=== PATIENT | male | born 1955 | race Caucasian/White ===

== ENCOUNTER → 2017-09-27 11:11 | Outpatient (CLI) | payer MEDICARE, MEDICAID, SELFPAY ==
[2017-09-27 12:39] LABS: Troponin I < 0.02 ng/ml (0.00-0.06)
== END ==
PROVIDERS: PCP Nurse Practitioner; Visit Provider Nurse Practitioner
DX: I73.9 Peripheral vascular disease, unspecified (principal); I10 Essential (primary) hypertension; M79.602 Pain in left arm
CPT/HCPCS: 36415; 84484

== ENCOUNTER → 2017-09-28 15:04 | Outpatient (CLI) | payer MEDICARE, MEDICAID, SELFPAY ==
--- NOTE | 2017-09-28 15:08 | NVE_ITS ---
Venous Exam Indications: 729.5 Pain in limb. IMPRESSIONS No evidence of deep or superficial vein thrombosis involving the veins of the left upper extremity Left upper extremity venous duplex. Doppler flow study including spectral analysis, color and guzman scale imaging. Location: Vascular laboratory. Patient status: Outpatient. CRITICAL FINDINGS - Reported to: Rosa Maria - Read back and verified. - 09/28/17 - 1530 - None Tables: Venous flow and imaging: + + + Location Flow properties + + + Left internal jugular Normal phasicity; spontaneous; compressible + + + Left subclavian Normal phasicity; spontaneous; normal augmentation; compressible + + + Left axillary Normal phasicity; spontaneous; normal augmentation; compressible + + + Left brachial Normal phasicity; spontaneous; normal augmentation; compressible + + + Left cephalic Normal phasicity; spontaneous; normal augmentation; compressible + + + Left basilic Normal phasicity; spontaneous ; normal augmentation; compressible + + + Left radial Compressible + + + Left ulnar Compressible + + + Right subclavian Normal phasicity; spontaneous; normal augmentation; compressible + + + (Report amended ) Electronically signed by: Mauricio Sellers [id number]
== END ==
PROVIDERS: PCP Nurse Practitioner; Visit Provider Nurse Practitioner
DX: M79.602 Pain in left arm (principal)
CPT/HCPCS: 93971

== ENCOUNTER → 2017-10-10 10:34 | Outpatient (CLI) | payer MEDICARE, MEDICAID, SELFPAY ==
--- NOTE | 2017-10-10 10:38 | NM_ITS ---
NM mike perf SPECT rest str CLINICAL INDICATION: Chest pain, shortness of breath, fatigue, hypertension, hypercholesterolemia, tobacco use, positive family history ITS.REASON: ABNORMAL EKG ORDERING PHYSICIAN: Mary Khan PATIENT AGE: 62 years COMPARISON: None DOSE: 10.92 mCi technetium Myoview intravenously at rest followed by 32.1 mCi technetium Myoview following the intravenous ministration of 0.4 mg of Lexiscan. Resting blood pressure is 121/63. Stress blood pressure 107/61. FINDINGS: Ejection fraction is calculated to be 44% which is low. A fixed defect is present in the mid aspect of the lateral extending to the base of the heart. This persists on both the stress and delayed images. There is slight decrease activity within the inferior wall which becomes normal on the delayed images and could be due to some mild ischemic change.. IMPRESSION: 1. Low ejection fraction of 44%. 2. Fixed defect in the lateral wall consistent with an area of infarction. 3. Suspect mild ischemic change in the inferior wall
--- NOTE | 2017-10-10 12:07 | HMH.ITSHM ---
gabapentin atorvastatin clopidogrel benazepril metoprolol cycloberzapr, asp
== END ==
PROVIDERS: Family Provider Family Medicine; PCP Nurse Practitioner; Visit Provider Nurse Practitioner
DX: R94.31 Abnormal electrocardiogram [ECG] [EKG] (principal)
CPT/HCPCS: 78452; 93017; A9502; J2785

== ENCOUNTER 2017-10-24 07:34 | Day surgery (SDC) | payer MEDICARE, MEDICAID, SELFPAY ==
[2017-10-24] VITALS (15 sets, daily range): BP systolic 112–150; BP diastolic 58–77; PULSE 59–69; RESP 16–18; TEMP 36.6; O2SAT 91–97; BMI 26.2
--- NOTE | 2017-10-24 | IR_ITS ---
CARDIAC CATHETERIZATION DATE OF CATHETERIZATION:10/24/2017 9:51 AM PROCEDURES: 1. Left heart catheterization 2. Left ventriculogram 3. Selective coronary angiogram 4. Drug-eluting stent deployment to the ostial proximal LAD 5. Drug eluding stent deployment to the proximal dominant circumflex artery INDICATION FOR TEST: 1. Coronary artery disease 2. High risk abnormal Myoview 3. Angina pectoris class III and IV Informed consent was obtained prior to the procedure. COMPLICATIONS: None ESTIMATED BLOOD LOSS: Less than 10 ml. TECHNIQUE: One percent lidocaine used to anesthetize the right anterior aspect of the wrist. The right radial artery was accessed via the Seldinger technique. A 6 [place] sheath was placed in the right radial artery. 2.5 mg of verapamil, 800 mcg of nitroglycerin and 5000 U Heparin were given through the arterial sheath. The trap catheter was also used to perform left heart catheterization left ventriculogram and selective coronary angiogram. At the end of the diagnostic procedure an additional 2000 units of heparin was administered intravenously. The ACT was out of range. Patient had artery taken Plavix prior to the procedure. A JL 3 guide catheter was used intubate the LAD and a choice PT extra-support wire was placed distally. A 2.5 x 12 mm resolute Phil stent was deployed at 22 kareem for 30 seconds reducing the stenosis to less than 10%. DEANA-3 flow was present before and after the procedure. The same guide catheter was placed into the ostium of the circumflex artery and the wire was placed distally. A 2.5 x 30 millimeter resolute Phil stent was deployed at 22 kareem reducing the severe stenosis to 0%. DEANA-3 flow was present before and after the procedure. Excellent angiographic results were obtained. At the end of the procedure the sheath was removed good hemostasis was achieved using TR banding patient was transferred to the postop holding area in stable condition ANGIOGRAPHIC RESULTS: 1. The left anterior descending artery originates from the left coronary cusp with its own ostium. Ostially there is an 80% focal stenosis with additional 40% stenoses after the first septal electrical appliance repairer and an additional 50-60% relatively focal stenosis after a large first diagonal artery. Remaining LAD has 30 and 40% stenoses. The first diagonal artery has proximal and mid vessel 40 and 50% stenoses 2. The circumflex artery originates from the left coronary cusp with its own ostium and is a dominant vessel. Proximally there is a 50% stenosis followed by an additional calcified 70-80% stenosis distal to the first obtuse marginal artery.. Distal to the second obtuse marginal artery a focal 80% stenosis is present proximal to the terminal obtuse marginal artery. The first obtuse marginal artery has an ostial 80-90% stenosis and is less than 2 mm in diameter while the second obtuse marginal artery has an ostial proximal 50-60% stenosis and is 2.25 mm in diameter. The terminal obtuse marginal artery is 1.5 mm in diameter and has a proximal 80-90% stenosis 3. The right coronary artery is nondominant yet still a moderate sized vessel and has proximal 40-50% long 60% stenosis and then a focal calcified complex 90% stenosis immediately adjacent to an RV marginal branch. Distal to the RV marginal R additional 50 and 60% stenoses. The terminal distal portion gives rise to appears to be a posterior descending artery which has very proximal 60 and 70% stenoses with mid vessel 50% stenosis 4. The GALAN ventriculogram reveals normal 65% 5. The left ventricular end-diastolic pressure 10 mmHg IMPRESSION: 1. Coronary artery disease as described above 2. Successful stenting of the ostial proximal LAD severe disease reduced to 0% with 1 drug-eluting stent 3. Successful joaquin
[2017-10-24 08:19] LABS: Basophils # 0.1 K/mm3 (0-0.2); Basophils % 0.7 % (0.1-2.0); Eosinophils # 0.2 K/mm3 (0.0-0.4); Eosinophils % 2.6 % (0.1-12.0); Hematocrit 45.5 % (42.0-52.0); Hemoglobin 14.7 g/dL (14.1-18.0); Mean Corpuscular HGB Conc 32.2 g/dL (31.8-35.4); Mean Corpuscular Hemoglobin 30.2 pg (27.0-31.2); Mean Corpuscular Volume 93.7 fl (80-94); Mean Platelet Volume 8.4 fl (7.4-10.4); Monocytes # 0.6 K/mm3 (0.1-1.0); Monocytes % 8.1 % (1.7-9.3); Neutrophils # 4.2 K/mm3 (1.8-7.8); Neutrophils % 59.6 % (37.0-80.0); Platelet Count 270 K/mm3 (142-424); Red Blood Count 4.86 M/mm3 (4.60-6.20); Red Cell Distribution Width 13.9 % (11.5-17.5)
[2017-10-24 08:21] LABS: Anion Gap 10.8 mEq/L (5-15); Blood Urea Nitrogen 11 mg/dL (7-18); Carbon Dioxide 27 mmol/L (21.0-32.0); Chloride 102 mmol/L (98-107); Creatinine Clearance Estimated 64 mL/min (0-300); Creatinine,Serum 0.86 mg/dL (0.70-1.30); Estimated Glomerular Filt Rate 90 ml/min (>60); GFR (African American) 109 ML/MIN (>60); Glucose 103 mg/dL (74-106); Potassium 3.8 mmoL/L (3.5-5.1); Sodium 136 mmol/L (136-145)
[2017-10-24 13:51] LABS: CATHL Activated Clotting Time > 400 SEC (74-125)
== END 2017-10-24 14:24 | disposition home or self-care (01) ==
PROVIDERS: Family Provider Family Medicine; PCP Nurse Practitioner; Visit Provider Internal Medicine
DX: I25.118 Atherosclerotic heart disease of native coronary artery with other forms of angina pectoris (principal); I25.83 Coronary atherosclerosis due to lipid rich plaque; I25.82 Chronic total occlusion of coronary artery; I10 Essential (primary) hypertension; R94.39 Abnormal result of other cardiovascular function study; R94.31 Abnormal electrocardiogram [ECG] [EKG]; R06.02 Shortness of breath; Z72.0 Tobacco use; Z95.5 Presence of coronary angioplasty implant and graft; Z95.820 Peripheral vascular angioplasty status with implants and grafts
CPT/HCPCS: 80048; 85025; 85347; 92928; 93458; 99152; 99153; C1725; C1769; C1876; C9600; J1644; Q9967

== ENCOUNTER 2017-11-06 08:47 | Outpatient (RCR) | payer MEDICARE, MEDICAID, SELFPAY | END 2018-02-04 14:56 | disposition home or self-care (01) | LOC: PT 08:47 | PROVIDERS: Family Provider Family Medicine; PCP Nurse Practitioner; Visit Provider Internal Medicine | DX: Z95.5 Presence of coronary angioplasty implant and graft (principal) | CPT/HCPCS: 93798 ==

== ENCOUNTER → 2017-11-09 09:27 | Outpatient (CLI) | payer MEDICARE, MEDICAID, SELFPAY ==
[2017-11-09 10:38] VITALS: PULSE 60; PULSE 61
== END ==
PROVIDERS: Family Provider Family Medicine; PCP Nurse Practitioner; Visit Provider Internal Medicine
DX: I20.9 Angina pectoris, unspecified (principal); R94.39 Abnormal result of other cardiovascular function study; R94.31 Abnormal electrocardiogram [ECG] [EKG]; R06.02 Shortness of breath; R20.0 Anesthesia of skin; I73.9 Peripheral vascular disease, unspecified; Z72.0 Tobacco use
CPT/HCPCS: 94060; 94640; 94727; 94729

== ENCOUNTER 2017-11-11 20:39 | Observation (INO) | payer MEDICARE, MEDICAID, SELFPAY ==
[2017-11-11] VITALS (7 sets, daily range): BP systolic 134–149; BP diastolic 63–75; PULSE 60–81; RESP 18–20; TEMP 36.4–37.1; O2SAT 95–99; BMI 26.2; BMI 23.7
--- NOTE | 2017-11-11 20:58 | XR_ITS ---
XR chest portable HISTORY: ITS.REASON: shortness of air ORDERING PHYSICIAN: Inder Mendez MD PATIENT AGE: 62 years COMPARISON: None available FINDINGS: There is mild cardiomegaly without failure. No lobar consolidation or collapse is evident. A calcified granuloma is present in the left upper lobe. There is a nodular opacity left perihilar region at 8 mm nonspecific. Decreased density is noted in the right lower lobe and could be related to some air trapping/emphysematous change. IMPRESSION: 1. Cardiomegaly without failure. 2. Indeterminate 8 mm left perihilar nodule. Consider long-term follow-up to confirm stability 3. Lucency in the right lung base which could be related to air trapping or focal emphysematous change
[2017-11-11 21:08] LABS: Basophils # 0.1 K/mm3 (0-0.2); Basophils % 0.8 % (0.1-2.0); Eosinophils # 0.2 K/mm3 (0.0-0.4); Eosinophils % 2.5 % (0.1-12.0); Hematocrit 47.6 % (42.0-52.0); Hemoglobin 15.1 g/dL (14.1-18.0); Lymphocytes # 3.4 K/mm3 (0.7-4.5); Lymphocytes % 40.7 K/mm3 (10-50); Mean Corpuscular HGB Conc 31.7 g/dL (31.8-35.4); Mean Corpuscular Volume 94.6 fl (80-94); Mean Platelet Volume 8.7 fl (7.4-10.4); Monocytes # 0.6 K/mm3 (0.1-1.0); Monocytes % 7.7 % (1.7-9.3); Neutrophils % 48.3 % (37.0-80.0); Platelet Count 202 K/mm3 (142-424); Red Blood Count 5.03 M/mm3 (4.60-6.20); Red Cell Distribution Width 14.1 % (11.5-17.5); White Blood Count 8.3 K/mm3 (4.8-10.8)
[2017-11-11 21:32] LABS: Alanine Aminotransferase 28 U/L (12-78); Albumin Level 3.5 gm/dL (3.4-5.0); Albumin/Globulin Ratio 0.8 (1.1-1.8); Alkaline Phosphatase 91 U/L (46-116); Anion Gap 11.7 mEq/L (5-15); Aspartate Amino Transferase 21 U/L (15-37); Bilirubin,Total 0.3 mg/dL (0.2-1.0); Blood Urea Nitrogen 18 mg/dL (7-18); CKMB Relative Index 1.1 U/L (0-4.0); Calcium 8.8 mg/dL (8.5-10.1); Carbon Dioxide 27 mmol/L (21.0-32.0); Chloride 102 mmol/L (98-107); Creatine Kinase 66 U/L (39-308); Creatine Kinase MB 0.7 ng/ml (0.0-3.6); Creatinine Clearance Estimated 35 mL/min (0-300); Creatinine,Serum 1.81 mg/dL (0.70-1.30); Estimated Glomerular Filt Rate 38 ml/min (>60); GFR (African American) 46 ML/MIN (>60); Globulin 4.5 gm/dl (1.3-3.2); Glucose 101 mg/dL (74-106); Potassium 3.7 mmoL/L (3.5-5.1); Sodium 137 mmol/L (136-145); Troponin I < 0.02 ng/ml (0.00-0.06)
--- NOTE | 2017-11-11 22:05 | HMH.EDCP ---
ED Disposition Clinical Impression: Renal insufficiency, S/P BKA (below knee amputation) bilateral Chest pain Qualifiers: Chest pain type: unspecified Qualified Code(s): R07.9 - Chest pain, unspecified Disposition: Admitted as Observation Condition on Discharge: Good Referrals: Mary Khan APRN [Primary Care Provider] - - Critical Care Critical Care Time: No Attestation: On 11/11/17, the high probability of a clinically significant, sudden or life threatening deterioration of the following system(s) required my full and direct attention, intervention and personal management. The time I documented below is in addition to time spent performing reported procedures but includes the following listed in this critical care notation. Medical Decision Making - Medical Records Medical records reviewed: Yes: I reviewed the patient's medical records. - Nelson Inquiry Pt receiving controlled substance: No Vital Signs: 11/11/17 20:40 11/11/17 21:22 11/11/17 22:11 Temperature 97.6 F 98.7 F 98.1 F Temperature Source Oral Oral Oral Pulse Rate 80 Pulse Rate [Right Radial] 61 81 Respiratory Rate 18 20 18 Blood Pressure 134/70 Blood Pressure [Right Arm] 149/69 148/72 Blood Pressure Mean [Right Arm] 95 97 Blood Pressure Source [Right Arm] Automatic Cuff Automatic Cuff Blood Pressure Position Sitting Blood Pressure Position [Right Arm] Sitting Sitting 02 Sat by Pulse Oximetry 97 97 Oxygen Delivery Method Room Air Room Air Room Air - Lab Data Lab results reviewed: Yes: I reviewed the patient's lab results. Lab Results 11/11/17 20:45: WBC 8.3, RBC 5.03, Hgb 15.1, Hct 47.6, MCV 94.6 H, MCH 30.0, MCHC 31.7 L, RDW 14.1, Plt Count 202, MPV 8.7, Neut % (Auto) 48.3, Lymph % (Auto) 40.7, [place] % (Auto) 7.7, Eos % (Auto) 2.5, Baso % (Auto) 0.8, Neut # (Auto) 4.0, Lymph # (Auto) 3.4, [place] # (Auto) 0.6, Eos # (Auto) 0.2, Baso # (Auto) 0.1 11/11/17 20:45: Sodium 137, Potassium 3.7, Chloride 102, Carbon Dioxide 27, Anion Gap 11.7, BUN 18, Creatinine 1.81 H, Estimated Creat Clear 35, Estimated GFR 38 L, Est GFR ( Amer) 46 L, Glucose 101, Calcium 8.8, Total Bilirubin 0.3, AST 21, ALT 28, Alkaline Phosphatase 91, Total Creatine Kinase 66, CK-MB (CK-2) 0.7, CK-MB (CK-2) Rel Index 1.1, Troponin I < 0.02, Total Protein 8.0, Albumin 3.5, Globulin 4.5 H, Albumin/Globulin Ratio 0.8 L Result diagrams: 11/11/17 20:45 11/11/17 20:45 Orders (Tests/Meds): ORDERS Category Date Time Status XR chest portable Stat Exams 11/11/17 20:58 Taken ECG Request by /Robbie Stat Y 11/11/17 20:58 Ordered - Radiology Data #1 Image(s): Chest Image Reviewed: Yes I reviewed the patient's radiology image Preliminary Findings: Normal/NAD - ECG Data Tracing #1 Normal Sinus Rhythm: Yes Ischemic changes: non-specific ST-T wave changes, t wave inversions - Physician Consults Physician Consulted: neris Reason -: Admission Chest Pain HPI - General Chief Complaint: Chest Pain Stated Complaint: chest pain Time Seen by Provider: 11/11/17 22:05 Mode of Arrival: Wheelchair Source of Information: Patient, Spouse, Medical Record Limitations: No Limitations Description of Symptoms (Recalled from ER Triage Doc. by RN): Pt. reports difficulty breathing, chest pain, tingling in the left side of his neck and down his arm that started several hours ago. Pt reports Dr. Darnell placed stents on October 24 2017 - History of Present Illness HPI narrative: pt with known cad with 2 episodes today of diaphoresis - pt with no def chest pain but some lt upper ext pain - no sob - he has been compliant with meds MD complaint: chest pain indicative of cardiac Onset (ago): hour(s) Duration: now resolved Activity at onset: during rest Pain location: other Severity: similar to previous episodes Quality: similar to prior [place] Pain radiation: LUE Relieving factors: nothing Associated symptoms: diaphoresis Risk Factors for CAD: Family
--- NOTE | 2017-11-11 22:10 | ED_ITS ---
ED Disposition Clinical Impression: Renal insufficiency, S/P BKA (below knee amputation) bilateral Chest pain Qualifiers: Chest pain type: unspecified Qualified Code(s): R07.9 - Chest pain, unspecified Disposition: Admitted as Observation Condition on Discharge: Good Referrals: Mary Khan APRN [Primary Care Provider] - - Critical Care Critical Care Time: No Attestation: On 11/11/17, the high probability of a clinically significant, sudden or life threatening deterioration of the following system(s) required my full and direct attention, intervention and personal management. The time I documented below is in addition to time spent performing reported procedures but includes the following listed in this critical care notation. Medical Decision Making - Medical Records Medical records reviewed: Yes: I reviewed the patient's medical records. - Nelson Inquiry Pt receiving controlled substance: No Vital Signs: 11/11/17 20:40 11/11/17 21:22 11/11/17 22:11 Temperature 97.6 F 98.7 F 98.1 F Temperature Source Oral Oral Oral Pulse Rate 80 Pulse Rate [Right Radial] 61 81 Respiratory Rate 18 20 18 Blood Pressure 134/70 Blood Pressure [Right Arm] 149/69 148/72 Blood Pressure Mean [Right Arm] 95 97 Blood Pressure Source [Right Arm] Automatic Cuff Automatic Cuff Blood Pressure Position Sitting Blood Pressure Position [Right Arm] Sitting Sitting 02 Sat by Pulse Oximetry 97 97 Oxygen Delivery Method Room Air Room Air Room Air - Lab Data Lab results reviewed: Yes: I reviewed the patient's lab results. Lab Results 11/11/17 20:45: WBC 8.3, RBC 5.03, Hgb 15.1, Hct 47.6, MCV 94.6 H, MCH 30.0, MCHC 31.7 L, RDW 14.1, Plt Count 202, MPV 8.7, Neut % (Auto) 48.3, Lymph % (Auto ) 40.7, [place] % (Auto) 7.7, Eos % (Auto) 2.5, Baso % (Auto) 0.8, Neut # (Auto) 4.0, Lymph # (Auto) 3.4, [place] # (Auto) 0.6, Eos # (Auto) 0.2, Baso # (Auto) 0.1 11/11/17 20:45: Sodium 137, Potassium 3.7, Chloride 102, Carbon Dioxide 27, Anion Gap 11.7, BUN 18, Creatinine 1.81 H, Estimated Creat Clear 35, Estimated GFR 38 L, Est GFR ( Amer) 46 L, Glucose 101, Calcium 8.8, Total Bilirubin 0.3, AST 21, ALT 28, Alkaline Phosphatase 91, Total Creatine Kinase 66 , CK-MB (CK-2) 0.7, CK-MB (CK-2) Rel Index 1.1, Troponin I < 0.02, Total Protein 8.0, Albumin 3.5, Globulin 4.5 H, Albumin/Globulin Ratio 0.8 L Result diagrams: 11/11/17 20:45 11/11/17 20:45 Orders (Tests/Meds): ORDERS Category Date Time Status XR chest portable Stat Exams 11/11/17 20:58 Taken ECG Request by /Robbie Stat Y 11/11/17 20:58 Ordered - Radiology Data #1 Image(s): Chest Image Reviewed: Yes I reviewed the patient's radiology image Preliminary Findings: Normal/NAD - ECG Data Tracing #1 Normal Sinus Rhythm: Yes Ischemic changes: non-specific ST-T wave changes, t wave inversions - Physician Consults Physician Consulted: neris Reason -: Admission Chest Pain HPI - General Chief Complaint: Chest Pain Stated Complaint: chest pain Time Seen by Provider: 11/11/17 22:05 Mode of Arrival: Wheelchair Source of Information: Patient, Spouse, Medical Record Limitations: No Limitations Description of Symptoms (Recalled from ER Triage Doc. by RN): Pt. reports difficulty breathing, chest pain, tingling in the left side of his neck and down his arm that started several hours ago. Pt repo
--- NOTE | 2017-11-11 22:10 | PC.NURSE ---
dr hess speaking with dr cordon
--- NOTE | 2017-11-11 22:24 | PC.NURSE ---
Called report to [facility]
--- NOTE | 2017-11-11 23:19 | PC.NURSE ---
HEIGHT WAS STATED WITH PROSTHETIC LEGS ON
[2017-11-12] VITALS: PULSE 80
[2017-11-12 03:55] VITALS: BP 98/49; PULSE 79; RESP 16; TEMP 36.5; O2SAT 95
--- NOTE | 2017-11-12 04:20 | PC.NURSE ---
NO ACUTE CHANGES NOTED. PT HAS RESTED WELL THIS SHIFT. HAS NOT C/O ANY ADDITIONAL PAIN OR SOA. PT REMAINS ON RA. VSS. PT IS NPO AT THIS TIME FOR VIGNESH CONSULT. NO CONCERNS AT THIS TIME. WILL CONTINUE TO MONITOR.
[2017-11-12 06:00] VITALS: PULSE 70
[2017-11-12 06:36] LABS: Basophils # 0.1 K/mm3 (0-0.2); Basophils % 0.9 % (0.1-2.0); Eosinophils # 0.3 K/mm3 (0.0-0.4); Eosinophils % 3.8 % (0.1-12.0); Hematocrit 42.6 % (42.0-52.0); Hemoglobin 14.1 g/dL (14.1-18.0); Lymphocytes # 2.1 K/mm3 (0.7-4.5); Lymphocytes % 31.6 K/mm3 (10-50); Mean Corpuscular HGB Conc 33.2 g/dL (31.8-35.4); Mean Corpuscular Hemoglobin 30.2 pg (27.0-31.2); Mean Corpuscular Volume 91.2 fl (80-94); Mean Platelet Volume 8.8 fl (7.4-10.4); Monocytes # 0.5 K/mm3 (0.1-1.0); Monocytes % 7.3 % (1.7-9.3); Neutrophils # 3.8 K/mm3 (1.8-7.8); Neutrophils % 56.4 % (37.0-80.0); Platelet Count 179 K/mm3 (142-424); Red Blood Count 4.67 M/mm3 (4.60-6.20); Red Cell Distribution Width 13.3 % (11.5-17.5); White Blood Count 6.7 K/mm3 (4.8-10.8)
[2017-11-12 06:50] LABS: Anion Gap 10.9 mEq/L (5-15); Blood Urea Nitrogen 16 mg/dL (7-18); Carbon Dioxide 25 mmol/L (21.0-32.0); Chloride 107 mmol/L (98-107); Creatinine Clearance Estimated 58 mL/min (0-300); Creatinine,Serum 0.95 mg/dL (0.70-1.30); Estimated Glomerular Filt Rate 80 ml/min (>60); GFR (African American) 97 ML/MIN (>60); Glucose 102 mg/dL (74-106); Potassium 3.9 mmoL/L (3.5-5.1); Sodium 139 mmol/L (136-145); Troponin I < 0.02 ng/ml (0.00-0.06)
--- NOTE | 2017-11-12 07:06 | HMH.HP ---
*Admission Date: 11/11/17 *Chief complaint: Diaphoresis and left arm pain *History of present illness: 62-year-old male with known coronary artery disease status post cardiac catheterization [address] Darnell with subsequent stenting ?2 presented to the emergency department with diaphoresis and left arm pain which was reminiscent of prior episodes that led to diagnosis of coronary artery disease. Patient came to the emergency department with the story and decision was made to admit him for rule out of myocardial infarction with serial EKG and enzymes. Of note the patient never said to me that he was having chest pain or chest pressure. Patient has ruled out and is awaiting cardiology consultation this morning [facility] History Medical History: Reports:: Coronary Artery Disease, Cerebrovascular Accident, Hypertension, Peripheral Artery Disease Denies:: Cancer, Diabetes Mellitus Type 1, Diabetes Mellitus Type 2, Internal Pacemaker, MRSA, Seizures Other Surgeries: Yes: Cardiac Catheterization, Coronary Stent. No: Pacemaker Amputation: Yes (R AKA, L BKA) Fractures: No - *Social History Smoking Status: Former smoker Tobacco Type: cigarettes Smoking End Date: 2017 Alcohol Intake: never Occupational Status: employed Housing: house Household Members: spouse - Psychiatric History Expresses thoughts of harming self/others: None Suicide Plan Description: No Plan *Family Hx:: No significant family history Review of Systems - Review of Systems Review of systems:: pertinent systems reviewed and negative unless documented below - Constitutional Denies body ache(s), Denies chills, Denies daytime sleepiness, Denies headache(s) - *Cardiovascular Reports excessive sweating, Reports radiating jaw, neck or arm pain, Denies chest pain, Denies chest pain at rest - *Neurologic Denies seizure-like activity Meds Home Medications Medication Instructions Recorded Confirmed Type aspirin 81 mg tablet,delayed 81 mg PO DAILY tab 10/22/17 11/11/17 History release atorvastatin 40 mg tablet 40 mg PO DAILY tab 10/22/17 11/11/17 History benazepril 20 mg tablet 20 mg PO DAILY tab 10/22/17 11/11/17 History clopidogrel 75 mg tablet 75 mg PO DAILY tab 10/22/17 11/11/17 History gabapentin 400 mg capsule 400 mg PO TID 10/22/17 11/11/17 History metoprolol tartrate 25 mg tablet 12.5 mg PO BID tab 10/23/17 11/11/17 History Allergies Allergy/AdvReac Type Severity Reaction Status Date / Time sulfamethoxazole Allergy Intermediate Verified 11/11/17 20:51 [From Bactrim] trimethoprim [From Bactrim] Allergy Intermediate Verified 11/11/17 20:51 zolpidem [From Ambien] Allergy Unknown PT STATES Verified 11/11/17 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 Exam Vital signs and Labs for Last 24 Hours: Temp Pulse Resp BP Pulse Ox 97.7 F 70 16 98/49 95 11/12/17 03:55 11/12/17 06:00 11/12/17 03:55 11/12/17 03:55 11/12/17 03:55 Laboratory Results - last 24 hr 11/12/17 06:20: WBC 6.7, RBC 4.67, Hgb 14.1, Hct 42.6, MCV 91.2, MCH 30.2, MCHC 33.2, RDW 13.3, Plt Count 179, MPV 8.8, Neut % (Auto) 56.4, Lymph % (Auto) 31.6, [place] % (Auto) 7.3, Eos % (Auto) 3.8, Baso % (Auto) 0.9, Neut # (Auto) 3.8, Lymph # (Auto) 2.1, [place] # (Auto) 0.5, Eos # (Auto) 0.3, Baso # (Auto) 0.1 11/12/17 06:20: Sodium 139, Potassium 3.9, Chloride 107, Carbon Dioxide 25, Anion Gap 10.9, BUN 16, Creatinine 0.95 D, Estimated Creat Clear 58, Estimated GFR 80, Est GFR ( Amer) 97 D, Glucose 102, Troponin I < 0.02 I & O for Last 24 hours: Intake & Output 11/09/17 11/10/17 11/11/17 11/12/17 11:59 11:59 11:59 11:59 Intake Total 730 / 730 Output Total 725 / 725 Balance Weight 117 lb 5 oz Narrative: Patient is awake and alert sitting up in bed. He will be in any distress. HEENT head is normocephalic atraumatic head with reactive pupils and a moist oropharynx. Neck is without carotid bruits. Lungs are clear to
--- NOTE | 2017-11-12 07:09 | P.HP_ITS ---
*Admission Date: 11/11/17 *Chief complaint: Diaphoresis and left arm pain *History of present illness: 62-year-old male with known coronary artery disease status post cardiac catheterization [address] Darnell with subsequent stenting ?2 presented to the emergency department with diaphoresis and left arm pain which was reminiscent of prior episodes that led to diagnosis of coronary artery disease. Patient came to the emergency department with the story and decision was made to admit him for rule out of myocardial infarction with serial EKG and enzymes. Of note the patient never said to me that he was having chest pain or chest pressure. Patient has ruled out and is awaiting cardiology consultation this morning [facility] History Medical History: Reports:: Coronary Artery Disease, Cerebrovascular Accident, Hypertension, Peripheral Artery Disease Denies:: Cancer, Diabetes Mellitus Type 1, Diabetes Mellitus Type 2, Internal Pacemaker, MRSA, Seizures Other Surgeries: Yes: Cardiac Catheterization, Coronary Stent. No: Pacemaker Amputation: Yes (R AKA, L BKA) Fractures: No - *Social History Smoking Status: Former smoker Tobacco Type: cigarettes Smoking End Date: 2017 Alcohol Intake: never Occupational Status: employed Housing: house Household Members: spouse - Psychiatric History Expresses thoughts of harming self/others: None Suicide Plan Description: No Plan *Family Hx:: No significant family history Review of Systems - Review of Systems Review of systems:: pertinent systems reviewed and negative unless documented below - Constitutional Denies body ache(s), Denies chills, Denies daytime sleepiness, Denies headache(s ) - *Cardiovascular Reports excessive sweating, Reports radiating jaw, neck or arm pain, Denies chest pain, Denies chest pain at rest - *Neurologic Denies seizure-like activity Meds Home Medications Medication Instructions Recorded Confirmed Type aspirin 81 mg tablet,delayed 81 mg PO DAILY tab 10/22/17 11/11/17 History release atorvastatin 40 mg tablet 40 mg PO DAILY tab 10/22/17 11/11/17 History benazepril 20 mg tablet 20 mg PO DAILY tab 10/22/17 11/11/17 History clopidogrel 75 mg tablet 75 mg PO DAILY tab 10/22/17 11/11/17 History gabapentin 400 mg capsule 400 mg PO TID 10/22/17 11/11/17 History metoprolol tartrate 25 mg tablet 12.5 mg PO BID tab 10/23/17 11/11/17 History Allergies Allergy/AdvReac Type Severity Reaction Status Date / Time sulfamethoxazole Allergy Intermediate Verified 11/11/17 20:51 [From Bactrim] trimethoprim [From Bactrim] Allergy Intermediate Verified 11/11/17 20:51 zolpidem [From Ambien] Allergy Unknown PT STATES Verified 11/11/17 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 Vital signs and Labs for Last 24 Hours: Temp Pulse Resp BP Pulse Ox 97.7 F 70 16 98/49 95 11/12/17 03:55 11/12/17 06:00 11/12/17 03:55 11/12/17 03:55 11/12/17 03:55 Laboratory Results - last 24 hr 11/12/17 06:20: WBC 6.7, RBC 4.67, Hgb 14.1, Hct 42.6, MCV 91.2, MCH 30.2, MCHC 33.2, RDW 13.3, Plt Count 179, MPV 8.8, Neut % (Auto) 56.4, Lymph % (Auto) 31.6 , [place] % (Auto) 7.3, Eos % (Auto) 3.8, Baso % (Auto) 0.9, Neut # (Auto) 3.8, Lymph # (Auto) 2.1, [place] # (Auto) 0.5, Eos # (Auto) 0.3, Baso # (Auto) 0.1 11/12/17 06:20: Sodium 139, Potassium 3.9, Chloride 107, Carbon Dioxide 25, Anion Gap 10.9, BUN 16, Creatinine 0.95 D, Estimated C
--- NOTE | 2017-11-12 07:15 | HMH.DCSUM ---
General - General Admission date: 11/11/17 Discharge date: 11/12/17 HPI HPI: 62-year-old male with known coronary artery disease status post cardiac catheterization [address] Darnell with subsequent stenting ?2 presented to the emergency department with diaphoresis and left arm pain which was reminiscent of prior episodes that led to diagnosis of coronary artery disease. Patient came to the emergency department with the story and decision was made to admit him for rule out of myocardial infarction with serial EKG and enzymes. Of note the patient never said to me that he was having chest pain or chest pressure. Patient has ruled out and is awaiting cardiology consultation this morning Hospital Course Hospital Course: Cardial infarction with serial EKG and enzymes. Cardiology was consulted after patient ruled out and decision was made to proceed with medical management of patient's coronary artery disease due to the risk of obstructing the RV marginal with stenting of the right coronary artery. This was explained to the patient. Amlodipine will be added to his regimen patient will follow-up in cardiology clinic. Objective Vital signs: Temp Pulse Resp BP Pulse Ox 97.7 F 70 16 98/49 95 11/12/17 03:55 11/12/17 06:00 11/12/17 03:55 11/12/17 03:55 11/12/17 03:55 Results Labs on day of discharge: Labs from last 24 hours 11/12/17 11/12/17 06:20 06:20 WBC 6.7 RBC 4.67 Hgb 14.1 Hct 42.6 MCV 91.2 MCH 30.2 MCHC 33.2 RDW 13.3 Plt Count 179 MPV 8.8 Neut % (Auto) 56.4 Lymph % (Auto) 31.6 [place] % (Auto) 7.3 Eos % (Auto) 3.8 Baso % (Auto) 0.9 Neut # (Auto) 3.8 Lymph # (Auto) 2.1 [place] # (Auto) 0.5 Eos # (Auto) 0.3 Baso # (Auto) 0.1 Sodium 139 Potassium 3.9 Chloride 107 Carbon Dioxide 25 Anion Gap 10.9 BUN 16 Creatinine 0.95 D Estimated Creat Clear 58 Estimated GFR 80 Est GFR ( Amer) 97 D Glucose 102 Troponin I < 0.02 DS: Diagnosis - Discharge Diagnosis (1) CAD (coronary artery disease) Status: Chronic (2) Left arm pain Status: Acute Discharge Plan - Patient Discharge Instructions DIET: continue same diet - Follow up Plan Follow up with: Roberto Darnell MD [Staff Physician] - 1 week Inder Mendez MD [Family Provider] - 2 weeks Disposition: Home, Self-Nursing Home Medications: Home Medications Medication Instructions Recorded Confirmed Type aspirin 81 mg tablet,delayed 81 mg PO DAILY tab 10/22/17 11/11/17 History release atorvastatin 40 mg tablet 40 mg PO DAILY tab 10/22/17 11/11/17 History benazepril 20 mg tablet 20 mg PO DAILY tab 10/22/17 11/11/17 History clopidogrel 75 mg tablet 75 mg PO DAILY tab 10/22/17 11/11/17 History gabapentin 400 mg capsule 400 mg PO TID 10/22/17 11/11/17 History metoprolol tartrate 25 mg tablet 12.5 mg PO BID tab 10/23/17 11/11/17 History Prescriptions/Medication Reconciliation: New Amlodipine Besylate [Norvasc 5mg tablet] 5 mg PO DAILY #30 tab Continue aspirin 81 mg tablet,delayed release 81 mg PO DAILY tab benazepril 20 mg tablet 20 mg PO DAILY tab clopidogrel 75 mg tablet 75 mg PO DAILY tab gabapentin 400 mg capsule 400 mg PO TID atorvastatin 40 mg tablet 40 mg PO DAILY tab metoprolol tartrate 25 mg tablet 12.5 mg PO BID tab
[2017-11-12 07:25] VITALS: BP 132/61; PULSE 77; RESP 20; TEMP 37.1; O2SAT 94
--- NOTE | 2017-11-12 07:29 | HMH.PHAVTE ---
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 Height: 1.5 m Weight: 53.212 kg Patient Problems: Current Active Problems Chest pain (Acute) Renal insufficiency (Acute) S/P BKA (below knee amputation) bilateral (Chronic) - VTE Risk Labs: VTE Related Lab Results Hgb 14.1 g/dL (14.1-18.0) 11/12/17 06:20 Hct 42.6 % (42.0-52.0) 11/12/17 06:20 Plt Count 179 K/mm3 (142-424) 11/12/17 06:20 BUN 16 mg/dL (7-18) 11/12/17 06:20 Creatinine 0.95 mg/dL (0.70-1.30) D 11/12/17 06:20 Estimated Creat Clear 58 mL/min (0-300) 11/12/17 06:20 Was VTE Risk Assessment Performed: Yes VTE Score: 5 VTE Risk Level: Low Risk - Prophylaxis VTE Prophylaxis Ordered?: Yes Types of VTE Prophylaxis: TEDS Knee High Location of Applied Device: Bilateral Lower Extremeties - VTE Diagnosis Confirmed Treatment or plan recommended: Continue Current Treatment
--- NOTE | 2017-11-12 07:33 | PC.NURSE ---
REPORT HAND OFF TO Preston TOVAR
--- NOTE | 2017-11-12 07:39 | HMH.CNCARD ---
History of Present Illness Consult date: 11/12/17 Requesting physician: Inder Mendez Consult reason: chest pain Chief complaint: Left arm pain, sweating Additional Medical History:: 1. CAD A. Abnormal lexiscan myoview, EF 44% with lateral and inferior ischemia. B. Cardiac cath, 10/24/2017, 3 vessel disease with SUSANNE to LAD and Cx. Medical therapy for RCA due to location of stenosis to RV marginal. Normal LVEF and LVEDP. On DAPT. 2. Tobacco use, continued until stenting 10/24/2017 3. HTN 4. HLD, on statin. 5. JEFFRY, likely stable. 6. PAD A. bilateral BKA History of present illness: 62-year-old white male with known coronary artery disease with recent drug-eluting stent placement to both LAD and circumflex arteries with recommendation for medical therapy of the right coronary artery due to stenosis proximity to large RV marginal branch. Patient was sitting at home yesterday when he developed left arm discomfort in association with diaphoresis which was concerning to him and prompted transportation to the emergency department. Due to recent cardiac history patient was admitted for observation. Troponins returned normal overnight. EKG is sinus without acute ST segment changes. Cardiology consulted for evaluation recommendations. [facility] History Medical History: Reports:: Coronary Artery Disease, Cerebrovascular Accident, Hypertension, Peripheral Artery Disease Denies:: Cancer, Diabetes Mellitus Type 1, Diabetes Mellitus Type 2, Internal Pacemaker, MRSA, Seizures Other Surgeries: Yes: Cardiac Catheterization, Coronary Stent. No: Pacemaker Amputation: Yes (R AKA, L BKA) Fractures: No - *Social History Smoking Status: Former smoker Tobacco Type: cigarettes Smoking End Date: 2017 Alcohol Intake: never Occupational Status: employed Housing: house Household Members: spouse - Psychiatric History Expresses thoughts of harming self/others: None Suicide Plan Description: No Plan *Family Hx:: No significant family history Meds Home Medications Medication Instructions Recorded Confirmed Type aspirin 81 mg tablet,delayed 81 mg PO DAILY tab 10/22/17 11/11/17 History release atorvastatin 40 mg tablet 40 mg PO DAILY tab 10/22/17 11/11/17 History benazepril 20 mg tablet 20 mg PO DAILY tab 10/22/17 11/11/17 History clopidogrel 75 mg tablet 75 mg PO DAILY tab 10/22/17 11/11/17 History gabapentin 400 mg capsule 400 mg PO TID 10/22/17 11/11/17 History metoprolol tartrate 25 mg tablet 12.5 mg PO BID tab 10/23/17 11/11/17 History Allergies Allergy/AdvReac Type Severity Reaction Status Date / Time sulfamethoxazole Allergy Intermediate Verified 11/11/17 20:51 [From Bactrim] trimethoprim [From Bactrim] Allergy Intermediate Verified 11/11/17 20:51 zolpidem [From Ambien] Allergy Unknown PT STATES Verified 11/11/17 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 - *Neurologic Denies headache(s), Denies seizure-like activity Exam Vital signs and Labs for Last 24 Hours: Temp Pulse Resp BP Pulse Ox 98.7 F 77 20 132/61 94 L 11/12/17 07:25 11/12/17 07:25 11/12/17 07:25 11/12/17 07:25 11/12/17 07:25 Laboratory Results - last 24 hr 11/12/17 06:20: WBC 6.7, RBC 4.67, Hgb 14.1, Hct 42.6, MCV 91.2, MCH 30.2, MCHC 33.2, RDW 13.3, Plt Count 179, MPV 8.8, Neut % (Auto) 56.4, Lymph % (Auto) 31.6, [place] % (Auto) 7.3, Eos % (Auto) 3.8, Baso % (Auto) 0.9, Neut # (Auto) 3.8, Lymph # (Auto) 2.1, [place] # (Auto) 0.5, Eos # (Auto) 0.3, Baso # (Auto) 0.1 11/12/17 06:20: Sodium 139, Potassium 3.9, Chloride 107, Carbon Dioxide 25, Anion Gap 10.9, BUN 16, Creatinine 0.95 D, Estimated Creat Clear 58, Estimated GFR 80, Est GFR ( Amer) 97 D, Glucose
--- NOTE | 2017-11-12 07:43 | P.CONS_ITS ---
History of Present Illness Consult date: 11/12/17 Requesting physician: Inder Mendez Consult reason: chest pain Chief complaint: Left arm pain, sweating Additional Medical History:: 1. CAD A. Abnormal lexiscan myoview, EF 44% with lateral and inferior ischemia. B. Cardiac cath, 10/24/2017, 3 vessel disease with SUSANNE to LAD and Cx. Medical therapy for RCA due to location of stenosis to RV marginal. Normal LVEF and LVEDP. On DAPT. 2. Tobacco use, continued until stenting 10/24/2017 3. HTN 4. HLD, on statin. 5. JEFFRY, likely stable. 6. PAD A. bilateral BKA History of present illness: 62-year-old white male with known coronary artery disease with recent drug- eluting stent placement to both LAD and circumflex arteries with recommendation for medical therapy of the right coronary artery due to stenosis proximity to large RV marginal branch. Patient was sitting at home yesterday when he developed left arm discomfort in association with diaphoresis which was concerning to him and prompted transportation to the emergency department. Due to recent cardiac history patient was admitted for observation. Troponins returned normal overnight. EKG is sinus without acute ST segment changes. Cardiology consulted for evaluation recommendations. [facility] History Medical History: Reports:: Coronary Artery Disease, Cerebrovascular Accident, Hypertension, Peripheral Artery Disease Denies:: Cancer, Diabetes Mellitus Type 1, Diabetes Mellitus Type 2, Internal Pacemaker, MRSA, Seizures Other Surgeries: Yes: Cardiac Catheterization, Coronary Stent. No: Pacemaker Amputation: Yes (R AKA, L BKA) Fractures: No - *Social History Smoking Status: Former smoker Tobacco Type: cigarettes Smoking End Date: 2017 Alcohol Intake: never Occupational Status: employed Housing: house Household Members: spouse - Psychiatric History Expresses thoughts of harming self/others: None Suicide Plan Description: No Plan *Family Hx:: No significant family history Meds Home Medications Medication Instructions Recorded Confirmed Type aspirin 81 mg tablet,delayed 81 mg PO DAILY tab 10/22/17 11/11/17 History release atorvastatin 40 mg tablet 40 mg PO DAILY tab 10/22/17 11/11/17 History benazepril 20 mg tablet 20 mg PO DAILY tab 10/22/17 11/11/17 History clopidogrel 75 mg tablet 75 mg PO DAILY tab 10/22/17 11/11/17 History gabapentin 400 mg capsule 400 mg PO TID 10/22/17 11/11/17 History metoprolol tartrate 25 mg tablet 12.5 mg PO BID tab 10/23/17 11/11/17 History Allergies Allergy/AdvReac Type Severity Reaction Status Date / Time sulfamethoxazole Allergy Intermediate Verified 11/11/17 20:51 [From Bactrim] trimethoprim [From Bactrim] Allergy Intermediate Verified 11/11/17 20:51 zolpidem [From Ambien] Allergy Unknown PT STATES Verified 11/11/17 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 - *Neurologic Denies headache(s), Denies seizure-like activity Exam Vital signs and Labs for Last 24 Hours: Temp Pulse Resp BP Pulse Ox 98.7 F 77 20 132/61 94 L 11/12/17 07:25 11/12/17 07:25 11/12/17 07:25 03
[2017-11-12 08:00] VITALS: PULSE 80
== END 2017-11-12 08:30 | disposition home or self-care (01) ==
LOC: ER 21:26 → 2ND 22:22
PROVIDERS: Admitting Provider Emergency Medicine; Emergency Provider Emergency Medicine; Family Provider Family Medicine; PCP Nurse Practitioner; Visit Provider Family Medicine
DX: R07.9 Chest pain, unspecified (principal); M79.602 Pain in left arm; I10 Essential (primary) hypertension; Z72.0 Tobacco use; Z89.512 Acquired absence of left leg below knee; Z89.511 Acquired absence of right leg below knee; R06.09 Other forms of dyspnea; Z95.5 Presence of coronary angioplasty implant and graft; I25.10 Atherosclerotic heart disease of native coronary artery without angina pectoris
CPT/HCPCS: 36415; 71045; 80048; 80053; 82550; 82553; 84484; 85025; 93005; 99284; G0378

== ENCOUNTER → 2018-02-08 07:41 | Outpatient (CLI) | payer MEDICARE, MEDICAID, SELFPAY ==
--- NOTE | 2018-02-08 07:44 | CI_ITS ---
Cerebrovascular Exam Indications: TIA 434.91. Follow-up carotid 433.10. IMPRESSIONS 1. The bilateral vertebral arteries are patent with normal antegrade flow. 2. Study suggests 50-69% stenosis involving the right internal carotid artery. 3. Study suggests 70-99% stenosis involving the left internal carotid artery. 4. Study suggests >60% stenosis involving the right external carotid artery and the left external carotid artery. Carotid duplex study. Complete study and Doppler flow study including spectral analysis, color and guzman scale imaging. Height: Height: 149.9cm. Height: 59in. Weight: Weight: 59kg. Weight: 129.7lb. Body mass index: BMI: 26.3kg/m^2. Body surface area: BSA: 1.58m^2. Location: Vascular laboratory. Patient status: Outpatient. Tables: Arterial flow: + +--------+--------+ Location V sys V ed + +--------+--------+ Right CCA - proximal 94.3cm/s 27cm/s + +--------+--------+ Right CCA - distal 112cm/s 35.2cm/s + +--------+--------+ Right ECA 160cm/s -------- + +--------+--------+ Right ICA - proximal 106cm/s 18.2cm/s + +--------+--------+ Right ICA - mid 71cm/s 22.6cm/s + +--------+--------+ Right ICA - distal 92.4cm/s 30.8cm/s + +--------+--------+ Left CCA - proximal 80.5cm/s 19.3cm/s + +--------+--------+ Left CCA - distal 62.9cm/s 24.8cm/s + +--------+--------+ Left ECA 189cm/s -------- + +--------+--------+ Left ICA - proximal 197cm/s 62cm/s + +--------+--------+ Left ICA - mid 117cm/s 34.9cm/s + +--------+--------+ Left ICA - distal 127cm/s 37.5cm/s + +--------+--------+ Left vertebral 77.5cm/s -------- + +--------+--------+ Velocity ratios: + + + + + + Right, V sys Right, V ed Left, V sys Left, V ed + + + + + + Max ICA/dist CCA 0.95 0.88 3.13 2.5 + + + + + + (Report amended ) Electronically signed by: Lucas Do [id number]
--- NOTE | 2018-02-08 07:44 | CA_ITS ---
PROCEDURE: 2-D M-mode and color Doppler study INDICATIONS FOR THE TEST: Chest pain+ COPD Heart Murmur Tobacco Smoking Palpitations Fatigue Syncope Edema Hypertension+Diabetes Mellitus Rheumatic Fever SOB+FRITZ+Obesity Hyperlipidemia+ Family History HD Additional History PAD, BILATERAL LEG AMPUTATION, CAD, STENTS PATIENT INFORMATION HEIGHT: 59 WEIGHT:130 GENDER: Male B/P:118/55 2-D/M-MODE INTERPRETATION: 2-D MEASUREMENTS OBSERVED VALUES IN CMS Right Ventricular Dimension (RVDd) 2.3 Interventricular Septum (Thickness)(IVsd) 1.6 Left Ventricular Internal Dimensions(LVIDd) 3.5 Left Ventricular Posterior Wall (Thickness)(LVPWd) 1.1 Aortic Root 3.2 Aortic Cusp Separation 2.0 Left Atrial Dimensions (LAD) 3.9 2D 1. Left atrium is mildly enlarged, left ventricle is normal size, mild concentric left ventricular hypertrophy, visually estimated ejection fraction 50% with inferobasal wall hypokinesis. 2. The right atrium and right ventricle are normal size and contractility. 3. The aortic valve is thickened and calcified, leaflet continue to display mobility. 4. The mitral valve has mitral annular calcification. 5. The tricuspid valve leaflets are minimally thickened. 6. The pulmonic valve is poorly visualized. 7. No significant pericardial effusion noted. DOPPLER INTERROGATION: Doppler interrogation of the aortic, mitral and tricuspid valvular presence of mild mitral and tricuspid regurgitation. Tricuspid regurgitant jet velocity is insufficient for calculation of the right ventricular systolic pressure, grade 1 diastolic dysfunction seen with tissue Doppler evidence of raised left atrial pressure. CONCLUSION: 1. Mildly enlarged left atrium, normal left ventricular size, mild concentric left ventricular hypertrophy, visually estimated ejection fraction 50% with segmental wall motion abnormality described above, grade 1 diastolic dysfunction seen with tissue Doppler evidence of raised left atrial pressure. 2. Mild mitral and tricuspid regurgitation 3. No significant pericardial effusion noted.
== END ==
PROVIDERS: Family Provider Family Medicine; PCP Nurse Practitioner; Visit Provider Internal Medicine
DX: R07.9 Chest pain, unspecified (principal); I25.10 Atherosclerotic heart disease of native coronary artery without angina pectoris; R06.00 Dyspnea, unspecified; R42 Dizziness and giddiness
CPT/HCPCS: 93306; 93880

== ENCOUNTER 2018-02-25 06:53 | Day surgery (SDC) | payer MEDICARE, MEDICAID, SELFPAY ==
[2018-02-25] VITALS (7 sets, daily range): BP systolic 90–104; BP diastolic 40–59; PULSE 63–75; RESP 16–20; TEMP 36.6; O2SAT 92–95; BMI 26.2
--- NOTE | 2018-02-25 | IR_ITS ---
CARDIAC CATHETERIZATION DATE OF CATHETERIZATION:02/25/18 Informed consent was obtained prior to the procedure. COMPLICATIONS: none ESTIMATED BLOOD LOSS: Less than 10 ml. TECHNIQUE: One percent lidocaine was used to anesthetize the right groin. The right femoral artery was unable to be accessed via the Seldinger technique. Procedure was then cancelled. The patient was transferred to the postop holding area in stable condition. IMPRESSION: 1. Right femoral artery was not able to be accessed via seldinger technique and procedure was cancelled. PLAN: 1. Follow up in office in 1 week. 2. Continue home medications 3. Tobacco Cessation
[2018-02-25 07:57] LABS: Basophils % 0.5 % (0.1-2.0); Eosinophils # 0.1 K/mm3 (0.0-0.4); Eosinophils % 0.7 % (0.1-12.0); Hematocrit 43.2 % (42.0-52.0); Hemoglobin 13.4 g/dL (14.1-18.0); Lymphocytes % 24.2 K/mm3 (10-50); Mean Corpuscular HGB Conc 31.1 g/dL (31.8-35.4); Mean Corpuscular Hemoglobin 28.1 pg (27.0-31.2); Mean Corpuscular Volume 90.4 fl (80-94); Mean Platelet Volume 8.8 fl (7.4-10.4); Monocytes # 0.7 K/mm3 (0.1-1.0); Monocytes % 8.9 % (1.7-9.3); Neutrophils # 5.4 K/mm3 (1.8-7.8); Neutrophils % 65.7 % (37.0-80.0); Platelet Count 246 K/mm3 (142-424); Red Blood Count 4.78 M/mm3 (4.60-6.20); White Blood Count 8.2 K/mm3 (4.8-10.8)
[2018-02-25 08:05] LABS: Anion Gap 12.9 mEq/L (5-15); Blood Urea Nitrogen 10 mg/dL (7-18); Calcium 8.7 mg/dL (8.5-10.1); Carbon Dioxide 24 mmol/L (21.0-32.0); Chloride 103 mmol/L (98-107); Creatinine Clearance Estimated 64 mL/min (0-300); Creatinine,Serum 0.77 mg/dL (0.70-1.30); Estimated Glomerular Filt Rate 102 ml/min (>60); GFR (African American) 124 ML/MIN (>60); Glucose 104 mg/dL (74-106); Potassium 3.9 mmoL/L (3.5-5.1); Sodium 136 mmol/L (136-145)
== END 2018-02-25 12:53 | disposition home or self-care (01) ==
LOC: CATHLAB 06:55
PROVIDERS: Family Provider Family Medicine; PCP Family Medicine; Visit Provider Internal Medicine
DX: I25.10 Atherosclerotic heart disease of native coronary artery without angina pectoris (principal); I65.23 Occlusion and stenosis of bilateral carotid arteries; Z79.899 Other long term (current) drug therapy; Z88.8 Allergy status to other drugs, medicaments and biological substances; Z89.511 Acquired absence of right leg below knee; Z89.512 Acquired absence of left leg below knee; R94.31 Abnormal electrocardiogram [ECG] [EKG]; Z87.891 Personal history of nicotine dependence; I25.84 Coronary atherosclerosis due to calcified coronary lesion
CPT/HCPCS: 80048; 85025; 93458; J1644

== ENCOUNTER → 2018-03-04 11:36 | Outpatient (CLI) | payer MEDICARE, MEDICAID, SELFPAY ==
[2018-03-04 12:24] LABS: Blood Urea Nitrogen 13 mg/dL (7-18); Creatinine,Serum 0.69 mg/dL (0.70-1.30); Estimated Glomerular Filt Rate 116 ml/min (>60); GFR (African American) 141 ML/MIN (>60)
--- NOTE | 2018-03-04 12:29 | CT_ITS ---
CT angio neck INDICATION: ITS.REASON: carotid artery disease ORDERING PHYSICIAN: Roberto Darnell MD PATIENT AGE: 62 years COMPARISON: August 24, 2016 CTA neck. December 2014CTA nec TECHNIQUE: Thin section helical CT acquisition following Bolus administration of 100 cc Isovue-370 followed x 40 mL normal saline.. 3-D volume rendering CTA processing as well as thin section analysis and review and sagittal and coronal MIPp images submitted to PACS. Staff apparently no longer performs vessel isolation nor detailed analysis of carotid stenosis.. All CT scans at the facility use one or more dose reduction, viz: automated exposure control; ma/kV adjustment per patient size (including targeted exams where dose is matched to indication; i.e. head); or iterative reconstruction technique. FINDINGS: Today's study is compared to the previous CTA neck from August 24, 2016 & RIGHT CAROTID SYSTEM: Right common carotid widely patent. Minimal calcified plaque at its origin reveals a minimal lung 10% stenosis. Not significant. Minimal calcified plaque anterior aspect distally. Right Carotid bifurcation: Prominent calcified plaque. This is best compared on the thin section axial images. We see the dense calcified plaque plaque flanking the carotid bifurcation and proximal internal carotid artery. Although the lumen does laterally narrowed to less than 2 mm it remains up to 7.5 mm AP where it enters the right ICAq Slight progressive stenosis estimated 70% % cross section stenosis. At the bifurcation and most important specifically at the origin right ICA . Distal to this point the mildly tortuous carotid is seen supplying the point [place] and carotid siphon. Minimal plaque at the carotid siphon. LEFT CAROTID SYSTEM Left common carotid artery with minimal plaque at its origin measures less than 10% stenosis. Left carotid bifurcation with dense calcified plaque again at the bifurcation and extending to the origin of left ICA. Calcification seen medially as well as laterally narrowing the lumen but it continues to measure at least 3.5 mm transverse. X 6.5 mm AP. Estimated 50 percent stenosis similar to previous studyP Left Vertebral Artery.: Occluded as seen previously . Right Vertebral Artery.: Moderately pronounced stenosis estimated 60-70% diameter stenosis at origin right vertebral artery noted but was actually better seen on the December 2014 study and appears fairly stable.. The left vertebral artery maintained with some scattered moderate calcified plaque at mid vertebral foramen which yield approximately 20% stenosis. The left vertebral been continues to the head supplying the modest caliber basilar artery. And appears to be a patent left posterior communicating artery which extends to supply the left posterior cerebral artery. The [place] with normal branching of the internal carotid arteries. Patent A1 segment bilaterally and MCA bilaterally. Minimal calcified plaque at carotid siphons bilaterally. At cervical spondylosis with. Multilevel degenerative disc changes again noted. Similar to previous exams. At the low-density 10 mm mm nodule at the left base of tongue is again noted and has not changed significantly. Actually measures fatty density on today's study and could be a fatty nodule along the anterior of the vallecula at base of tongue. Appears to be a benign feature & Unchanged since 2015 2 cm node left paratracheal region towards AP window on noted on the final images. This is been seen before but slightly more apparent. Patient may benefit from a CT chest or low-dose screening CT chest follow-up IMPRESSION 1. Dense calcified plaque at carotid bifurcations bilaterally. 2. Right carotid bifurcation with estimated 60% - up to 70
== END ==
PROVIDERS: Family Provider Family Medicine; PCP Family Medicine; Visit Provider Internal Medicine
DX: I65.23 Occlusion and stenosis of bilateral carotid arteries (principal)
CPT/HCPCS: 36415; 70498; 82565; 84520; Q9967

== ENCOUNTER 2018-08-27 11:00 | Outpatient (RCR) | payer MEDICARE, MEDICAID, SELFPAY ==
--- NOTE | 2018-06-21 14:09 | HMH.PTOPEV ---
PT Outpatient Evaluation Rehab PT Outpatient Evaluation Start: 06/21/18 13:45 Freq: Status: Active Protocol: Document 06/21/18 13:45 LENBALTAZAR (Rec: 06/21/18 14:08 FERNANDEZ [id number]) Electronically Signed By Juan Antonio Amador, PT 06/21/18 13:45 Outpatient Therapy Subjective History Subjective History Patient is a 63 year old male presenting to outpatient PT with reports of difficulty walking and bilateral stump pain L>R with ambulation. Patient is a bilateral above- the-knee amputee. He reports that his condition started because of blood clots in his legs that caused sores that got infected. He was initially a bilateral BKA starting in 2008. His most recent ampuation revision was performed in 2017. He most recently was fitted with new sockets for [id number] prosthetics. He returns for adjustment of sockets 07/01/18 . He was previously being seen in cardiac rehab as a result of CA. He reports that he is independent with transfers, ambulates with walker at home and performs HEP from home health PT. Chief Complaint Pain Stiff Gives out/Unstable Symptom Type Ache Symptoms Relieved By Rest/Positioning Symptoms Aggravated By Standing Bending/Stooping Physical Activity Walking Prior Functional Limitations Reaching Lifting Housework Driving Standing Squatting Recreation Activity Walking Stairs Balance Bending/Stooping Current Functional Limitations Reaching Lifting Housework Driving
--- NOTE | 2018-08-01 11:24 | HMH.RHREAS ---
Rehab Reassessment Rehab OP Re-assessment Start: 08/01/18 11:15 Freq: Status: Active Protocol: Document 08/01/18 11:15 FERNANDEZ (Rec: 08/01/18 11:24 FERNANDEZ [id number]) Electronically Signed By Juan Antonio Amador, PT 08/01/18 11:15 Rehab Re-assessment Subjective Subjective Pt reports 30% improvement since start of care. Objective Objective Notes Pt able to ambulate 150 ft without rest Pt able to stand 5' before requiring rest MMT: bilateral gross hip 4-/5 AROM hip ext to neutral Pain: 9/10 at worst over past week Tinnetti: 18 Assessment Progress Assessment Progressing as Expected Assessment Notes Pt has been seen for 8 treatment visits to date. He is demonstrating improved activity tolerance but persistent functional limitations with all standing/ ambulatory activity. Pt reports compliance with HEP. Patient goals met STG's 1 and 4 Goals Not Met STG 2 and 3, LTG's Revised Goals NA Plan Plan Continue with POC Frequency of Therapy 2x/week Duration of therapy 4 weeks Time and Billing Re-Eval Time 15 Re-Eval Billing Units 1 PHYSICIAN CERTIFICATION: I certify the specified therapy services for Nicho Crews are required, authorized, and reviewed every 30 days.
== END 2018-08-27 11:05 | disposition home or self-care (01) ==
LOC: PT 11:00
PROVIDERS: Visit Provider Nurse Practitioner
DX: Z89.611 Acquired absence of right leg above knee (principal); Z89.612 Acquired absence of left leg above knee; R26.2 Difficulty in walking, not elsewhere classified
CPT/HCPCS: 97110; 97112; 97116; 97140; 97163; 97164

== ENCOUNTER → 2018-10-18 14:12 | Outpatient (CLI) | payer MEDICARE, MEDICAID, SELFPAY ==
--- NOTE | 2018-10-18 14:15 | MR_ITS ---
MR head/brain wo con HISTORY: Right-sided headache with blurred vision ITS.REASON: NEW PERSISTENT DAILY HEADACHE ORDERING PHYSICIAN: Veda Sullivan PATIENT AGE: 63 years Comparison: 05/01/2012 TECHNIQUE: Standard multiplanar multiecho sequences are performed without contrast. FINDINGS: No midline shift, mass effect, intracranial hemorrhage, or hydrocephalus is evident. There are encephalomalacia changes of the right parietal lobe. There is diffuse generalized atrophy with periventricular ischemic gliotic change. The atrophy does appear slightly greater in the right parietal area compared to the left parietal area. There are mild encephalomalacic changes of the right frontal parietal junction. There is no evidence of acute infarction. The cerebellopontine angles, cerebellum, and brainstem are unremarkable. The pituitary, optic chiasm, and cranial cervical junction is unremarkable. There is reversal of upper cervical lordosis with degenerative disc disease and canal stenosis at C3-C4 and C4-C5. This is only imaged in the sagittal plane and is on the edge of the imaging field. There is some contour deformity/compression of the cord at C3-C4 and C4-C5. MRI the cervical spine may be of further value. There are bilateral mastoid effusions with opacification of both mastoid sinuses. IMPRESSION: 1. Generalized atrophy with chronic ischemic gliotic changes with areas of encephalomalacia in the right frontoparietal region and right posterior parietal region. No acute intracranial findings are evident. 2. Degenerative disc disease with canal stenosis and mild compression/flattening of the cord at C3-C4 and C4-C5. MRI of the cervical spine may be of further value. 3. Bilateral mastoid sinus disease
== END ==
PROVIDERS: PCP Family Medicine; Visit Provider Nurse Practitioner Family
DX: G44.52 New daily persistent headache (NDPH) (principal)
CPT/HCPCS: 70551

== ENCOUNTER → 2018-10-31 14:51 | Outpatient (CLI) | payer MEDICARE, MEDICAID, SELFPAY ==
--- NOTE | 2018-10-31 14:55 | MR_ITS ---
MR cervical spine wo con, MR 3-d myelogram/MRCP HISTORY: Headache X2WKS. ITS.REASON: CERVICAL STENOSIS ORDERING PHYSICIAN: Mary Khan PATIENT AGE: 63 years Comparison: None TECHNIQUE: Standard multiplanar multiecho sequences are performed without contrast. 3-D MIP and myelographic images are also rendered and reviewed FINDINGS: The craniocervical junction has an unremarkable appearance. There is straightening of the cervical lordosis with multilevel canal stenosis as described below. C2-C3: Mild degenerative disc disease. C3-C4: Degenerative disc disease with broad-based central and left paracentral and foraminal disc osteophyte complex with resultant canal stenosis of 7 mm causing mild impingement upon and flattening of the anterior left aspect of the cervical cord with moderate left lateral recess and foraminal narrowing. There is mild right lateral recess narrowing as well. C4-C5: Degenerative disc disease with bulging disc and uncovertebral disc osteophyte complexes. There is canal stenosis of 8 mm with moderate bilateral lateral recess and foraminal narrowing secondary to the uncovertebral hypertrophy/disc osteophyte complexes. There is mild flattening of the cord anteriorly at this level slightly greater toward the left. C5-C6: Degenerative disc disease with bulging disc with canal stenosis of 9 mm. No significant cord flattening. Bilateral lateral recess and mild bilateral foraminal narrowing is present slightly greater on the left. C6-C7: Degenerative disc disease with bulging disc. There is a small left paracentral and foraminal disc protrusion. There is borderline narrowing of the canal at 10 mm with moderate left-sided foraminal narrowing. C7-T1: Unremarkable. No extruded herniated disc are evident IMPRESSION: 1. Multilevel cervical spondylosis as described above with straightening of the cervical lordosis and multilevel degenerative disc disease with canal stenosis. No extruded herniated disc. 2. C3-C4: Degenerative disc disease with broad-based central and left paracentral and foraminal disc osteophyte complex with resultant canal stenosis of 7 mm causing mild impingement upon and flattening of the anterior left aspect of the cervical cord with moderate left lateral recess and foraminal narrowing. There is mild right lateral recess narrowing as well. 3. C4-C5: Degenerative disc disease with bulging disc and uncovertebral disc osteophyte complexes. There is canal stenosis of 8 mm with moderate bilateral lateral recess and foraminal narrowing secondary to the uncovertebral hypertrophy/disc osteophyte complexes. There is mild flattening of the cord anteriorly at this level slightly greater toward the left. 4. C5-C6: Degenerative disc disease with bulging disc with canal stenosis of 9 mm. No significant cord flattening. Bilateral lateral recess and mild bilateral foraminal narrowing is present slightly greater on the left. 5. C6-C7: Degenerative disc disease with bulging disc. There is a small left paracentral and foraminal disc protrusion. There is borderline narrowing of the canal at 10 mm with moderate left-sided foraminal narrowing.
== END ==
PROVIDERS: PCP Nurse Practitioner; Visit Provider Nurse Practitioner
DX: M48.02 Spinal stenosis, cervical region (principal); M50.30 Other cervical disc degeneration, unspecified cervical region; G95.20 Unspecified cord compression
CPT/HCPCS: 72141; 76376

== ENCOUNTER 2018-11-26 09:00 | Outpatient (RCR) | payer MEDICARE, MEDICAID, SELFPAY ==
--- NOTE | 2018-11-12 14:08 | HMH.PTOPEV ---
PT Outpatient Evaluation Rehab PT Outpatient Evaluation Start: 11/12/18 13:21 Freq: Status: Active Protocol: Document 11/12/18 13:48 SORINKIT (Rec: 11/12/18 14:08 BLAKE [id number]) Electronically Signed By Kalpesh Figueroa, PT 11/12/18 13:48 Outpatient Therapy Subjective History Subjective History This is the initial Physical Therapy evaluation for Nicho Crews. Pt is a 63 y/o male referred toPT for c/o R side neck and JERRY pain. Pt reports JERRY's began ~ 2 years ago. Pt reports multiple TIA's in last 10 years and IN last year. Pt reprots MRI of head and neck showing spinal stenosis and spondylosis Chief Complaint Pain Stiff Symptom Type Ache Throb Sharp Dull Stabbing Symptoms Relieved By OTC Meds Prior Functional Limitations None Current Functional Limitations Lifting Housework Sleeping Recreation Activity Symptom Description Intermittent Level of pain today (0-10) 0 Pain scale - at its best (0-10) 0 Pain scale - at its worst (0-10) 4 Cervical Eval Palpation Cervical Muscles R Cervical Paraspinal L Cervical Paraspinal R Suboccipital L Suboccipital Cervical/Thoracic Palpation Findings Muscle Guarding Posture Head/C-Spine Posture Sitting Position C-Spine Flattened Passive Joint Mobility Cervical PIVM Dec: R C2/3 L C2/3 R C3/4 L C3/4 R C4/5 L C4/5 R C5/6 L C5/6 R C6/7 L C6/7 R C7/T1 L C7/T1 AROM Cervical Spine Extension Active Range of 35 Motion (degrees) Cervical Spine Flexion Active Range of 60 Motion (degrees) Cervical Spine Right Lateral Flexion 30 Active Range of Motion (degrees) Cervical Spine Left Lateral Flexion 30 Active Range of Motion (degrees) MMT Bilateral
== END 2018-11-26 09:05 | disposition home or self-care (01) ==
LOC: PT 09:00
PROVIDERS: Visit Provider Nurse Practitioner
DX: M54.2 Cervicalgia (principal); G45.9 Transient cerebral ischemic attack, unspecified; G44.52 New daily persistent headache (NDPH)
CPT/HCPCS: 97010; 97110; 97163

== ENCOUNTER 2019-01-07 11:00 | Outpatient (RCR) | payer MEDICARE, MEDICAID, SELFPAY ==
--- NOTE | 2018-12-03 14:30 | HMH.PTOPEV ---
PT Outpatient Evaluation Rehab PT Outpatient Evaluation Start: 12/03/18 14:17 Freq: Status: Active Protocol: Document 12/03/18 14:17 RIGOBERTO (Rec: 12/03/18 14:29 RIGOBERTO [id number]) Electronically Signed By Romel Winter, PT 12/03/18 14:17 Outpatient Therapy Subjective History Subjective History Pt reports B AKA stump pain (L >R) d/t decreased frequency of prosthesis wear. Pt reports I just quit using them ( prostheses) because it was winter, and I just don't go out when the weather is bad'. Pt reports during skilled P.T. ~4 months ago, 'I was up to walking 175'. Pt also reports poor flexibility in B hips, and next follow-up w/ [facility] in December. PMH: B AKA 2008 *pt did not bring prostheses this visit Chief Complaint Pain Stiff Weakness Symptom Type Ache Sharp Dull Symptoms Relieved By Nothing Symptoms Aggravated By Standing Walking Prior Functional Limitations Standing Walking Current Functional Limitations Standing Walking Symptom Description Constant but Variable Level of pain today (0-10) 5 Pain scale - at its best (0-10) 4 Pain scale - at its worst (0-10) 10 Hip/Knee Eval Assistive Device Assistive Devices Wheelchair Palpation Tenderness bilateral Knee Palpation Overall Comment 2-3/4 distal stump Hip Palpation Findings Tenderness MMT Hip Flexion Strength Grade 4 Good Hip Abduction Strength Grade 4 Good Hip Adduction Strength Grade 4 Good Hip Extension Strength Grade 4 Good ROM Hip Flexion w/Knee Flexed Active Range 0-90 of Motion (degrees) Hip Abduction Active Range of Motion ( 0-45 degrees) Hip Extension Active Range of Motion ( +10 degrees) Hip Extension Passive Range of Motion ( +5 degrees) Outpatient Therapy Assessment Impairments Problems/Impairmments Palpation Tenderness Impaired Range of Motion Impaired Strength Impaired Gait Pattern
== END 2019-01-07 11:05 | disposition home or self-care (01) ==
LOC: PT 11:00
PROVIDERS: Visit Provider Nurse Practitioner
DX: R26.2 Difficulty in walking, not elsewhere classified (principal)
CPT/HCPCS: 97110; 97112; 97116; 97163

== ENCOUNTER → 2019-03-11 09:00 | Outpatient (CLI) | payer MEDICARE, MEDICAID, SELFPAY ==
--- NOTE | 2019-03-11 09:03 | CI_ITS ---
Cerebrovascular Exam Indications: Follow-up carotid 433.10. IMPRESSIONS 1. 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 No change from the study of 08-Feb-2018. 2. Study suggests 50-69% stenosis involving the right internal carotid artery and the left internal carotid artery. No change from the study of 11-Mar-2019. 3. Study suggests >60% stenosis involving the right external carotid artery and the left external carotid artery. Carotid duplex study. Complete study and Doppler flow study including spectral analysis, color and guzman scale imaging. Height: Height: 175.3cm. Height: 69in. Weight: Weight: 59kg. Weight: 129.7lb. Body mass index: BMI: 19.2kg/m^2. Body surface area: BSA: 1.69m^2. Location: Vascular laboratory. Patient status: Outpatient. Tables: Arterial flow: + +--------+--------+ Location V sys V ed + +--------+--------+ Right CCA - proximal 49.8cm/s 12.7cm/s + +--------+--------+ Right CCA - distal 58.5cm/s 15.3cm/s + +--------+--------+ Right ECA 174cm/s -------- + +--------+--------+ Right ICA - proximal 161cm/s 49.8cm/s + +--------+--------+ Right ICA - mid 70cm/s 32.5cm/s + +--------+--------+ Right ICA - distal 68.4cm/s 23.7cm/s + +--------+--------+ Left CCA - proximal 81.7cm/s 19.6cm/s + +--------+--------+ Left CCA - distal 90.8cm/s 23cm/s + +--------+--------+ Left ECA 209cm/s -------- + +--------+--------+ Left ICA - proximal 131cm/s 31.4cm/s + +--------+--------+ Left ICA - mid 117cm/s 50.3cm/s + +--------+--------+ Left ICA - distal 66.8cm/s 22.8cm/s + +--------+--------+ Left vertebral 69.8cm/s -------- + +--------+--------+ Velocity ratios: + + + + + + Right, V sys Right, V ed Left, V sys Left, V ed + + + + + + Max ICA/dist CCA 2.75 3.25 1.44 2.19 + + + + + + (Report amended ) Electronically signed by: Lucas Do [id number]
== END ==
PROVIDERS: PCP Family Medicine; Visit Provider Internal Medicine
DX: I65.23 Occlusion and stenosis of bilateral carotid arteries (principal)
CPT/HCPCS: 93880

== ENCOUNTER → 2019-04-29 15:15 | Outpatient (CLI) | payer MEDICARE, MEDICAID, SELFPAY ==
--- NOTE | 2019-04-29 15:17 | CT_ITS ---
PROCEDURE: CT LUNG SCREENING CLINICAL INDICATION: CURRENT TOBACOO USE Greater than 30 pack-year smoking history asymptomatic for lung cancer COMPARISON: No exams were available for comparison TECHNIQUE: The exam was performed on a GE Light Speed [address] scanner using 2.90 mGy CTDI. A low dose helical CT CHEST was performed on a multi-detector scanner. All CT scans at the facility use one or more dose reduction, viz: automated exposure control, ma/kV adjustment per patient size (including targeted exams where dose is matched to indication, i.e. head), or iterative reconstruction technique. The LDCT was performed in a facility that meets the criteria for the screening program. Data regarding this exam was submitted to ACR which is an approved registry. The order for this exam indicates that it came as a result of a lung cancer screening counseling shard decision-making visit that included all the elements required of such a visit including smoking cessation. The radiologist interpreting this exam meets the CMS criteria for the LDCT lung cancer screening program. The exam is reported using the Lung-RADS classification scale and reported to the ACR registry. NOTE: This study was performed for the specific purposes of lung cancer screening and is not an alternative to diagnostic chest CT. RADIATION DOSE: CTDI vol(CT dose Index-volume) = 2.90mG DLP (Dose Length Product) = 98.47 mGcm FINDINGS: COPD, centrilobular emphysema. Calcified granuloma left upper lobe. Coronary artery calcification. No suspicious pulmonary nodules. Increased interstitial markings are present in the lung bases. Nonspecific sub cm isodense to the left hepatic lobe anteriorly. Mild wedging is present involving the L1 vertebral body which may be old OTHER FINDINGS: No other pertinent findings evident. IMPRESSION: Lung rads category 2 benign Recommend 12 month LDCT follow-up Other findings include COPD, centrilobular emphysema, and severe coronary artery calcifications consistent with coronary artery disease Dictated by: Mauricio Sellers MD 05/04/2019 07:52 Electronically signed by Mauricio Sellers MD in [place] 05/04/2019 07:52
== END ==
PROVIDERS: PCP Family Medicine; Visit Provider Family Medicine
DX: Z12.2 Encounter for screening for malignant neoplasm of respiratory organs (principal); Z87.891 Personal history of nicotine dependence

== ENCOUNTER → 2020-03-02 14:29 | Outpatient (CLI) | payer MEDICARE, MEDICAID, SELFPAY ==
[2020-03-02 15:40] LABS: Alanine Aminotransferase 12 U/L (12-78); Alkaline Phosphatase 85 U/L (38-126); Aspartate Amino Transferase 21 U/L (17-59); Bilirubin,Direct 0.2 mg/dl (0.0-0.4); Bilirubin,Indirect 0.2 mg/dL (0.0-0.9); Bilirubin,Total 0.4 mg/dl (0.2-1.3); Bilirubin,Unconjugated 0.3 mg/dL (0.0-1.1)
[2020-03-02 15:41] LABS: Albumin Level 3.7 g/dl (3.5-5.0); Chol/HDL Ratio 3.6 (1-3.5); Cholesterol 135 mg/dl (140-200); HDL Cholesterol 37 mg/dl (40-60); Total Protein,Serum 7.3 g/dl (6.3-8.2); Triglycerides 74 mg/dl (30-150); VLDL Cholesterol 15 mg/dL (0-40)
[2020-03-02 15:52] LABS: Direct LDL Cholesterol 85.72 mg/dL (100-129)
== END ==
PROVIDERS: Visit Provider Urology
DX: E78.5 Hyperlipidemia, unspecified (principal); I10 Essential (primary) hypertension; I25.10 Atherosclerotic heart disease of native coronary artery without angina pectoris; I65.29 Occlusion and stenosis of unspecified carotid artery; I73.9 Peripheral vascular disease, unspecified; R94.31 Abnormal electrocardiogram [ECG] [EKG]; Z89.511 Acquired absence of right leg below knee; Z89.512 Acquired absence of left leg below knee
CPT/HCPCS: 36415; 80061; 80076

== ENCOUNTER → 2020-03-18 08:42 | Outpatient (CLI) | payer MEDICARE, SELFPAY ==
--- NOTE | 2020-03-18 08:44 | CA_ITS ---
APPROVED REPORT EXAM: Comprehensive 2D, Doppler, and color-flow Echocardiogram Loss Prevention Leader: Helen Davey RT(R) Ht: 4 ft 11 in Wt: 115lbs BSA: 1.46 BP: 136/73 mmHg Indications: ex smoker, HTN, FRITZ, hyperlipidemia, AFIB, BKA bilateral, JEFFRY, abn EKG M-Mode Dimensions RVDd 1.78 cm (0.9-2.6) LVDd 4.73 cm (3.5-5.7) LVDs 3.89 cm (3.5-5.7) IVSd 1.06 cm (0.6-1.1) PWd 1.17 cm (0.6-1.1) EF (Teich) 37.00% FS 17.80% EDV (Teich) 103.90 mL ESV (Teich) 65.50 mL LV Diastology E/A Ratio 0.86 Mitral Valve MV A Velocity 120.00 (40-130 cm/s) Left Ventricle Left atrium is mildly enlarged, left ventricle is normal size, mild concentric left ventricular hypertrophy, visually estimated ejection fraction 50%, there is moderate inferior basal wall hypokinesis. Diastolic parameters are inconclusive. Right Ventricle Right atrium and right ventricular normal size and contractility. Aortic Valve Aortic valve is minimally thickened and fibrosed, there is no aortic stenosis or aortic insufficiency. Mitral Valve Mitral valve leaflets are minimally thickened, there is no mitral stenosis, there is no mitral regurgitation. Tricuspid Valve Tricuspid valve is grossly normal, there is mild tricuspid regurgitation, tricuspid regurgitation jet velocity is inadequate for calculation of the right ventricular systolic pressure. Pulmonic Valve Pulmonic valve is poorly visualized. Great Vessels Aortic root is normal size. Pericardium No significant pericardial effusion noted. Conclusion 1. Mildly enlarged left atrium, normal left ventricular size, mild concentric left ventricular hypertrophy, visually estimated ejection fraction 50% with segmental wall motion abnormality described above, diastolic parameters are inconclusive. 2. Mild mitral and tricuspid regurgitation. 3. No significant pericardial effusion noted. Electronically signed by : Wes Kapadia, 03/18/2020 15:47:12
--- NOTE | 2020-03-18 08:44 | CA_ITS ---
APPROVED REPORT Funeral Limousine Driver: JOHN Laterality: Bilateral Study Quality: Good Indications: tammy Doppler Spectral Velocity Analysis dICA (R) 72.20/22.50 cm/s dICA (L) 74.50/22.70 cm/s Juanis (R) 68.10/27.50 cm/s Juanis (L) 146.80/36.70 cm/s pICA (R) 106.00/19.20 cm/s pICA (L) 85.40/24.10 cm/s dCCA (R) 96.70/24.80 cm/s dCCA (L) 90.50/22.50 cm/s pCCA (R) 140.10/30.30 cm/s pCCA (L) 85.80/18.30 cm/s ICA/CCA 1.10 Vert (L) 87.90/20.60 cm/s ICA/CCA 1.60 Findings Duplex evaluation demonstrates stenosis of the right proximal internal carotid artery in the range of 20-49% Duplex evaluation demonstrates stenosis of the left proximal internal carotid artery in the range of 50-69%(upper end of scale) with PSV =140 cm/sec, EDV <100 cm/sec, and IC/CC Ratio <4.0. with PSV =140 cm/sec, EDV <100 cm/sec, and IC/CC Ratio <4.0. Right vertebral occlusion as on prior exam of 03/11/19. Conclusion Duplex evaluation demonstrates stenosis of the right proximal internal carotid artery in the range of 20-49% Duplex evaluation demonstrates stenosis of the left proximal internal carotid artery in the range of 50-69%(upper end of scale) with PSV =140 cm/sec, EDV <100 cm/sec, and IC/CC Ratio <4.0. with PSV =140 cm/sec, EDV <100 cm/sec, and IC/CC Ratio <4.0. Right vertebral occlusion as on prior exam of 03/11/19. Electronically signed by : Mauricio Sellers MD 03/24/2020 15:44:15
== END ==
LOC: RT 08:44
PROVIDERS: PCP Family Medicine; Visit Provider Urology
DX: E78.5 Hyperlipidemia, unspecified (principal); I10 Essential (primary) hypertension; I25.10 Atherosclerotic heart disease of native coronary artery without angina pectoris; I73.9 Peripheral vascular disease, unspecified; R94.31 Abnormal electrocardiogram [ECG] [EKG]; Z89.511 Acquired absence of right leg below knee; Z89.512 Acquired absence of left leg below knee; I65.23 Occlusion and stenosis of bilateral carotid arteries
CPT/HCPCS: 93306; 93880

== ENCOUNTER → 2020-07-26 11:41 | Outpatient (CLI) | payer MEDICARE, MEDICAID, SELFPAY ==
--- NOTE | 2020-07-26 11:48 | XR_ITS ---
PROCEDURE: XR CHEST PORTABLE CLINICAL HISTORY: COVID OUTPATIENT Cough COMPARISON: CR [id number] XR chest portable from 11/11/[address] LUNG SCREENING from 04/29/2019 FINDINGS: There is mild cardiomegaly without failure. Scarring is present in the left apex. COPD changes. There is mild prominence of the interstitium which may be related to COPD and smoking related lung disease. No definite lobar consolidation or collapse. There does appear to be trace bilateral effusions. Minimal atelectatic changes or fibrosis noted in the left lower lobe. IMPRESSION: Cardiomegaly with chronic changes with trace bilateral effusions. No pneumonia identified Dictated by: Mauricio Sellers MD 07/26/2020 12:20 Mauricio Sellers MD in [place] 07/26/2020 12:20
[2020-07-27 12:58] LABS: Covid-19 Nasal PCR Sendout Lex Not Detected
== END ==
PROVIDERS: PCP Family Medicine; Visit Provider Nurse Practitioner
DX: Z03.818 Encounter for observation for suspected exposure to other biological agents ruled out (principal)
CPT/HCPCS: 71045; U0004

== ENCOUNTER → 2020-09-29 08:40 | Outpatient (CLI) | payer MEDICARE, MEDICAID, SELFPAY ==
--- NOTE | 2020-09-29 08:44 | CA_ITS ---
APPROVED REPORT Webmethods Architect: Dannielle Armstrong RVT Laterality: Bilateral Study Quality: Good Indications: bilateral carotid artery stenosis Risk Factors Hypertension: Smoking Doppler Spectral Velocity Analysis ECA (R) 71.10/11.10 cm/s ECA (L) 355.00/59.90 cm/s dICA (R) 67.70/24.00 cm/s dICA (L) 97.30/30.80 cm/s Juanis (R) 67.70/24.00 cm/s Juanis (L) 153.10/30.80 cm/s pICA (R) 57.40/14.60 cm/s pICA (L) 157.60/157.60 cm/s dCCA (R) 41.70/12.80 cm/s pCCA (L) 89.30/21.20 cm/s pCCA (R) 67.40/10.70 cm/s Vert (L) 48.70/16.70 cm/s ICA/CCA 1.62 ICA/CCA 1.77 Findings Study suggests 20-49% stenosis of the right internal cartoid artery. Shadowing plaque seen in the proximal IVAN. Study suggests 50-69% stenosis of the left internal cartoid artery. Antegrade flow seen in the left vertebral artery. No color flow or doppler obained in the right vertebral artery,probable occulsion. Conclusion Study suggests 20-49% stenosis of the right internal cartoid artery. Shadowing plaque seen in the proximal IVAN. Study suggests 50-69% stenosis of the left internal cartoid artery. Antegrade flow seen in the left vertebral artery. No color flow or doppler obained in the right vertebral artery,probable occulsion. Electronically signed by : Mauricio Sellers MD 09/29/2020 14:46:37
== END ==
PROVIDERS: PCP Family Medicine; Visit Provider Urology
DX: I65.23 Occlusion and stenosis of bilateral carotid arteries (principal)
CPT/HCPCS: 93880

== ENCOUNTER → 2020-11-25 10:14 | Outpatient (CLI) | payer MEDICARE, MEDICAID, SELFPAY ==
--- NOTE | 2020-11-25 10:18 | US_ITS ---
APPROVED REPORT Laterality: Bilateral Mail Handler Assistant: Dannielle Armstrong RVT Indications Current Smoker CAD Symptoms Claudication : Risk Factors PAD Hypertension: Hyperlipidemia TIA/CVA History Cardiac Disease Smoking: CAD Pressures Brachial 125.0mmHg Radial 149.0mmHg Ulnar 76.0mmHg Left Brachial 123.0mmHg Radial 154.0mmHg Ulnar 158.0mmHg Pressures/Indices Right Left INDEX INDEX 125.0mmHg Brachial 123.0mmHg Findings RT WBI:1.19 LT WBI:1.26 RT FBI:0.88 LT FBI:1.03 NORMAL PULSES BILATERL NORMAL WAVEFORMS BILATERAL Conclusion RT WBI:1.19 LT WBI:1.26 RT FBI:0.88 LT FBI:1.03 NORMAL PULSES BILATERL NORMAL WAVEFORMS BILATERAL Electronically signed by : Mauricio Sellers MD 11/25/2020 15:00:25
== END ==
PROVIDERS: PCP Family Medicine; Visit Provider Nurse Practitioner Family
DX: I73.9 Peripheral vascular disease, unspecified (principal)
CPT/HCPCS: 93923

== ENCOUNTER → 2021-01-25 12:52 | Outpatient (CLI) | payer MEDICARE, MEDICAID, SELFPAY ==
--- NOTE | 2021-01-25 12:52 | CT_ITS ---
PROCEDURE: CT ANGIO NECK CLINICAL HISTORY: Visual disturbance, TIA COMPARISON: CT CT ANGIO NECK from 01/25/[address] ANGIO HEAD from 01/25/2021 TECHNIQUE: 100 mL Isovue 370 Axial images obtained with sagittal and coronal reformats. All CT scans at the facility use one or more dose reduction, viz: automated exposure control, ma/kV adjustment per patient size (including targeted exams where dose is matched to indication, i.e. head), or iterative reconstruction technique. FINDINGS: Exam was repeated on 01/26/2021 due to lack of adequate arterial contrast on the previous exam. CTA neck: Calcific plaque is present within the aortic arch and proximal aspect of the great vessels with no significant stenosis. There is fibrocalcific plaque involving the mid aspect of the right common carotid artery with approximately 30 percent smooth segment stenosis. In the mid aspect of the right common carotid there is eccentric calcific plaque with less than 25 percent stenosis. In the right carotid bulb and proximal ICA there is dense calcific plaque resulting in approximately 60 percent stenosis of the proximal ICA. There is occlusion of the proximal aspect of the external carotid artery on the right with reconstitution just distal to the area of occlusion. The upper cervical portion of the right ICA has an unremarkable appearance. Mild atheromatous changes are present in the left common carotid artery with no significant stenosis. There is dense calcific plaque at the left bulb and proximal ICA with approximate 50 percent stenosis in the proximal ICA at the carotid bulb. Just cephalad to this region there is an additional area of stenosis of approximately 30 percent. There is high-grade stenosis of the proximal left external carotid artery. There is occlusion of the right vertebral artery proximally with calcific plaque present at the expected origin of the right vertebral. Scattered atheromatous changes involve the left vertebral with less than 50 percent stenosis at the C4 and C5 level. There is patchy density in the right apex posteriorly and may be due to small area of infiltrate or postinflammatory scarring. Scattered small nodes are present in the mediastinum. Mixed soft tissue density left parapharyngeal region which may be due to nondistention. IMPRESSION: Diffuse atherosclerotic changes with multiple areas of stenoses including 60 percent in the right carotid bulb/proximal ICA, 50 percent proximal left ICA, 30 percent proximal to mid left ICA with occlusion of the right external carotid artery and severe stenosis of the proximal aspect of the left external carotid. 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 Dictated by: Mauricio Sellers MD 01/27/2021 13:47 Mauricio Sellers MD in [place] 01/27/2021 13:47
--- NOTE | 2021-01-25 13:18 | CT_ITS ---
PROCEDURE INFORMATION: Exam: CT Angiography Head With Contrast, Arteriography Exam date and time: 01/25/2021 1:18 PM Age: 65 years old Clinical indication: Other: HX TIA; Seeing stars in eyes x 1 month TECHNIQUE: Imaging protocol: Computed tomography angiography of the head with contrast. Exam focused on the arteries. 3D rendering (Not supervised by radiologist): MIP and/or 3D reconstructed images were created by the technologist. Radiation optimization: All CT scans at this facility use at least one of these dose optimization techniques: automated exposure control; mA and/or kV adjustment per patient size (includes targeted exams where dose is matched to clinical indication); or iterative reconstruction. Contrast material: ISO 370; Contrast volume: 100 ml; Contrast route: INTRAVENOUS (IV); COMPARISON: BRAIN WO MR head/brain wo con 10/18/2018 2:49:05 PM FINDINGS: ANTERIOR CIRCULATION: Right internal carotid artery: Mural calcification of the cavernous portion. The artery is narrowed by 70-80%. Otherwise, unremarkable. Right middle cerebral artery: Unremarkable. No occlusion or significant stenosis. No aneurysm. Right anterior cerebral artery: Unremarkable. No occlusion or significant stenosis. No aneurysm. Left internal carotid artery: Mural calcification of the cavernous portion. The artery is narrowed by 70-80%. Otherwise, unremarkable. Left middle cerebral artery: Unremarkable. No occlusion or significant stenosis. No aneurysm. Left anterior cerebral artery: Unremarkable. No occlusion or significant stenosis. No aneurysm. POSTERIOR CIRCULATION: Right vertebral artery: Unremarkable. No occlusion or significant stenosis. No aneurysm. Left vertebral artery: Unremarkable. No occlusion or significant stenosis. No aneurysm. Basilar artery: Unremarkable. No occlusion or significant stenosis. No aneurysm. Right posterior cerebral artery: Unremarkable. No occlusion or significant stenosis. No aneurysm. Left posterior cerebral artery: Unremarkable. No occlusion or significant stenosis. No aneurysm. Brain: Again noted is encephalomalacia in the high right parietal lobe. Generalized cerebral atrophy. Chronic microvascular ischemia. No acute intracranial changes. Cerebral ventricles: Mild prominent secondary to volume loss. No acute changes. Bones/joints: Unremarkable. No acute fracture. Soft tissues: Unremarkable. IMPRESSION: 1. Mural calcification of the cavernous portions of both internal carotid arteries as described. 2. Otherwise, unremarkable intracranial vasculature.
--- NOTE | 2021-01-25 13:26 | CT_ITS ---
PROCEDURE: CT HEAD/BRAIN WO CON CLINICAL INDICATION: TIA Visual disturbance COMPARISON: MR BRAINWO MR head/brain wo con from 10/18/2018 TECHNIQUE: Axial images obtained. All CT scans at the facility use one or more dose reduction, viz: automated exposure control, ma/kV adjustment per patient size (including targeted exams where dose is matched to indication, i.e. head), or iterative reconstruction technique. FINDINGS: No midline shift, mass effect, intracranial hemorrhage, hydrocephalus, or extra-axial fluid collection is evident. Encephalomalacia changes are present in the right parietal lobe. There is generalized atrophy with hypoattenuation of the periventricular white matter consistent with microangiopathic changes.. The calvarium has an unremarkable appearance. Minimal amount fluid noted in the right mastoid sinus. No sinus air-fluid level. IMPRESSION: There is generalized atrophy with hypoattenuation of the periventricular white matter consistent with microangiopathic changes.. Encephalomalacia change right parietal lobe. No acute intracranial findings Dictated by: Mauricio Sellers MD 01/25/2021 15:17 Mauricio Sellers MD in [place] 01/25/2021 15:17
[2021-01-25 13:37] LABS: Chloride 105 mmol/L (98-107); Sodium 133 mmol/L (136-145)
[2021-01-25 13:39] LABS: Alanine Aminotransferase 16 U/L (12-78); Aspartate Amino Transferase 26 U/L (17-59); Blood Urea Nitrogen 11 mg/dl (9-20); Estimated Glomerular Filt Rate 113 ml/min (>60); GFR (African American) 137 ML/MIN (>60)
[2021-01-25 13:40] LABS: Albumin Level 4.1 g/dl (3.5-5.0); Albumin/Globulin Ratio 1.1 (1.1-1.8); Alkaline Phosphatase 78 U/L (38-126); Bilirubin,Total 0.6 mg/dl (0.2-1.3); Calcium 8.9 mg/dl (8.4-10.2); Carbon Dioxide 21 mmol/L (22.0-30.0); Globulin 3.8 g/dL (1.3-3.2); Glucose 100 mg/dl (74-100); Total Protein,Serum 7.9 g/dl (6.3-8.2)
== END ==
PROVIDERS: PCP Family Medicine; Visit Provider Specialist
DX: H53.411 Scotoma involving central area, right eye (principal); I10 Essential (primary) hypertension; I25.10 Atherosclerotic heart disease of native coronary artery without angina pectoris; I48.0 Paroxysmal atrial fibrillation; I65.01 Occlusion and stenosis of right vertebral artery; I65.23 Occlusion and stenosis of bilateral carotid arteries; N28.9 Disorder of kidney and ureter, unspecified; Z89.511 Acquired absence of right leg below knee; Z89.512 Acquired absence of left leg below knee
CPT/HCPCS: 36415; 70450; 70496; 70498; 80053; Q9967

== ENCOUNTER → 2021-01-26 15:45 | Outpatient (CLI) | payer MEDICARE, MEDICAID, SELFPAY ==
--- NOTE | 2021-01-26 15:49 | CT_ITS ---
PROCEDURE: CT ANGIO NECK CLINICAL HISTORY: Visual disturbance, TIA COMPARISON: CT CT ANGIO NECK from 01/25/[address] ANGIO HEAD from 01/25/2021 TECHNIQUE: 100 mL Isovue 370 Axial images obtained with sagittal and coronal reformats. All CT scans at the facility use one or more dose reduction, viz: automated exposure control, ma/kV adjustment per patient size (including targeted exams where dose is matched to indication, i.e. head), or iterative reconstruction technique. FINDINGS: Exam was repeated on 01/26/2021 due to lack of adequate arterial contrast on the previous exam. CTA neck: Calcific plaque is present within the aortic arch and proximal aspect of the great vessels with no significant stenosis. There is fibrocalcific plaque involving the mid aspect of the right common carotid artery with approximately 30 percent smooth segment stenosis. In the mid aspect of the right common carotid there is eccentric calcific plaque with less than 25 percent stenosis. In the right carotid bulb and proximal ICA there is dense calcific plaque resulting in approximately 60 percent stenosis of the proximal ICA. There is occlusion of the proximal aspect of the external carotid artery on the right with reconstitution just distal to the area of occlusion. The upper cervical portion of the right ICA has an unremarkable appearance. Mild atheromatous changes are present in the left common carotid artery with no significant stenosis. There is dense calcific plaque at the left bulb and proximal ICA with approximate 50 percent stenosis in the proximal ICA at the carotid bulb. Just cephalad to this region there is an additional area of stenosis of approximately 30 percent. There is high-grade stenosis of the proximal left external carotid artery. There is occlusion of the right vertebral artery proximally with calcific plaque present at the expected origin of the right vertebral. Scattered atheromatous changes involve the left vertebral with less than 50 percent stenosis at the C4 and C5 level. There is patchy density in the right apex posteriorly and may be due to small area of infiltrate or postinflammatory scarring. Scattered small nodes are present in the mediastinum. Mixed soft tissue density left parapharyngeal region which may be due to nondistention. IMPRESSION: Diffuse atherosclerotic changes with multiple areas of stenoses including 60 percent in the right carotid bulb/proximal ICA, 50 percent proximal left ICA, 30 percent proximal to mid left ICA with occlusion of the right external carotid artery and severe stenosis of the proximal aspect of the left external carotid. 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 Dictated by: Mauricio Sellers MD 01/27/2021 10:07 Mauricio Sellers MD in [facility] 01/27/2021 10:07
== END ==
PROVIDERS: PCP Family Medicine; Visit Provider Specialist
DX: G45.9 Transient cerebral ischemic attack, unspecified (principal)

== ENCOUNTER 2021-06-12 12:17 | Emergency (ER) | payer MEDICARE, MEDICAID, SELFPAY ==
[2021-06-12 12:19] VITALS: BP 143/72; PULSE 78; RESP 18; TEMP 36.7; O2SAT 99; BMI 64.5
--- NOTE | 2021-06-12 12:43 | CT_ITS ---
PROCEDURE INFORMATION: Exam: CT Head Without Contrast Exam date and time: 06/12/2021 12:43 PM Age: 65 years old Clinical indication: Injury or trauma; Fall; Blunt trauma (contusions or hematomas); Consciousness not specified; Injury date: 06/11/21; Patient HX: Previous stroke //patient is a double leg amputation-- fell out of his wheelchair has spine pain; Additional info: Fell out of w/c TECHNIQUE: Imaging protocol: Computed tomography of the head without contrast. 3D rendering (Not supervised by radiologist): MIP and/or 3D reconstructed images were created by the technologist. Radiation optimization: All CT scans at this facility use at least one of these dose optimization techniques: automated exposure control; mA and/or kV adjustment per patient size (includes targeted exams where dose is matched to clinical indication); or iterative reconstruction. COMPARISON: CT HEAD/BRAIN WO CON 01/25/2021 1:51 PM FINDINGS: Brain: Prominent sulci. Patchy hypodensity of the cerebral white matter which are nonspecific but likely secondary to microangiopathic changes. Right frontal and parietal encephalomalacia. Cerebral ventricles: The ventricles are prominent secondary to diffuse volume loss/atrophy. Paranasal sinuses: Visualized sinuses are unremarkable. No fluid levels. Mastoid air cells: Visualized mastoid air cells are well aerated. Bones/joints: Unremarkable. No acute fracture. Soft tissues: Unremarkable. IMPRESSION: Chronic age related changes and remote right frontal and parietal encephalomalacia but no evidence of acute intracranial pathology.
--- NOTE | 2021-06-12 13:32 | PC.NURSE ---
GONE TO CT
--- NOTE | 2021-06-12 13:35 | CT_ITS ---
PROCEDURE INFORMATION: Exam: CT Cervical Spine Without Contrast Exam date and time: 06/12/2021 1:35 PM Age: 65 years old Clinical indication: Injury or trauma; Fall; Blunt trauma; Injury date: 06/11/21; Injury details: Patient is a double leg amputation-- fell out of his wheelchair has spine pain TECHNIQUE: Imaging protocol: Computed tomography images of the cervical spine without contrast. Radiation optimization: All CT scans at this facility use at least one of these dose optimization techniques: automated exposure control; mA and/or kV adjustment per patient size (includes targeted exams where dose is matched to clinical indication); or iterative reconstruction. COMPARISON: [facility] MR cervical spine wo con 10/31/2018 3:53 PM FINDINGS: Bones/joints: Mild dextroconvex scoliosis. Slight degenerative retrolisthesis of C4 on C5. No acute fracture seen. Disc height loss and spondylosis with uncovertebral arthropathy from C3-C4 through C6-C7. No severe central spinal canal stenosis. Multilevel neural foraminal stenoses due to uncovertebral and facet arthropathy. Discs/Spinal canal/Neural foramina: See Bones/joints finding. Vasculature: Moderate calcified atherosclerosis at the carotid bifurcations. Soft tissues: Unremarkable. IMPRESSION: No cervical spine fracture seen.
--- NOTE | 2021-06-12 13:36 | CT_ITS ---
PROCEDURE INFORMATION: Exam: CT Thoracic Spine Without Contrast Exam date and time: 06/12/2021 1:36 PM Age: 65 years old Clinical indication: Injury or trauma; Fall; Blunt trauma (contusions or hematomas); Injury date: 06/11/21; Injury details: Patient is a double leg amputation-- fell out of his wheelchair has spine pain TECHNIQUE: Imaging protocol: Computed tomography images of the thoracic spine without contrast. Radiation optimization: All CT scans at this facility use at least one of these dose optimization techniques: automated exposure control; mA and/or kV adjustment per patient size (includes targeted exams where dose is matched to clinical indication); or iterative reconstruction. COMPARISON: CT CERVICAL SPINE WO CON 06/12/2021 1:[address] LUNG SCREENING 04/29/2019 3:24:37 PM FINDINGS: Vertebrae: Mild cervicothoracic levoconvex scoliosis. No acute fracture seen. Mild, chronic T12 superior endplate compression fracture is again demonstrated. Thoracic degenerative disc disease is gkrw-ur-ffwtekhg T7-8, T8-9 and T10-11, mild elsewhere. No severe central spinal canal stenoses identified. Discs/Spinal canal/Neural foramina: See Vertebrae finding. Soft tissues: Unremarkable. Vasculature: The aorta demonstrates atherosclerosis. Lymph nodes: There are calcified left perihilar lymph nodes. Lungs: A calcified granuloma in the visualized left upper lobe. Heart: There are coronary artery calcifications. IMPRESSION: No acute thoracic spine fracture seen.
--- NOTE | 2021-06-12 13:36 | CT_ITS ---
PROCEDURE INFORMATION: Exam: CT Lumbar Spine Without Contrast Exam date and time: 06/12/2021 1:36 PM Age: 65 years old Clinical indication: Injury or trauma; Fall; Blunt trauma (contusions or hematomas); Injury date: 06/11/21; Injury details: Patient is a double leg amputation-- fell out of his wheelchair has spine pain TECHNIQUE: Imaging protocol: Computed tomography images of the lumbar spine without contrast. Radiation optimization: All CT scans at this facility use at least one of these dose optimization techniques: automated exposure control; mA and/or kV adjustment per patient size (includes targeted exams where dose is matched to clinical indication); or iterative reconstruction. 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 There are 4 lumbar type vertebral bodies. Anatomic alignment. No acute fracture seen. No significant disc height loss. No high-grade stenoses. Stomach and bowel: There is colonic diverticulosis. Vasculature: The aorta demonstrates atherosclerosis. Soft tissues: Unremarkable. IMPRESSION: No lumbar spine fracture seen.
--- NOTE | 2021-06-12 15:49 | HMH.EDFALL ---
ED Disposition Clinical Impression: Back pain Qualifiers: Back pain location: thoracic back pain Chronicity: acute Back pain laterality: midline Qualified Code(s): M54.6 - Pain in thoracic spine Disposition: Home, Self-Care Condition on Discharge: Good Additional Instructions: You were evaluated in the emergency department today after a fall from her wheelchair with back pain, and there is no need for further emergent evaluation at this time. Pain is likely due to contusion or muscle spasm and strain. Use ibuprofen and acetaminophen as needed for pain control, and follow-up with your primary care physician in the next 3 to 5 days for monitoring of any persistent symptoms and coordination of ongoing care needs. Return to the emergency department without hesitation with any new or worsening symptoms. Referrals: Inder Mendez MD [Primary Care Provider] - - Critical Care Critical Care Time: No Attestation: On 06/12/21, the high probability of a clinically significant, sudden or life threatening deterioration of the following system(s) required my full and direct attention, intervention and personal management. The time I documented below is in addition to time spent performing reported procedures but includes the following listed in this critical care notation. Medical Decision Making - Nelson Inquiry Pt receiving controlled substance: No Vital Signs: 06/12/21 12:19 Temperature 98.1 F Temperature Source Oral Pulse Rate [Right Radial] 78 Respiratory Rate 18 Blood Pressure [Right Arm] 143/72 H Blood Pressure Mean [Right Arm] 95 Blood Pressure Source [Right Arm] Automatic Cuff Blood Pressure Position [Right Arm] Sitting 02 Sat by Pulse Oximetry 99 Oxygen Delivery Method Room Air Medical Decision Narrative: In summary, the patient is a 65-year-old male presenting for evaluation of acute traumatic back pain after ground-level mechanical fall. He is in no acute distress, afebrile and hemodynamically stable, nontoxic in appearance. Physical exam demonstrates comfortable appearing male with chronic bilateral above-knee amputations, normal cardiopulmonary exam, soft nontender abdomen, normal neurologic exam, mild thoracic midline tenderness to palpation without deformity or overlying skin changes, remainder physical exam within normal limits. Differential diagnosis includes was not limited to ligamentous or soft tissue injury, contusion, fracture. Will obtain CT scans without IV contrast of the head, spine, administer ibuprofen, acetaminophen and reassess clinically. Reassessment: Patient continues to be in no acute distress and hemodynamically stable. He reports mild improvement in pain since arrival and received medications. CT scans not demonstrate any acute abnormalities. Will discharge home with return precautions, recommendation for pain control using ibuprofen and acetaminophen, and recommendation for PCP follow-up in the next 2 to 3 days for monitoring of any persistent symptoms and coordination of ongoing care needs. Patient communicated their understanding of the discharge plan, all his questions were answered, discomfortable with the disposition. Fall HPI - General Chief Complaint: Fall Stated Complaint: AO 06/11 fall from wheelchair, back pain Time Seen by Provider: 06/12/21 14:20 Mode of Arrival: Wheelchair Limitations: Physical Limitations Description of Symptoms (Recalled from ER Triage Doc. by RN): To ED per pvt vehicle c/o lower back pain. Pt is a bilateral AKA and states that he fell out of his electric w/c yesterday. Pt states that he hit his head as well, but denies head or neck pain and also denies any LOC. - History of Present Illness HPI Narrative: Patient is a 65-year-old male with a past medical history hypertension, bilateral lower extremity above-knee amputations who presents for evaluation after ground-level mechanical fall approximately 1 hour prior to arrival. He states that he was adju
[2021-06-12 17:00] VITALS: BP 144/72; PULSE 91; RESP 20; TEMP 36.9; O2SAT 97
== END 2021-06-12 16:00 | disposition home or self-care (01) ==
PROVIDERS: Emergency Provider Student in an Organized Health Care Education/Training Program; PCP Family Medicine
DX: M54.6 Pain in thoracic spine (principal); W01.0XXA Fall on same level from slipping, tripping and stumbling without subsequent striking against object, initial encounter; I25.10 Atherosclerotic heart disease of native coronary artery without angina pectoris; E11.9 Type 2 diabetes mellitus without complications; E78.5 Hyperlipidemia, unspecified; I10 Essential (primary) hypertension; I25.2 Old myocardial infarction; F17.210 Nicotine dependence, cigarettes, uncomplicated
CPT/HCPCS: 70450; 72125; 72128; 72131; 99282

== ENCOUNTER → 2021-09-15 11:22 | Outpatient (CLI) | payer MEDICARE, MEDICAID, SELFPAY ==
--- NOTE | 2021-09-15 | CA_ITS ---
APPROVED REPORT Exam: Pharmacologic Technologist: Tami Le, Ht: 4 ft 10 in Wt: 112 lbs BSA: 1.42 m2 HR: 59 bpm BP: 140/68 mmHg Rhythm: NSR, old inferior lateral MT Indications: CAD, CVA, PVD Medical History Medical History: HTN, Hyperlipidemia Medications: Amlodipine,,,,, Lisinopril,,,,, Metoprolol,,,,, Gabapentin,,,,, Atorvastatin,,,,, Benazepril,,,,, Plavix,,,,, ElIQUIS,,,,, Cardiac Risk Factors: HTN, Hyperlipidemia Stress Test Details Test: LEXISCAN HR Resting HR: 61 bpm Max Heart Rate (APMHR): 154.639767 bpm Max HR Achieved: 91 bpm Target HR (85% APMHR): 130.345243 bpm % of APMHR: 59.09 Recovery HR: 87 bpm BP Resting BP: 140/68 mmHg Max BP: 152/74 mmHg Recovery BP: 152.0/74.0 mmHg ECG Clinical Exercise duration: 04:01 min Highest Stage Achieved: Exercise capacity: 1.0 METs Stress ECG Conclusion During lexiscan pt experinced mild SOA, no CP. No arrhythmias noted. No significant changes noted. Unremarkable lexiscan stress. Myoview images reported separately. Test Summary REST . . . . . . . Sitting REST 03:25 . . 61 . 140/ 68 . . Stage 1 01:00 . . 72 . . . . Stage 2 01:00 . . 89 . 136/ 71 . . Stage 3 01:00 . . 87 . 139/ 68 . . Stage 4 01:00 . . 84 . 146/ 74 . . Stage 4 01:01 . . 84 . 146/ 74 . Stop exercise at 04:01 RECOVERY 01:00 . . 85 . . . . RECOVERY 02:00 . . 82 . 152/ 74 . . RECOVERY 03:00 . . 86 . 152/ 74 . . RECOVERY 03:25 . . 80 . 138/ 76 . . Electronically signed by : Wes Kapadia MD 09/16/2021 09:05:08
--- NOTE | 2021-09-15 11:23 | NM_ITS ---
APPROVED REPORT Exam: Nuclear Stress Test Indication: abn ekc..cad Patient Location: Outpatient Stress Tech: Tami HERNANDEZ Tech:Yen Knight NEEL RT(R)(N) Ht: 2 ft 12 in Wt: 112 lbs HR: 59 bpm BP: 140/68 mmHg BSA: 1.01 m2 BMI: 60.7 History: abn ekc..cad Procedure: Patient received a 0.4 mg of intravenous Lexiscan, resting heart rate 59 bpm, resting blood pressure 140/68 mmHg, with Lexiscan maximum heart rate achived was 86 bpm which is 85 % of the maximum predicted heart rate and blood pressure was 146/74 mmHg. With Lexiscan, patient denied any complaint of chest pain. pt unable to lay on his belly Electrocardiogram Resting electrocardiogram showed sinus rhythm, with Lexiscan there is less than 1.[address] segment depression noted from the baseline EKG. The EKG portion of the Lexiscan is nondiagnostic. Cardiac Stress and Resting SPECT Images: Cardiac Stress and Resting SPECT images were obtained using technetium 99m Myoview 32.9 mCi stress and 10.01 mCi at rest. Gated SPECT for analysis of segmental wall motion and calculation of the ejection fraction also done. Cardiac stress and rest SPECT dementia a very large area of fixed defect involving the inferior, inferolateral and lateral wall consistent with area of myocardial scarring with minimal beronica-infarct ischemia, computer derived ejection fraction is 36% with marked inferior inferolateral and lateral wall hypokinesis. Right ventricle is mildly enlarged with normal contractility. Conclusion: 1. The EKG portion of the Lexiscan is nondiagnostic. 2. Scintigraphic evidence of extensive myocardial scarring involving the inferior, inferolateral and lateral wall with minimal beronica-infarct ischemia, computer derived ejection fraction 36% with multiple segmental wall motion abnormalities described above, right ventricle is mildly enlarged with normal contractility. 3. Abnormal Lexiscan Myoview study. Electronically signed by : Wes Kapadia MD 09/16/2021 09:10:41
--- NOTE | 2021-09-15 12:57 | CA_ITS ---
APPROVED REPORT EXAM: Comprehensive 2D, Doppler, and color-flow Echocardiogram Cigar Packing Examiner: RASHAD Cuadra, RVS Ht: 4 ft 11 in Wt: 115lbs BSA: 1.46 BP: 125/44 mmHg Indications: CAD, AFIB, Abn EKG, Hx-CVA-Left arm paralysis, Double amputee-wheelchair bound, smoker Echo Enhancing Agent Comments: Patient scanned upright in wheelchair per patient wishes. 2D Dimensions IVSd 0.96 cm M: 0.6-1.2 LVEF (Visual) 42.40 % PWd 0.82 cm M: 0.6 - 1.2 LA Volume 45.00 mL LVDd 4.44 cm M: 4.2 - 5.9 LA Volume Index 30.82 mL/m2 (M/F) 16-34 LVDs 3.52 cm M: 2.5 - 4.0 Left Atrium 3.52 cm M: 3.0 - 4.0 LVOT 1.80 cm (M/F) 1.5-2.5 M-Mode Dimensions RVDd 2.38 cm (0.9-2.6) LA Diam 3.32 cm (1.9-4.0) LVDd 6.17 cm (3.5-5.7) Ao Diam 3.16 cm (2.0-3.7) LVDs 4.51 cm (3.5-5.7) IVSd 0.94 cm (0.6-1.1) PWd 0.81 cm (0.6-1.1) EF (Teich) 27.30% EPSs 0.87 cm FS 12.80% EDV (Teich) 127.80 mL TAPSE 1.83 (<1.7) ESV (Teich) 92.90 mL LV Diastology E Decel Time 140.00 (160-240 msec) E/A Ratio 0.47 MED E' 3.80 (< 7 cm/sec) MED A' 8.20 cm/s E'/MED E' Ratio 12.95 (>14) LAT E' 4.90 (<10 cm/sec) LAT A' 10.60 cm/s E/LAT E' Ratio 10.04 (>14) Aortic Valve LVOT Max 65.00 (70-110 cm/s) LVOT VTI 14.23 cm AoV Peak Wilmar. 103.00 (50-130 cm/s) AO Peak GR. 4.30 mmHg AO Mean GR. 2.20 (<5 mmHg) AO VTI 23.77 (18-25 cm) PRO (VTI) 1.52 (2.5-4.5 cm2) Mitral Valve MV A Velocity 104.00 (40-130 cm/s) E/A Ratio 0.47 MV Decel. Time 140.00 (160-240 ms) MV Mean Gr. 2.10 (<2mmHg) Pulmonary Valve PV Peak Velocity 75.00 (50-150 cm/s) NM End VMAX 113.00 cm/s Tricuspid Valve TR P. Velocity 186.00 cm/s RAP Estimate 10.00 mmHg RVSP 23.90 mmHg Left Ventricle Left atrium is mildly enlarged, left ventricle is mildly dilated, reduced left ventricular systolic function, visually estimated ejection fraction 35%, there is marked hypokinesis involving the inferior, inferolateral and posterolateral wall. Grade 1 diastolic dysfunction seen without tissue Doppler evidence of raise left atrial pressure. Right Ventricle Right atrium and right ventricle mildly enlarged with normal contractility. Aortic Valve Aortic valve is minimally thickened and fibrosed, there is no aortic stenosis or aortic insufficiency. Mitral Valve Mitral valve grossly normal, there is mild mitral regurgitation. Tricuspid Valve Tricuspid valve grossly normal, there is trace tricuspid regurgitation, tricuspid regurgitation jet velocity is inadequate for calculation of the right ventricular systolic pressure. Pulmonic Valve Pulmonic valve is poorly visualized. Great Vessels Aortic root is normal size. Inferior vena cava is poorly visualized. Pericardium No significant pericardial effusion noted. Conclusion 1. Biatrial enlargement, normal left ventricular size, mild concentric left ventricular hypertrophy, visually estimated ejection fraction 35% with multiple segmental wall motion abnormality described above, grade 1 diastolic dysfunction seen without tissue Doppler evidence of raise left atrial pressure. 2. Mildly enlarged right ventricle with normal contractility. 3. Mild mitral and tricuspid regurgitation. 4. No significant pericardial effusion noted. 5. Inferior vena cava is poorly visualized. Electronically signed by : Wes Kapadia MD 09/16/2021 13:01:20
== END ==
PROVIDERS: PCP Family Medicine; Visit Provider Nurse Practitioner Family
DX: I25.10 Atherosclerotic heart disease of native coronary artery without angina pectoris (principal); R07.9 Chest pain, unspecified; R94.31 Abnormal electrocardiogram [ECG] [EKG]
CPT/HCPCS: 78452; 93017; 93306; A9502; J2785

== ENCOUNTER → 2021-10-01 10:01 | Outpatient (CLI) | payer MEDICARE, MEDICAID, SELFPAY | PROVIDERS: PCP Family Medicine; Visit Provider Internal Medicine | DX: Z01.812 Encounter for preprocedural laboratory examination (principal); Z11.52 Encounter for screening for COVID-19; R94.39 Abnormal result of other cardiovascular function study | CPT/HCPCS: 36415; 80048; 85025; C9803; U0003; U0005 ==

== ENCOUNTER 2021-10-03 08:46 | Day surgery (SDC) | payer MEDICARE, MEDICAID, SELFPAY ==
[2021-10-03] VITALS (11 sets, daily range): BP systolic 131–163; BP diastolic 67–81; PULSE 60–88; RESP 18–20; O2SAT 94–96; BMI 22.8
--- NOTE | 2021-10-03 | IR_ITS ---
APPROVED REPORT Patient Location: Outpatient [facility] Teacher: NEEL Bauer RT (R) PROCEDURES Selective coronary angiogram INDICATION Systolic congestive heart failure, Known coronary artery disease, Typical angina pectoris, High risk abnormal stress test Informed consent was obtained prior to the procedure. COMPLICATIONS None Estimated Blood Loss: Less than 10 mls TECHNIQUE One percent lidocaine used to anesthetize the left anterior aspect of the wrist. The left radial artery was accessed via the Seldinger technique. A 6 Pashto sheath was placed in the left radial artery. 2.5 mg of verapamil, 800 mcg of nitroglycerin, 1mg Lidocaine and 5000 U Heparin were given through the arterial sheath. The Poppa and JL 3 catheter were also used to perform selective coronary angiogram. At the end of the procedure therapeutic heparin was administered giving a therapeutic ACT and a Choice PT extra-support wire was placed distally in the circumflex artery. A 3 mm x 18 mm Xience stent was deployed at 24 kareem reducing the stenosis to 0%. DEANA-3 flow was present before and after the procedure. A 2.5 x 12 mm Xience stent was then placed in the circumflex artery with plans to stent the distal segment. After further angiographic evaluation it was decided this area would not be stented therefore the apparatus was removed the sheath was removed and hemostasis was achieved using TR banding patient was transferred to the postop putting a stable addition ANGIOGRAPHIC RESULTS The left anterior descending artery Has a separate ostium in the left coronary cusp and has stents in the ostial proximal segment which are widely patent with minimal in-stent restenosis. The mid LAD then has 40% narrowing which is smooth followed by additional 30 to 40% a distal 30% stenosis medium sized diagonal artery has proximal 30% stenosis The circumflex artery Is dominant and has its separate ostia which originates in the left coronary cusp. The ostia has an 80% stenosis followed by a stent which has 30% in-stent restenosis. Distal to the second obtuse marginal artery and before the third obtuse marginal artery is a focal 70 to 80% stenosis. This area is 2 mm in diameter and feeds to obtuse marginal arteries both 1 mm in diameter The right coronary artery Ostially occluded with the distal segment filling via [id number] collaterals The GALAN ventriculogram reveals Not performed The left ventricular end-diastolic pressure Not measured IMPRESSION Coronary disease as described above Successful stent to the ostial dominant circumflex artery severe disease reduced to 0% with 1 drug-eluting stent PLAN 1. Dual antiplatelet therapy 2. Risk factor modification 3. Avoidance of tobacco products 4. LDL less than 55 5. Cardiac rehabilitation 6. Medical management for the remaining coronary artery disease Electronically signed by : Roberto Darnell MD 10/03/2021 13:13:49
[2021-10-03 13:21] LABS: CATHL Activated Clotting Time > 400 SEC (74-125)
--- NOTE | 2021-10-03 15:33 | HMH.PHACLD ---
Nicho Salinasdanni Crews has received discharge medication counseling on the following medications: PATIENT IS CURRENTLY TAKING BENAZEPRIL 20 MG DAILY, LISINOPRIL 2.5 MG DAILY, ATORVASTATIN 40 MG HS, METOPROLOL TARTRATE 12.5 MG DAILY AND CLOPIDOGREL 75 MG DAILY. MD STARTING ASPIRIN 81 MG DAILY. CALLED MD OFFICE. STOPPING LISINOPRIL 2.5 MG DAILY AT THIS TIME.
== END 2021-10-03 16:05 | disposition home or self-care (01) ==
LOC: CATHLAB 08:49
PROVIDERS: PCP Family Medicine; Visit Provider Internal Medicine
DX: R94.39 Abnormal result of other cardiovascular function study (principal); I25.118 Atherosclerotic heart disease of native coronary artery with other forms of angina pectoris; I50.22 Chronic systolic (congestive) heart failure; T82.855A Stenosis of coronary artery stent, initial encounter; Z79.01 Long term (current) use of anticoagulants; I11.0 Hypertensive heart disease with heart failure; I65.23 Occlusion and stenosis of bilateral carotid arteries; I48.0 Paroxysmal atrial fibrillation; I25.5 Ischemic cardiomyopathy; Z79.899 Other long term (current) drug therapy; Y83.1 Surgical operation with implant of artificial internal device as the cause of abnormal reaction of the patient, or of later complication, without mention of misadventure at the time of the procedure
CPT/HCPCS: 85347; 93454; 99152; 99153; C1725; C1769; C1875; C1876; J1644; Q9967

== ENCOUNTER 2022-05-14 10:25 | Inpatient (IN) | payer MEDICARE, MEDICAID, SELFPAY ==
[2022-05-14] VITALS (18 sets, daily range): BP systolic 81–116; BP diastolic 43–67; PULSE 71–109; RESP 16–22; TEMP 36.8–36.9; O2SAT 87–98; BMI 36.0; BMI 20.2
--- NOTE | 2022-05-14 10:36 | CT_ITS ---
PROCEDURE INFORMATION: Exam: CT Head Without Contrast Exam date and time: 05/14/2022 10:50 AM Age: 66 years old Clinical indication: Injury or trauma; Fall; Blunt trauma (contusions or hematomas); Consciousness not specified; Injury date: 05/12/22 TECHNIQUE: Imaging protocol: Computed tomography of the head without contrast. Radiation optimization: All CT scans at this facility use at least one of these dose optimization techniques: automated exposure control; mA and/or kV adjustment per patient size (includes targeted exams where dose is matched to clinical indication); or iterative reconstruction. COMPARISON: CT HEAD/BRAIN WO CON 06/12/2021 1:28 PM FINDINGS: Brain: Prominent sulci. Patchy hypodensity of the cerebral white matter which are nonspecific but likely secondary to microangiopathic changes. Multifocal remote ischemic change in the right MCA distribution. Cerebral ventricles: The ventricles are prominent secondary to diffuse volume loss/atrophy. Paranasal sinuses: Visualized sinuses are unremarkable. No fluid levels. Mastoid air cells: Visualized mastoid air cells are well aerated. Bones/joints: Unremarkable. No acute fracture. Soft tissues: Left frontal tissue swelling. IMPRESSION: Left frontal tissue swelling and age related and remote right MCA skin henri changes but no evidence of acute intracranial pathology.
--- NOTE | 2022-05-14 10:37 | CT_ITS ---
PROCEDURE INFORMATION: Exam: CT Lumbar Spine Without Contrast Exam date and time: 05/14/2022 10:52 AM Age: 66 years old Clinical indication: Injury or trauma; Fall TECHNIQUE: Imaging protocol: Computed tomography of the lumbar spine without contrast. Radiation optimization: All CT scans at this facility use at least one of these dose optimization techniques: automated exposure control; mA and/or kV adjustment per patient size (includes targeted exams where dose is matched to clinical indication); or iterative reconstruction. COMPARISON: CT LUMBAR SPINE WO CON 06/12/2021 1:42 PM FINDINGS: Bones/joints: Stable mild compression deformity of L1. Interval appearance of mild compression deformity of L2 which is age indeterminate, possibly acute. Vasculature: Arterial calcifications are present. Soft tissues: Unremarkable. IMPRESSION: Stable mild compression deformity of L1. Interval appearance of mild compression deformity of L2 which is age indeterminate, possibly acute.
--- NOTE | 2022-05-14 10:37 | XR_ITS ---
PROCEDURE INFORMATION: Exam: XR Pelvis Exam date and time: 05/14/2022 11:13 AM Age: 66 years old Clinical indication: Injury or trauma; Fall; Blunt trauma (contusions or hematomas); Bilateral; Pelvic region; Additional info: Fall-- patient has bilateral leg amputations TECHNIQUE: Imaging protocol: Radiologic exam of the pelvis. Views: 1 or 2 view. COMPARISON: CR COCCYX2 COCCYX 2 VIEW 01/23/2017 11:16 AM FINDINGS: Tubes, catheters and devices: Surgical clips overlying the right hip. Bones/joints: Unremarkable. No acute fracture. Soft tissues: Unremarkable. Vasculature: Stent in the region of the right iliac vessels. IMPRESSION: No definite evidence of acute trauma involving the pelvis.
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
--- NOTE | 2022-05-14 10:45 | PC.NURSE ---
pt to rad
--- NOTE | 2022-05-14 11:07 | PC.NURSE ---
Pt back from RAD
[2022-05-14 11:27] LABS: Chloride 105 mmol/L (98-107); Sodium 136 mmol/L (136-145)
[2022-05-14 11:31] LABS: Blood Urea Nitrogen 16 mg/dl (9-20); Calcium 8.4 mg/dl (8.4-10.2); Carbon Dioxide 21 mmol/L (22.0-30.0); Creatinine Clearance Estimated 55 mL/min (50-200); Estimated Glomerular Filt Rate 113 ml/min (>60); GFR (African American) 137 ML/MIN (>60); Glucose 109 mg/dl (74-100)
[2022-05-14 11:35] LABS: Basophils # 0.1 K/mm3 (0-0.2); Basophils % 0.6 % (0.1-2.0); Eosinophils # 0.3 K/mm3 (0.0-0.4); Hematocrit 34.3 % (42.0-52.0); Hemoglobin 11.4 g/dL (14.1-18.0); Lymphocytes % 19.5 % (10-50); Mean Corpuscular HGB Conc 33.1 g/dL (31.8-35.4); Mean Corpuscular Hemoglobin 30.4 pg (27.0-31.2); Mean Corpuscular Volume 91.8 fl (80-94); Mean Platelet Volume 8.8 fl (7.4-10.4); Monocytes # 0.8 K/mm3 (0.1-1.0); Monocytes % 7.9 % (1.7-9.3); Neutrophils # 7.2 K/mm3 (1.8-7.8); Platelet Count 267 K/mm3 (142-424); Red Blood Count 3.74 M/mm3 (4.60-6.20); Red Cell Distribution Width 15.1 % (11.5-17.5); White Blood Count 10.4 K/mm3 (4.8-10.8)
[2022-05-14 11:39] LABS: Anion Gap 15.6 mEq/L (5-15); Potassium 5.6 mmoL/L (3.5-5.1)
--- NOTE | 2022-05-14 12:21 | PC.NURSE ---
pt's family updated on plan of care
--- NOTE | 2022-05-14 13:55 | PC.NURSE ---
pt repositioned in the bed and head of bed raised
--- NOTE | 2022-05-14 14:00 | PC.NURSE ---
lungs with diminished chloé.
--- NOTE | 2022-05-14 14:01 | XR_ITS ---
PROCEDURE INFORMATION: Exam: XR Chest Exam date and time: 05/14/2022 2:14 PM Age: 66 years old Clinical indication: Shortness of breath; Additional info: SOB TECHNIQUE: Imaging protocol: Radiologic exam of the chest. Views: 1 view. COMPARISON: CR XR CHEST PORTABLE 07/26/2020 12:10 PM FINDINGS: Lungs: Bilateral hyperinflation is present. Interstitial prominence is noted bilaterally. Atelectasis and/or early infiltrative changes noted within the left lung base. Pleural spaces: Unremarkable. No pleural effusion. No pneumothorax. Heart/Mediastinum: Heart demonstrates mild diffuse enlargement. Bones/joints: Unremarkable. IMPRESSION: 1. Mild cardiomegaly. 2. Bilateral hyperinflation is present. 3. Interstitial prominence is noted bilaterally. 4. Atelectasis and/or early infiltrative changes noted within the left lung base.
--- NOTE | 2022-05-14 14:07 | PC.NURSE ---
o2 turned off o2 sats of 86% ra. pt placed back on o2 at 4L
[2022-05-14 14:32] LABS: VBG Base Excess -6.6 mmol/L (-2.4-2.3); VBG HCO3 19.9 mmol/L (23-30); VBG Oxygen Saturation 54.5 % (50-70); VBG PCO2 41.9 mmol/L (35-51); VBG PH 7.29 mmol/L (7.31-7.41); VBG PO2 34.4 mmol/L (28-40); VBG Total CO2 21.2 mmol/L (23-27)
--- NOTE | 2022-05-14 15:01 | ECG_ITS ---
APPROVED REPORT Exam: Resting ECG HR:83 bpm ECG Measurements Heart Rate 83 AXES DE 134 P 47 QRSd 84 QRS 24 QT 416 T 140 QTc 455 Conclusion SINUS RHYTHM ABNORMAL ECG UNCONFIRMED REPORT Electronically signed by : Inder Figueroa MD 05/18/2022 16:03:20
[2022-05-14 15:18] LABS: NT Pro Brain Natriuretic Pep. 589 pg/mL (0-125)
[2022-05-14 15:25] LABS: Troponin I 0.01 ng/ml (0.00-0.034)
--- NOTE | 2022-05-14 15:25 | PC.NURSE ---
Lab at bedside
--- NOTE | 2022-05-14 15:56 | PC.NURSE ---
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
--- NOTE | 2022-05-14 17:06 | PC.NURSE ---
Assisted with pt scooting up in stretcher
--- NOTE | 2022-05-14 17:51 | PC.NURSE ---
Called report to Tiffanie Pradhan RN
[2022-05-14 17:58] LABS: Coronavirus 19, PCR Not Detected (NotDetected); Influenza A, PCR Not Detected (NotDetected); Influenza B, PCR Not Detected (NotDetected)
--- NOTE | 2022-05-14 18:56 | PC.NURSE ---
PT arrived to the floor at this time
[2022-05-15] VITALS (10 sets, daily range): BP systolic 93–126; BP diastolic 53–74; PULSE 90–112; RESP 16–26; TEMP 36.6–37.1; O2SAT 83–98
--- NOTE | 2022-05-15 04:01 | PC.NURSE ---
TECH CAME IN TO PTS ROOM TO OBTAIN VS. O2 SAT FOUND TO BE 83%. TURNED PTS NC O2 TO 4.5L WITH NOT MUCH CHANGE. RT WILL PAGED AND CAME TO ROOM. PT PLACED ON VENTI MASK 35%. O2 SAT CURRENTLY 84%
--- NOTE | 2022-05-15 04:11 | PC.NURSE ---
PT 02 SAT 82%. INCREASED VENTI MASK TO 40%. RT AT BEDSIDE.
--- NOTE | 2022-05-15 04:19 | PC.NURSE ---
PT CONFUSED THIS AM UNABLE TO TELL ME WHERE HE IS OR WHAT YEAR IT IS. O2 SAT NOW 86% ON VENTI 40%
[2022-05-15 04:26] LABS: ABG Base Excess -5.6 mmol/L (-2.4-2.3); ABG HCO3 19.1 mmhg (22.0-26.0); ABG Oxygen Saturation 87 % (90-100); ABG PH 7.41 mmol/L (7.35-7.45); ABG PO2 55.6 mmhg (80-100)
[2022-05-15 04:27] LABS: Allen's Test Y; Oxygen 40 VM %; Source Right Radial
--- NOTE | 2022-05-15 04:29 | PC.NURSE ---
PT O2 SAT CURRENTLY 87%. LUNG SOUNDS DIMINISHED. DOES NOT APPEAR TO BE IN DISTRESS. IS NOW A&OX4. RT AT BEDSIDE. VENTI TURNED TO 50%.
--- NOTE | 2022-05-15 04:37 | PC.NURSE ---
SPOKE WITH DR DUPONT AT THIS TIME. ORDERS RECEIVED FOR DUONEB NOW, AND IF O2 SAT DOES NOT INCREASE TO PLACE ON NON REBREATHER
--- NOTE | 2022-05-15 04:59 | PC.NURSE ---
O2 SATS NOT IMPROVING PLACED ON NRB BY RT
--- NOTE | 2022-05-15 05:02 | PC.NURSE ---
PT O2 SATS 96% AT THIS TIME. SPOKE WITH DR DUPONT. ORDERS RECEIVED TO LEAVE ON NRB FOR NOW. IF O2 SAT DECREASES TO <90% ON NRB TO CALL NENA ROBLES. IF IN ONE HOUR O2 SATS IN 90'SON NRB, PLACE BACK ON 50% VENTI.
--- NOTE | 2022-05-15 06:04 | PC.NURSE ---
PT O2 SATS 96% ON NRB. PLACED BACK ON VENTI MASK 50%. O2 SAT CURRENTLY 90%.
--- NOTE | 2022-05-15 07:10 | PC.NURSE ---
PT PLACED ON 6L NC BY RT SO HE CAN EAT BREAKFAST.
--- NOTE | 2022-05-15 07:15 | EXP.PHA.VTE ---
[facility] Pharmacy VTE Monitoring Patient Demographics Admission date: 05/14/22 Report Date: 05/15/22 Time: 07:15 Patient Allergies sulfamethoxazole [From Bactrim] Allergy (Intermediate, Verified 10/03/21 09:30) trimethoprim [From Bactrim] Allergy (Intermediate, Verified 10/03/21 09:30) zolpidem [From Ambien] Allergy (Unknown, Verified 10/03/21 09:30) PT STATES 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 Height: 1.63 m Weight: 53.524 kg Current Active Problems (Updated 05/14/22 @ 20:02 by Yen Mccormack RN) Closed compression fracture of L2 vertebra (Acute) Contusion of head (Acute) Acute respiratory failure with hypoxia (Acute) Pneumonia (Acute) Acute hypotension (Acute) VTE Risk Labs: VTE Related Lab Results Hgb 11.4 g/dL (14.1-18.0) L 05/14/22 11:26 Hct 34.3 % (42.0-52.0) L 05/14/22 11:26 Plt Count 267 K/mm3 (142-424) 05/14/22 11:26 BUN 16 mg/dl (9-20) 05/14/22 11:15 Creatinine 0.70 mg/dl (0.66-1.25) 05/14/22 11:15 Estimated Creat Clear 55 mL/min (50-200) 05/14/22 11:15 Prophylaxis VTE Prophylaxis Ordered?: Yes Types of VTE Prophylaxis: Pharmacological Pharmacologic Type: Other (ELIQUIS)
--- NOTE | 2022-05-15 08:30 | CA_ITS ---
APPROVED REPORT EXAM: Comprehensive 2D, Doppler, and color-flow Echocardiogram Acting Instructor: Triny Dawn CRT Ht: 2 ft 12 in Wt: 118lbs BSA: 1.03 BP: 116/52 mmHg Indications: CAD, Hyperlipidemia, Cardiomyopathy, Hypertension/HDD, stent, bilateral ATK 2D Dimensions LVOT 1.71 cm (M/F) 1.5-2.5 LA Volume 21.60 mL LA Volume Index 21.00 mL/m2 (M/F) 16-34 M-Mode Dimensions RVDd 2.67 cm (0.9-2.6) LA Diam 3.30 cm (1.9-4.0) LVDd 4.37 cm (3.5-5.7) Ao Diam 4.20 cm (2.0-3.7) LVDs 3.43 cm (3.5-5.7) IVSd 1.58 cm (0.6-1.1) PWd 0.90 cm (0.6-1.1) EF (Teich) 43.80% FS 21.50% EDV (Teich) 86.30 mL TAPSE 2.36 (<1.7) ESV (Teich) 48.50 mL LV Diastology E Decel Time 150.00 (160-240 msec) E/A Ratio 0.44 MED E' 7.80 (< 7 cm/sec) MED A' 13.50 cm/s E'/MED E' Ratio 8.36 (>14) LAT E' 9.70 (<10 cm/sec) LAT A' 12.90 cm/s E/LAT E' Ratio 6.72 (>14) Aortic Valve AO Peak GR. 7.70 mmHg Mitral Valve MV E Max Wilmar. 65.00 (40-130 cm/s) MV A Velocity 148.00 (40-130 cm/s) E/A Ratio 0.44 MV Decel. Time 150.00 (160-240 ms) MV PHT 44.00 ms Pulmonary Valve PV Peak Velocity 125.00 (50-150 cm/s) Tricuspid Valve TR P. Velocity 256.00 cm/s RAP Estimate 10.00 mmHg RVSP 36.30 mmHg Left Ventricle Technically difficult study because of the patient factors and poor acoustic windows. Left atrium is mildly enlarged, left ventricle is normal size mild concentric left ventricular hypertrophy, estimated ejection fraction 50% with no regional wall motion abnormality in the obtained views. Grade 1 diastolic dysfunction seen without tissue Doppler evidence of raise left atrial pressure. Right Ventricle Right atrium and right ventricle are normal size and contractility. Aortic Valve Aortic valve is minimally thickened and fibrosed there is no aortic stenosis or aortic insufficiency. Mitral Valve Mitral valve has mitral calcification, leaflets are minimally thickened, there is no mitral stenosis, there is mild mitral regurgitation. Tricuspid valve grossly normal, there is mild tricuspid regurgitation, Tricuspid Valve Tricuspid regurgitation jet velocity is inadequate for calculation of the right ventricular systolic pressure. Pulmonic Valve Pulmonic valve is poorly visualized. Great Vessels Aortic root is normal size. Inferior vena cava is poorly visualized. Pericardium No significant pericardial effusion noted. There is anterior echo-free space seen. Conclusion 1. Technically difficult study because of the patient factors and poor acoustic windows. Mildly enlarged left atrium, normal left ventricular size, mild concentric left ventricular hypertrophy, estimated ejection fraction 50% with no regional wall motion abnormalities obtained views, grade 1 diastolic dysfunction seen without tissue Doppler evidence of raise left atrial pressure. 2. Mild mitral and tricuspid regurgitation. 3. No significant pericardial effusion noted. There is anterior echo-free space seen. 4. Inferior vena cava is poorly visualized. Electronically signed by : Wes Kapadia MD 05/15/2022 12:30:37
--- NOTE | 2022-05-15 08:35 | XR_ITS ---
FINAL REPORT CLINICAL HISTORY: pneumonia-f/u COMPARISON: May 14, 2022 FINDINGS: SINGLE VIEW CHEST The heart is normal in size. The mediastinum is unremarkable. The lungs are hypoinflated with no focal infiltration. There is no pleural effusion. There is no pneumothorax. IMPRESSION: No acute disease. Reviewed, Interpreted and Dictated by Olimpia Walton MD Transcribed by Xuan Ernandez Authenticated and [facility]
[2022-05-15 09:17] LABS: Microscopic, Urine URINE MICROSCOPIC (MICROSCOPIC)
[2022-05-15 09:20] LABS: Appearance,Urine CLEAR (Clear); Bilirubin,Urine Negative (Negative); Blood, Urine Negative (Negative); Color,Urine YELLOW (Yellow); Glucose,Urine (UA) Negative (Negative); Ketones,Urine Negative (Negative); Leukocyte Esterase,Urine Negative (Negative); Nitrate,Urine Negative (Negative); Protein,Urine Negative (Negative); Urobilinogen,Urine 0.2 EU/dl (0.2)
--- NOTE | 2022-05-15 09:32 | EXP.PULM.CON ---
History of Present Illness History of present illness: Mr. Crews is a 66-year-old male current smoker greater than 17-lamp-rexa smoking history no smoking around 2 packs a day when at home, close to half pack a day while at care home presented to the hospital complaining of back pain and also noted to be in respiratory distress and hypoxic while in the emergency department, initiated on treatment for COPD exacerbation and pneumonia and pulmonary was called for further management. Upon questioning patient admits chronic baseline respiratory symptoms worsens on the heart humid air, but no recent worsening symptoms before coming to the hospital. He denies any worsening cough or productive phlegm. [facility] Medical History (Updated 05/15/22 @ 16:29 by Reginald Hooks MD) Acute exacerbation of chronic obstructive pulmonary disease (COPD) Below-knee amputation of left lower extremity Below-knee amputation of right lower extremity Cardiomyopathy, ischemic Vision changes Surgical History (Updated 05/14/22 @ 20:02 by Yen Mccormack RN) History of heart artery stent Family History (Updated 05/14/22 @ 20:02 by Yen Mccormack RN) Other Myocardial infarction acute Social History Smoking Status: Current every day smoker tobacco type: cigarettes packs per day: 1 alcohol intake: never substance use type: denies use current occupational status: disabled Travel in the last 8 weeks: [place] the [place] household members: significant other housing: apartment current occupational exposures/hazards: No caffeine: Yes Review of Systems Constitutional Constitutional: Reports fatigue, Reports headache(s) and Denies weakness Eyes Eyes: Denies eye discharge, Denies dry eyes, Denies irritation and Denies itchy eyes ENT Ears, Nose, Mouth, and Throat: Reports headache(s), Denies lip swelling and Denies throat swelling *Cardiovascular Cardiovascular: Reports dyspnea and Reports dyspnea on exertion *Respiratory Respiratory: Reports chest congestion, Reports cough, Reports dyspnea, Reports dyspnea on exertion, Denies excessive phlegm production and Reports wheezing *Gastrointestinal Gastrointestinal: Denies abdominal pain, Denies belching and Denies cramping *Musculoskeletal Musculoskeletal: Reports back pain, Reports deformity and Denies numbness Comments: lower extremity amputations *Neurologic Neurologic: Reports headache(s), Denies numbness and Denies weakness Psychiatric Psychiatric: Denies homicidal ideation and Denies suicidal ideation Endocrine Endocrine: Reports fatigue and Denies heat intolerance Hematologic/Lymphatic Hematologic/Lymphatic: Denies easy bleeding and Denies lymphadenopathy Allergic/Immunologic Allergic/Immunologic: Denies itchy eyes, Denies lip swelling, Denies throat swelling and Reports wheezing Pulmonology Exam Inpatient Vital signs and Labs for Last 24 Hours: Temp Pulse Resp BP Pulse Ox FiO2 97.9 F 108 H 20 116/59 L 90 L 100 05/15/22 08:00 05/15/22 08:00 05/15/22 08:00 05/15/22 08:00 05/15/22 08:00 05/15/22 04:56 Laboratory Results - last 24 hr 05/14/22 11:15: Sodium 136, Potassium 5.6 H, Chloride 105, Carbon Dioxide 21 L, Anion Gap 15.6 H, BUN 16, Creatinine 0.70, Estimated Creat Clear 55, Estimated GFR 113, Est GFR ( Amer) 137, Glucose 109 H, Calcium 8.4 05/14/22 11:15: Troponin I 0.01, NT-Pro-B Natriuret Pep 589 H 05/14/22 11:26: WBC 10.4, RBC 3.74 L, Hgb 11.4 L, Hct 34.3 L, MCV 91.8, MCH 30.4, MCHC 33.1, RDW 15.1, Plt Count 267, MPV 8.8, Neut % (Auto) 69.0, Lymph % (Auto) 19.5, [place] % (Auto) 7.9, Eos % (Auto) 3.0, Baso % (Auto) 0.6, Neut # (Auto) 7.2, Lymph # (Auto) 2.0, [place] # (Auto) 0.8, Eos # (Auto) 0.3, Baso # (Auto) 0.1 05/14/22 14:22: VBG pH 7.29 L, VBG pCO2 41.9, VBG pO2 34.4, VBG HCO3 19.9 L, VBG Total CO2 21.2 L, VBG O2 Saturation 54.5, VBG Base Excess -6.6 L 05/14/22 15:30: Lactate 2.0 05/14/22 17:53: VIVIAN
[2022-05-15 09:43] LABS: Bacteria,Urine Trace /lpf; Hyaline Casts,Urine Occasional #/lpf (0); Sperm,Urine 2+ /lpf; Squamous Epithelial Cell,Urine Occasional #/hpf (0-5); WBC,Urine Occasional #/hpf (0-3)
--- NOTE | 2022-05-15 09:58 | EXP.CARD.CON ---
History of Present Illness History of Present Illness Consult date: 05/15/22 Requesting physician: Kemal Hwang Consult reason: hypotension Chief complaint: Back pain Additional Medical History:: 1. CAD A. Abnormal lexiscan myoview, EF 44% with lateral and inferior ischemia. B. Cardiac cath, 10/24/2017, 3 vessel disease with SUSANNE to LAD and Cx. Medical therapy for RCA due to location of stenosis to RV marginal. Normal LVEF and LVEDP. On DAPT. C. Abnormal Lexiscan Myoview, 08/2021, myocardial scarring inferiorly, inferolateral and lateral dennis with minimal beronica-infarction ischemia. EF 36%. Multiple segmental wall motion abnormalities. D. Cardiac catheterization, 10/03/2021, SUSANNE to ostial dominant circumflex. Ostial LAD stent patent with mild to moderate disease thereafter. RCA occluded ostially with [id number] collaterals. 2. Tobacco use, continued until stenting 10/24/2017 3. HTN 4. HLD, on statin. 5. JEFFRY, with visual scotomas. A. Carotid artery stenosis, IVAN 50-69%, LICA 70-99%, 02/2018 B. Carotid angiogram, 02/2018, IVAN 60-70%, LICA 50-60%, right vertebral occluded, left vertebral 60-70% at the origin. Medical management recommended C. Brain MRI, 10/20/2018, 1. Generalized atrophy with chronic ischemic gliotic changes with areas of encephalomalacia in the right frontoparietal region and right posterior parietal region. No acute intracranial findings are evident. 2. Degenerative disc disease with canal stenosis and mild compression/flattening of the cord at C3-C4 and C4-C5. MRI of the cervical spine may be of further value. 3. Bilateral mastoid sinus disease D. Carotid ultrasound, 03/08/2020 and August 2020, IVAN 20-49%, LICA 50-69% E. Referred to [facility], 01/2021, for evaluation F. Due to CVA's, referred to CT surgery for JEFFRY, 08/[address], 05/14/2022, left frontal tissue swelling. Prominent sulci. Patchy hypodensity of the cerebral white matter, nonspecific but likely secondary to microangiopathic changes. Multiple focal remote ischemic changes in the right MCA distribution. The ventricles are prominent secondary to to diffuse volume loss/atrophy. 6. PAD A. bilateral BKA 7. Paroxysmal atrial fibrillation, 03/2018, Eliquis therapy started. 8. Ischemic cardiomyopathy (new compared to 03/18/20 echo) A. Echocardiogram 09/16/2021, biatrial enlargement, normal LV size, mild concentric LVH. EF 35% with multiple segmental wall motion abnormalities (marked hypokinesis involving the inferior, inferolateral and posterior lateral wall). Grade 1 diastolic dysfunction. Mild RV enlargement with normal contractility. Mild MR and TR. No pericardial effusion. 9. Anemia, chronic Since 2018 with hemoglobin ranging from 11.5-13.5 History of present illness: Brought in by ambulance.? States that he fell out of his wheelchair on Sunday.? Landed on his back and hit his head.? Denies loss of consciousness.? Since the fall his main complaint is pain in his lower back.? Also says that he has headaches.? No vomiting.? Denies any other injuries.? No neck pain.? No upper back pain.? No abdominal pain or chest pain.? He is on Eliquis for atrial fibrillation.? He has bilateral [id number] amputations. States he has taken muscle relaxers for his pain, no pain relievers. The above per PAPITO Dinh MD. Patient confirms events as noted above. States he had a bump in the sidewalk and fell out of his wheelchair. He denies any chest pain, pressure or tightness. Cardiac cath in September of this year with subsequent stent placement. No further chest pain per patient. History of carotid or vertebral artery stenting earlier this year with no further CVAs or visual scotomas per patient. He follows up with [facility] regarding this issue Possible hypotension listed as reason for consult but patient blood pressure seems to be fairly stable over the last few months on current medication regimen of metoprolol and
--- NOTE | 2022-05-15 10:41 | MR_ITS ---
FINAL REPORT TECHNIQUE: Multiplanar MR without gadolinium enhancement CLINICAL HISTORY: QUESTION ACUTE COMPRESSION FRACTURE. FALL FINDINGS: Sagittal images show mild chronic compression fractures of L1 and L2 t. subacute mild compression fracture of L4. Alignment is normal. Mild diffuse degenerative disc disease without canal stenosis or nerve root compression. IMPRESSION: Subacute mild compression fracture of L4. Mild chronic compression fractures of L1 and L2. Reviewed, Interpreted and Dictated by Olimpia Walton MD Transcribed by Jonnathan Serrano Authenticated and [facility]
--- NOTE | 2022-05-15 11:24 | P.CONPHA_ITS ---
Pharmacy Intervention Comments: MEDICATION RECONCILIATION COMPLETED ON PATIENT USING MAR FROM [facility]. -MARILYNN TRACEY, W[place]END
--- NOTE | 2022-05-15 11:24 | HMH.PHAINT1 ---
Pharmacy Intervention Comments: MEDICATION RECONCILIATION COMPLETED ON PATIENT USING [facility] FROM [facility]. -MARIYLNN TRACEY, WARREND
--- NOTE | 2022-05-15 11:45 | PC.NURSE ---
Pt off the unit to MRI
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
--- NOTE | 2022-05-15 14:02 | PC.NURSE ---
Pt returned from MRI
[2022-05-15 15:22] LABS: Anion Gap 27.9 mEq/L (5-15); Blood Urea Nitrogen 17 mg/dl (9-20); Carbon Dioxide 17 mmol/L (22.0-30.0); Chloride 114 mmol/L (98-107); Creatinine Clearance Estimated 55 mL/min (50-200); Estimated Glomerular Filt Rate 166 ml/min (>60); GFR (African American) 201 ML/MIN (>60); Glucose 107 mg/dl (74-100)
[2022-05-15 15:30] LABS: Potassium 2.9 mmoL/L (3.5-5.1); Sodium 156 mmol/L (136-145)
--- NOTE | 2022-05-15 15:37 | PC.NURSE ---
Lab called at 1528 with critical labs of Sodium-156 and Potassium-2.9. Name and verified. Dr. Hwang notified at 1535
--- NOTE | 2022-05-15 16:26 | PC.NURSE ---
Pt has rested well this shift. Pt A&Ox4. BLT lungs diminished throughout. Bowel sounds present in all 4 quadrants. Pt is on 3L NC and has tolerated well without SOA. Pt had a BM this shift. IV patent and Infusing well. F/C placed this morning by . Pt has had good urine output. Pt denies any pain, SOA, headache, or N/V
--- NOTE | 2022-05-15 16:51 | PC.NURSE ---
Called Dr. Cummins to remind about orders for critical values. Telephone orders given to switch fluids to 1/2 NS and give x2 runs 20meq of potassiu. Orders v/r
--- NOTE | 2022-05-15 20:58 | PC.NURSE ---
Pt made aware of need of sputum specimen. Instruction given to pt and specimen cup left at pt bedside. Pt verbalizes understanding.
[2022-05-16] VITALS: BP 140/59; PULSE 100; PULSE 98; RESP 18; TEMP 37; O2SAT 92
[2022-05-16 04:00] VITALS: BP 133/71; PULSE 88; RESP 20; TEMP 36.6; O2SAT 90
--- NOTE | 2022-05-16 05:35 | PC.NURSE ---
Shift summary: Pt has slept majority of shift. Pt did c/o JERRY 1x during shift, tylenol prn administered per OCT. Pt has been repositioned for comfort. 2 BMs during this shift. Yeung in place. Bilat lower lung bases diminished. Call light within reach.
[2022-05-16 05:49] VITALS: PULSE 90
[2022-05-16 08:00] VITALS: BP 126/58; PULSE 100; RESP 16; TEMP 36.7; O2SAT 91
[2022-05-16 08:32] LABS: Chloride 103 mmol/L (98-107); Potassium 3.6 mmoL/L (3.5-5.1); Sodium 139 mmol/L (136-145)
[2022-05-16 08:35] LABS: Blood Urea Nitrogen 18 mg/dl (9-20); Creatinine Clearance Estimated 55 mL/min (50-200); Estimated Glomerular Filt Rate 135 ml/min (>60); GFR (African American) 163 ML/MIN (>60)
[2022-05-16 08:36] LABS: Anion Gap 12.6 mEq/L (5-15); Calcium 8.3 mg/dl (8.4-10.2); Carbon Dioxide 27 mmol/L (22.0-30.0); Glucose 106 mg/dl (74-100)
--- NOTE | 2022-05-16 08:42 | SW/DCPLANNER ---
Addendum entered by Maeve Amaral 05/16/22 12:33: Patient will return to [facility] today. Original Note: This patient currently resides at [facility] level of care. The plan for this patient is to return to [facility] pending labs work this AMTimur yln/ [facility] has requested a COVID swab prior to returning.
[2022-05-16 09:21] LABS: Coronavirus 19, PCR Not Detected (NotDetected); Influenza A, PCR Not Detected (NotDetected); Influenza B, PCR Not Detected (NotDetected)
--- NOTE | 2022-05-16 09:34 | EXP.PULM.PN ---
Subjective *Date: 05/16/22 *Time: 10:36 Interval history: No acute respiratory events overnight. Patient admits current improvement in his symptoms. Still complains of back pain. Pulmonology Exam Inpatient Vital signs and Labs for Last 24 Hours: Temp Pulse Resp BP Pulse Ox FiO2 98.1 F 100 H 16 126/58 L 91 L 100 05/16/22 08:00 05/16/22 08:00 05/16/22 08:00 05/16/22 08:00 05/16/22 08:00 05/15/22 04:56 Laboratory Results - last 24 hr 05/15/22 08:59: Urine RBC None, Urine WBC Occasional, Ur Squamous Epith Cells Occasional, Urine Bacteria Trace, Hyaline Casts Occasional, Urine Sperm 2+ 05/15/22 15:00: Sodium 156 H*, Potassium 2.9 L* D, Chloride 114 H, Carbon Dioxide 17 L, Anion Gap 27.9 H, BUN 17, Creatinine 0.50 L D, Estimated Creat Clear 55, Estimated GFR 166, Est GFR ( Amer) 201 D, Glucose 107 H, Calcium 6.0 L 05/15/22 15:00: Prostate Specific Ag 0.340 05/16/22 08:20: Sodium 139, Potassium 3.6 D, Chloride 103, Carbon Dioxide 27, Anion Gap 12.6, BUN 18, Creatinine 0.60 L, Estimated Creat Clear 55, Estimated GFR 135, Est GFR ( Amer) 163, Glucose 106 H, Calcium 8.3 L I & O for Labs for Last 24 Hours: Intake & Output 05/13/22 05/14/22 05/15/22 05/16/22 23:59 23:59 23:59 23:59 Intake Total 0 / 0 885 / 885 845 / 845 Output Total 3150 / 3150 1000 / 1000 Balance 0 / 0 -2265 / -2265 -155 / -155 Weight 118 lb 118 lb Constitutional: Present no acute distress and mild distress Head: Present normocephalic and atraumatic ENT: Present normal exam, normal oropharynx and mucous membranes moist Neck: Present normal inspection and full ROM Respiratory: Present able to speak in complete sentences; Absent respiratory distress, wheezes or crackles Cardiac: Present S1/S2, Tachycardia and radial pulses present GI: Present soft and distention; Absent tenderness or guarding Skin: Present intact; Absent cyanosis or jaundice Neuro: Present alert, awake and oriented x 3 Extremities: Present normal inspection; Absent clubbing or cyanosis Comment:: Lower extremity amputation Psychiatric: Present normal affect and cooperative Assessment and Plan *Assessment and plan (1) Pneumonia: Status: Acute Category: Medical Code(s): J18.9 - Pneumonia, unspecified organism (2) Acute exacerbation of chronic obstructive pulmonary disease (COPD): Status: Acute Category: Medical Code(s): J44.1 - Chronic obstructive pulmonary disease with (acute) exacerbation Plan #COPD exacerbation: #Community-acquired pneumonia: 66-year-old smoker carries a diagnosis of COPD. Not using any scheduled inhalers at baseline. Episode of hypotension and hypoxia: Improved after receiving fluid bolus and Narcan in the ED. L2 compression fracture. Chest x-ray reviewed, bilateral increased vascular congestion along with right lower lobe airspace disease/atelectasis. Echo from August EF of 35%. Patient was initiated on DuoNebs every 6hrs, methylprednisolone and ceftriaxone azithromycin. Cardiology following for awaiting repeat echocardiogram. Initial examination mild respiratory distress. Saturating 98% on 4 L nasal cannula, weaned to 2 L with saturations maintained at 90% above. Very minimal wheezing on auscultation. Interval update: Continues to remain on 2 L nasal cannula. Admits improving respiratory status. Auscultation improved. Denies any worsening productive phlegm. Complaining urinary retention awaiting MRI given his vertebral fracture. Cardiology following -received 40 IV Lasix yesterday. Plan: -COntinue Trelegy 100 inhaler -Continue DuoNebs every 6 hours on as-needed basis -Continue ceftriaxone and azithromycin, can be weaned to Augmentin to complete a total of 5-day course upon discharge -Incentive spirometer #Thank you for involving pulmonary in this patient care. We will continue to follow.
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
[2022-05-16 12:00] VITALS: BP 136/66; PULSE 86; RESP 16; TEMP 36.5; O2SAT 97
--- NOTE | 2022-05-16 14:20 | PC.NURSE ---
Dr. Hwang paged at this time regarding urine retention on patient. Patient's abdomen is distended, bladder hard to palpation. Bladder scanner measuring greater then 465ml.
--- NOTE | 2022-05-16 15:28 | PC.NURSE ---
Spoke with Dr. Hwang at this time, regarding patient status. Patient okay to discharge after mcdonald insertion.
--- NOTE | 2022-05-16 15:40 | PC.NURSE ---
Patient voices that he does not want a mcdonald inserted, patient requests warm water to drink. Will continue to monitor patient output, educated patient that a mcdonald may be necessary due to drain his bladder. Patient verbalized understanding. Pending discharge.
--- NOTE | 2022-05-16 16:10 | PC.NURSE ---
Called to give report but no answer at facility. Will call again.
--- NOTE | 2022-05-16 16:17 | PC.NURSE ---
Called [facility] but disconnected in midde of report
--- NOTE | 2022-05-16 16:27 | PC.NURSE ---
Patient was able to void adequately. Patient refuses mcdonald catheter. Patient cleaned up, linens changed, IV discontinued for transport back to [facility].
[2022-05-16 16:31] VITALS: BP 127/71; PULSE 91; RESP 20; TEMP 36.8; O2SAT 89
--- NOTE | 2022-05-16 18:14 | PC.NURSE ---
Called Dr. Caballero office twice [phone] and [phone] and left a message to radiology receptionist personnel to ask Dr. Hwang to call me back at [phone]. Dr. Hwang has not called back so I called the deputy fire marshal AND PAGED AT [phone].
--- NOTE | 2022-05-16 18:17 | PC.NURSE ---
Spoke to Dr. Hwang who stated trelegy inhaler 1 puff once a day for two weeks.
--- NOTE | 2022-05-17 14:15 | CARE MANAGER ---
[facility] They state patient is doing well and denies any questions or concerns at this time. RHIANNON Hayward
== END 2022-05-16 17:56 | disposition short-term general hospital (02) | DRG 551 ==
LOC: ER 15:58 → 2ND 17:09
PROVIDERS: Physician Assistant; Admitting Provider Internal Medicine Adolescent Medicine; Emergency Provider Emergency Medicine; PCP Emergency Medicine; Visit Provider Emergency Medicine
DX: S32.020A Wedge compression fracture of second lumbar vertebra, initial encounter for closed fracture (principal); J18.9 Pneumonia, unspecified organism; J96.01 Acute respiratory failure with hypoxia; S12.390A Other displaced fracture of fourth cervical vertebra, initial encounter for closed fracture; J44.1 Chronic obstructive pulmonary disease with (acute) exacerbation; J44.0 Chronic obstructive pulmonary disease with (acute) lower respiratory infection; R33.8 Other retention of urine; E87.5 Hyperkalemia; I25.5 Ischemic cardiomyopathy; Z89.512 Acquired absence of left leg below knee; Z89.511 Acquired absence of right leg below knee; I10 Essential (primary) hypertension; I25.118 Atherosclerotic heart disease of native coronary artery with other forms of angina pectoris; E78.5 Hyperlipidemia, unspecified; I48.0 Paroxysmal atrial fibrillation; I65.23 Occlusion and stenosis of bilateral carotid arteries; V00.811A Fall from moving wheelchair (powered), initial encounter; I65.29 Occlusion and stenosis of unspecified carotid artery; Z86.73 Personal history of transient ischemic attack (TIA), and cerebral infarction without residual deficits; Z79.01 Long term (current) use of anticoagulants; D64.89 Other specified anemias; I95.9 Hypotension, unspecified; F17.210 Nicotine dependence, cigarettes, uncomplicated; Z95.5 Presence of coronary angioplasty implant and graft; I25.119 Atherosclerotic heart disease of native coronary artery with unspecified angina pectoris; I73.9 Peripheral vascular disease, unspecified
CPT/HCPCS: 36415; 70450; 71045; 72131; 72148; 72170; 76376; 80048; 81001; 82803; 83605; 83880; 84153; 84484; 85025; 87040; 93005; 93306; 94640; 99285; C9803; J0456; J0696; J2310; J2405; U0003; U0005

== ENCOUNTER → 2022-05-29 15:12 | Outpatient (POV) | payer MEDICARE, MEDICAID, SELFPAY ==
[2022-05-29 15:32] VITALS: BP 121/72; PULSE 89; RESP 18; TEMP 36.9; O2SAT 96; BMI 23.6
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
== END ==
PROVIDERS: Visit Provider Nurse Practitioner Family
DX: S32.040A Wedge compression fracture of fourth lumbar vertebra, initial encounter for closed fracture (principal); Z72.0 Tobacco use
CPT/HCPCS: 99202; G0463

== ENCOUNTER 2022-06-23 06:56 | Day surgery (SDC) | payer MEDICARE, MEDICAID, SELFPAY ==
[2022-06-20 12:30] VITALS: BMI 61.5
[2022-06-23 07:33] VITALS: BP 145/72; PULSE 79; RESP 18; TEMP 36.7; O2SAT 96
[2022-06-23 08:05] LABS: Basophils # 0.1 K/mm3 (0-0.2); Basophils % 0.9 % (0.1-2.0); Eosinophils # 0.2 K/mm3 (0.0-0.4); Eosinophils % 3.5 % (0.1-12.0); Hematocrit 35.7 % (42.0-52.0); Hemoglobin 11.2 g/dL (14.1-18.0); Lymphocytes % 31.9 % (10-50); Mean Corpuscular HGB Conc 31.5 g/dL (31.8-35.4); Mean Corpuscular Volume 92.1 fl (80-94); Mean Platelet Volume 8.8 fl (7.4-10.4); Monocytes # 0.6 K/mm3 (0.1-1.0); Monocytes % 9.4 % (1.7-9.3); Neutrophils # 3.5 K/mm3 (1.8-7.8); Neutrophils % 54.3 % (37.0-80.0); Platelet Count 329 K/mm3 (142-424); Red Blood Count 3.87 M/mm3 (4.60-6.20); Red Cell Distribution Width 14.5 % (11.5-17.5); White Blood Count 6.4 K/mm3 (4.8-10.8)
[2022-06-23 08:10] LABS: Blood Urea Nitrogen 9 mg/dl (9-20); Calcium 9.4 mg/dl (8.4-10.2); Carbon Dioxide 28 mmol/L (22.0-30.0); Chloride 102 mmol/L (98-107); Creatinine Clearance Estimated -5 mL/min (50-200); Estimated Glomerular Filt Rate 166 ml/min (>60); GFR (African American) 201 ML/MIN (>60); Glucose 93 mg/dl (74-100); Sodium 142 mmol/L (136-145)
--- NOTE | 2022-06-23 09:11 | SUR.PREOP ---
Pt progress number given to shelter staff member with pt, verbalized understanding of system.
--- NOTE | 2022-06-23 09:35 | EXP.ANES.CKL ---
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 side Left arm pain PAF (paroxysmal atrial fibrillation) Peripheral arterial disease Peripheral vascular disease, unspecified Pneumonia Protein calorie malnutrition Transient cerebral ischemic attack, unspecified Vision changes Surgical History History of heart artery stent Family History Other Myocardial infarction acute Social History Smoking Status: Current every day smoker tobacco type: cigarettes packs per day: 1 alcohol intake: never substance use type: denies use current occupational status: disabled Travel in the last 8 weeks: None household members: significant other housing: apartment current occupational exposures/hazards: No caffeine: Yes [facility] Anesthesia Checklist Patient Identification Patient Identification: Arm Band Structural Data Admitted From: Long-term Nursing Facility Planned Operative Procedure/s: L4 Kyphoplasty Consent for Planned Operative Procedure(s) Verified: Yes Verified Documents: Surgical Consent and History and Physical NPO Status Verified Time NPO: 00:00 Additional verifications Anesthesia Reactions: No Hx Blood Transfusions: No Blood Transfusion Reaction: No Airway Assessment C-Spine Mobility Assessed: Yes TMJ Mobility Assessed: Yes Dentition: Poor Dentition Neurological Assessment Level of Consciousness: Awake and Alert Anesthesia Plan Anesthesia Risk discussed: Yes Anesthesia Plan: Verified ASA Class: IV Anesthesia Type: MAC
[2022-06-23 10:01] VITALS: BP 141/65; PULSE 99; RESP 15; TEMP 36.4; O2SAT 94
[2022-06-23 10:16] VITALS: BP 133/79; PULSE 90; RESP 16; O2SAT 94
--- NOTE | 2022-06-23 10:19 | P.OP_ITS ---
Date of procedure: 06/23/22 Pre-op Diagnosis:: L4 compression fracture Post-op Diagnosis:: Same Procedure performed:: L4 kyphoplasty Surgeon:: Fausto Renner MD WEB SITE DEVELOPER:: Marquise Aaron Anesthesia: MAC Estimated blood loss (mL): 5 Clinical Note:: This patient is a pleasant 66-year-old white male who we are seeing for low back pain. He is in a wheelchair and has bilateral AKA. He fell out of his wheelchair and sustained a subacute mild compression fracture of L4. He does h ave a history of osteoporosis. He is having increasing pain over the L4 vertebral body. We will plan on L4 kyphoplasty today to help him with his pain symptoms. Operative findings:: None Operative note:: Informed consent was obtained and risks and benefits of the procedure was explained to the patient. Patient was taken to the OR and was placed prone on the procedure table. The patient was prepped and draped in sterile fashion. I used 2 C arms for AP and lateral view of the L4 vertebral body. The skin and subcutaneous tissues were anesthetized using lidocaine. Bone access trochars were placed through the LEFT and RIGHT pedicle and advanced into the vertebral body. After accessing the vertebral body a balloon was inserted first on the LEFT side followed by the RIGHT side with approximately 3 mL of contrast placed in each balloon with good insufflation. After adequate spread of contrast through the balloon, the balloons were deflated and cement was introduced first on the LEFT side with placement of approximately 3-1/2 mL of cement with good spread throughout the vertebral body and then on the RIGHT side was approximately 3 1/2 mL cement with good spread throughout the vertebral body. There was no extrusion of cement through the lateral dennis, anterior or posterior dennis. Also no extrusion through superior or inferior dennis. The bone access trochars were removed and dressing was placed. The patient was taken back to recovery in stable condition. He had good resolution of her back pain 5 minutes after the procedure. He tolerated the procedure well with no complications and was discharged home neurologically intact. Condition: stable Disposition: PACU Complications:: None
[2022-06-23 10:31] VITALS: BP 144/75; PULSE 88; RESP 16; O2SAT 94
[2022-06-23 11:01] VITALS: BP 138/67; PULSE 87; RESP 16; O2SAT 95
[2022-06-23 11:13] VITALS: BP 126/75; PULSE 88; RESP 16; O2SAT 93
== END 2022-06-23 11:13 | disposition home or self-care (01) ==
PROVIDERS: PCP Internal Medicine Cardiovascular Disease; Visit Provider Anesthesiology
DX: Z72.0 Tobacco use; Z79.899 Other long term (current) drug therapy; M80.88XA Other osteoporosis with current pathological fracture, vertebra(e), initial encounter for fracture
CPT/HCPCS: 22514; 80048; 85025; 96374; J2704; J3370; Q9966

== ENCOUNTER → 2022-07-10 12:56 | Outpatient (POV) | payer MEDICARE, MEDICAID, SELFPAY ==
[2022-07-10 13:23] VITALS: BP 133/74; PULSE 87; RESP 18; O2SAT 92; BMI 24.5
--- NOTE | 2022-07-10 13:43 | EXP.PAIN.SOA ---
[facility] Pain Management SOAP Note Subjective:: ForPatient is a pleasant 67-year-old male who presents today for follow-up of a kyphoplasty on 06/23/2022. We are currently treating the patient for wedge compression fracture of L4 vertebra, status post kyphoplasty. Today the patient rates his pain a 1 out of 10. Patient states that he has had 100% relief of his pain symptoms following this procedure and denies any additional problems. Patient states he has had some itching around the incision sites however it is been very minimal. Patient denies any new trauma or injury. Patient ambulates via motorized wheelchair and has bilateral below the knee amputations. Patient previously had a fall out of his chair resulting in the L4 compression fracture. Patient does have a history of osteoporosis. Patient states he does take [id number] Tylenol and ibuprofen as needed to help with the pain as well as a cream that he gets at the long-term. Patient is managed with gabapentin 400 mg 3 times a day from an outside provider. Patient denies any side effects from this medication. His Nelson is [phone]. It has been reviewed and appropriate. Review of Systems: General: No recent weight changes, no fever, no sleep disturbances Respiratory: No cough, no shortness of air, no recurring pulmonary infections Cardiovascular/peripheral vascular: No chest pain, no palpitations, no edema, no shortness of breath Gastrointestinal: No new onset incontinence, normal bowel movements reported Genitourinary: No new onset incontinence Musculoskeletal: Low back pain Psychiatric: [Normal mood/affect] Neurological: [Denies weakness in extremities], [denies balance issues] Objective:: Physical Exam: General: Alert and oriented x3, no acute distress, pleasant and cooperative Lungs: Respirations even and unlabored, symmetrical chest expansion Eyes: PERRL Musculoskeletal: Flexion and extension of lumbar [spine] somewhat guarded secondary to pain, [antalgic gait noted] Neurological: Speech clear, no gross sensory deficit Assessment:: Wedge compression fracture of L4 vertebra, status post kyphoplasty Plan:: Patient has had significant improvement of his pain symptoms following his kyphoplasty procedure. At this time the patient is doing well. He is 2 incision sites have healed with no erythema noted at today's visit. We will follow-up with the patient in 1 month for reevaluation of symptoms and follow-up. Patient has been instructed to contact the clinic with any concerns before the next appointment. Dr. Renner has reviewed this note and agrees with this plan of care. This note was dictated using voice recognition software and make contain errors or omissions. [facility] Medical History (Updated 06/23/22 @ 07:54 by Ashleigh Parker RN) Abnormal EKG Abnormal stress test Acute exacerbation of chronic obstructive pulmonary disease (COPD) Below-knee amputation of left lower extremity Below-knee amputation of right lower extremity Cardiomyopathy, ischemic Carotid artery stenosis COPD (chronic obstructive pulmonary disease) Dyspnea Hemiplegia and hemiparesis following cerebral infarction affecting left non-dominant side Left arm pain PAF (paroxysmal atrial fibrillation) Peripheral arterial disease Peripheral vascular disease, unspecified Pneumonia Protein calorie malnutrition Transient cerebral ischemic attack, unspecified Vision changes Surgical History History of heart artery stent Family History Other Myocardial infarction acute Social History Smoking Status: Current every day smoker tobacco type: cigarettes packs per day: 1 alcohol intake: never substance use type: denies use current occupational status: disabled Travel in the last 8 weeks: None household members: significant other housing: apartment current
== END ==
PROVIDERS: PCP Internal Medicine Adolescent Medicine; Visit Provider Nurse Practitioner Family
DX: S32.040A Wedge compression fracture of fourth lumbar vertebra, initial encounter for closed fracture (principal)
CPT/HCPCS: 99212; G0463

== ENCOUNTER → 2022-08-08 11:18 | Outpatient (POV) | payer MEDICARE, MEDICAID, SELFPAY ==
[2022-08-08 12:09] VITALS: BP 152/79; PULSE 82; RESP 18; O2SAT 98; BMI 20.9
== END ==
PROVIDERS: PCP Nurse Practitioner Family; Visit Provider Nurse Anesthetist, Certified Registered
DX: M51.16 Intervertebral disc disorders with radiculopathy, lumbar region (principal); F17.210 Nicotine dependence, cigarettes, uncomplicated
CPT/HCPCS: 99212; G0463

== ENCOUNTER → 2022-08-08 12:39 | Outpatient (CLI) | payer MEDICARE, MEDICAID, SELFPAY ==
--- NOTE | 2022-08-08 12:43 | EXP.PAIN.SOA ---
[facility] Pain Management SOAP Note Subjective:: This patient is a pleasant 67-year-old male that comes our office today with complaint of severe low back pain. Also right hip radicular symptoms. Patient is status post kyphoplasty at L4 June 23, 2022. Patient reports complete relief from his low back pain following kyphoplasty. Patient informs me today that this is a very similar pain prior to his kyphoplasty. Patient did suffer a fall prior to his L4 vertebral fracture. He denies any fall or trauma today. Patient is a double amputee of his lower extremities. Patient is being managed from his PCP with gabapentin 400 mg 1 p.o. 3 times daily. Patient states he has been unable to perform simple duties that he typically can do without pain recently. Objective:: Patient is awake alert [place] x3. No acute distress. Flexion-extension lumbar spine guarded secondary to pain. Deep tendon reflexes upper extremities normal. Motor strength upper extremities normal. Patient is wheelchair-bound. Assessment:: Degenerative disc disease lumbar spine multilevels. Lumbar radicular symptoms. Status post L4 kyphoplasty. Plan:: I suggest we send the patient for lumbar x-ray to rule out additional vertebral fracture. We will follow-up with the patient by phone after reviewing the x-ray. Also, I discussed if no vertebral fracture patient may need epidural steroid injection. Patient is taking blood thinner at this time. [facility] Disclaimer: The information contained in this section may have been updated after the patient was seen, as this information can be updated by other users. Medical History Abnormal EKG Abnormal stress test Acute exacerbation of chronic obstructive pulmonary disease (COPD) Below-knee amputation of left lower extremity Below-knee amputation of right lower extremity Cardiomyopathy, ischemic Carotid artery stenosis COPD (chronic obstructive pulmonary disease) Dyspnea Hemiplegia and hemiparesis following cerebral infarction affecting left non-dominant side Left arm pain PAF (paroxysmal atrial fibrillation) Peripheral arterial disease Peripheral vascular disease, unspecified Pneumonia Protein calorie malnutrition Transient cerebral ischemic attack, unspecified Vision changes Surgical History History of heart artery stent Family History Other Myocardial infarction acute Social History (Reviewed 08/08/22 @ 12:11 by CHEL Shea Smoking Status: Current every day smoker tobacco type: cigarettes packs per day: 1 alcohol intake: never substance use type: denies use current occupational status: disabled Travel in the last 8 weeks: None household members: significant other housing: apartment current occupational exposures/hazards: No caffeine: Yes
--- NOTE | 2022-08-08 12:49 | XR_ITS ---
FINAL REPORT CLINICAL HISTORY: BACK PAIN COMPARISON: MRI dated May 15, 2022 FINDINGS: LUMBAR SPINE 5 views of the lumbar spine were obtained. There are stable compression fractures of L1, L2 and L4, favor chronic. There are postoperative changes from L4 kyphoplasty. The vertebral alignment is normal. Disc spaces are preserved. There are moderate vascular calcifications. There is a right iliac artery vascular stent. IMPRESSION: No acute bony abnormality. Stable compression fractures, favor chronic. Reviewed, Interpreted and Dictated by Sarkis Carvalho III, MD Transcribed by Xuan Ernandez Authenticated and [facility]
== END ==
PROVIDERS: PCP Nurse Practitioner Family; Visit Provider Nurse Anesthetist, Certified Registered
DX: M54.50 Low back pain, unspecified (principal)
CPT/HCPCS: 72110; 99212; G0463

== ENCOUNTER → 2022-08-23 13:57 | Outpatient (POV) | payer MEDICARE, MEDICAID, SELFPAY ==
[2022-08-23 15:32] VITALS: BP 104/62; PULSE 71; RESP 18; O2SAT 97; BMI 66.2
--- NOTE | 2022-08-23 16:03 | EXP.PAIN.SOA ---
[facility] Pain Management SOAP Note Subjective:: Patient is a pleasant 67-year-old male who presents today for follow-up of lumbar x-ray on 08/08/2022. We are currently treating the patient for low back pain, right hip pain, compression fracture status post kyphoplasty at L4. Today the patient states his pain is 6 out of 10. Patient denies any new injury or trauma. Patient denies any change to location or type of pain he experiences. Patient does state the pain is all in his low back with some radiating symptoms along the right side. Patient is a double amputee of his lower extremities. He does arrive today in a motorized wheelchair. Patient does live at a shelter and is managed with gabapentin 400 mg 3 times daily from his primary care provider. Patient states he does not have any side effects from this medication. He states this medication does help some of his pain symptoms. Patient states he does use Tylenol however only minimal relief comes from this medication. Patient does have a significant heart history and did have 4 stents placed. Patient is on Plavix and Eliquis and states he is experiencing worsening pain with increased activity. Patient does describes this as a numbing, achy sensation. His Nelson is [phone]. Its been reviewed and appropriate. Review of Systems: General: No recent weight changes, no fever, no sleep disturbances Respiratory: No cough, no shortness of air, no recurring pulmonary infections Cardiovascular/peripheral vascular: No chest pain, no palpitations, no edema, no shortness of breath Gastrointestinal: No new onset incontinence, normal bowel movements reported Genitourinary: No new onset incontinence Musculoskeletal: Low back pain Psychiatric: [Normal mood/affect] Neurological: [Denies weakness in extremities], [denies balance issues] Objective:: Physical Exam: General: Alert and oriented x3, no acute distress, pleasant and cooperative Lungs: Respirations even and unlabored, symmetrical chest expansion Eyes: PERRL Musculoskeletal: Flexion and extension of lumbar [spine] somewhat guarded secondary to pain, [antalgic gait noted] Neurological: Speech clear, no gross sensory deficit Assessment:: Low back pain, right hip pain, compression fracture status post kyphoplasty at L4 Plan:: Patient is experiencing significant pain in his low back with some radiating symptoms into his right leg. Patient does have limited range of motion of his lumbar spine. I have discussed with the patient that he may benefit from a diagnostic lumbar epidural steroid injection. Risk and benefits were discussed with the patient. He would like to proceed forward with this plan of care. Patient is on Plavix and Eliquis prescribed from Dr. Darnell's and Dr. Pizarro of [place]. We will need to contact these offices to confirm that he can come off his blood thinners prior to this injection. I will also order the patient a compounding cream. We will schedule the patient for a diagnostic LESI L4-L5. Patient has been instructed to contact the clinic with any concerns before the next appointment. Dr. Rnener has reviewed this note and agrees with this plan of care. This note was dictated using voice recognition software and make contain errors or omissions. [facility] Disclaimer: The information contained in this section may have been updated after the patient was seen, as this information can be updated by other users. Medical History Abnormal EKG Abnormal stress test Acute exacerbation of chronic obstructive pulmonary disease (COPD) Below-knee amputation of left lower extremity Below-knee amputation of right lower extremity Cardiomyopathy, ischemic Carotid artery stenosis COPD (chronic obstructive pulmonary disease) Dyspnea Hemiplegia and hemiparesis following cerebral infarction affecting left non-dominant side Left arm pain PAF (paroxysmal atrial fibrillation) Peripheral arterial
== END ==
PROVIDERS: Visit Provider Nurse Practitioner Family
DX: S32.040A Wedge compression fracture of fourth lumbar vertebra, initial encounter for closed fracture (principal); M25.551 Pain in right hip; M54.50 Low back pain, unspecified
CPT/HCPCS: 99212; G0463

== ENCOUNTER 2022-09-05 10:21 | Day surgery (SDC) | payer MEDICARE, MEDICAID, SELFPAY ==
[2022-09-05 10:35] VITALS: BP 133/68; PULSE 89; RESP 18; TEMP 36.7; O2SAT 96; BMI 23.8
[2022-09-05 10:50] VITALS: BP 145/64; PULSE 81; RESP 18; O2SAT 96
--- NOTE | 2022-09-05 10:53 | P.PCN_ITS ---
Procedure Date: 09/05/22 Time: 10:40 Anesthesiologist:: Ernesto Akhtar CRNA Complications:: None Pre-procedure Diagnosis:: Degenerative disc disease lumbar spine multilevels. Lumbar radiculopathy. Double amputee loweer limbs. Post-procedure Diagnosis:: Same Indications for Procedure:: This patient is a wheelchair-bound double amputee lower limbs residential patient that comes our clinic today for lumbar epidural steroid injection at L4- 5 level. Patient describes low back pain as constant, dull, aching. He speaks of low lumbar pain off the midline bilaterally. He rates his pain 8/10. Procedure Details:: Procedure: Lumbar epidural steroid injection under fluoroscopy Informed consent was obtained and the risks and benefits of the procedure were explained to the patient. The patient was taken to the procedure room and noninvasive monitors placed, including noninvasive blood pressure cuff and pulse oximeter. The back was viewed using C-arm Fluoroscopy and prepped using Chloraprep as a cleansing solution and the L4-L5 interspace was palpated. Skin and subcutaneous tissues were anesthetized using lidocaine 1.5% and a 25-gauge needle. After this, an 18-gauge Touhy epidural needle was placed into the L4-L5 interspace and advanced using fluoroscopic guidance and loss of resistance to air until the epidural space was encountered. After confirmation of needle placement in the epidural space, with dye, a solution containing normal saline, 3 mL and Depo-Medrol 80 mg were incrementally injected into the lumbar epidural space. The patient tolerated the procedure well with no complications. The patient was observed in the Pain Clinic and then discharged home neurologically intact. Plan and Disposition:: Patient was discharged without incident.
== END 2022-09-05 10:50 | disposition home or self-care (01) ==
LOC: SC.PAINP 10:22
PROVIDERS: PCP Nurse Practitioner Family; Visit Provider Nurse Anesthetist, Certified Registered
DX: M51.16 Intervertebral disc disorders with radiculopathy, lumbar region (principal); Z89.512 Acquired absence of left leg below knee
CPT/HCPCS: 62323; J1040

== ENCOUNTER → 2022-09-20 13:08 | Outpatient (POV) | payer MEDICARE, MEDICAID, SELFPAY ==
[2022-09-20 13:17] VITALS: BP 149/79; PULSE 86; RESP 20; BMI 23.8
--- NOTE | 2022-09-20 13:17 | EXP.PAIN.SOA ---
[facility] Pain Management SOAP Note Subjective:: Patient is a pleasant 67-year-old male who presents today for follow-up of lumbar epidural steroid injection of L4-L5 on 09/05/2022. We are currently treating the patient for low back pain, right hip pain, compression fracture status post kyphoplasty L4. Today he rates his pain a 0 out of 10. Patient states that he had 100% relief of his previous back pain that he was experiencing with some radiating symptoms into his right side. Patient is a double amputee of his lower extremities. He does use a motorized wheelchair for ambulation and lives at a assisted. Patient is managed with gabapentin 400 mg 3 times a day from his primary care doctor. Patient denies any side effects from this medication. Patient does use Tylenol in addition however he only states minimal relief. Patient does have a cardiac history with stents in the past. He is on Eliquis and Plavix. Patient was recently prescribed compounding cream that he states provides significant relief of his symptoms. He is requesting a refill at today's visit. His Nelson is [id number]. Its been reviewed and appropriate. Review of Systems: General: No recent weight changes, no fever, no sleep disturbances Respiratory: No cough, no shortness of air, no recurring pulmonary infections Cardiovascular/peripheral vascular: No chest pain, no palpitations, no edema, no shortness of breath Gastrointestinal: No new onset incontinence, normal bowel movements reported Genitourinary: No new onset incontinence Musculoskeletal: Low back pain Psychiatric: [Normal mood/affect] Neurological: [Denies weakness in extremities], [denies balance issues] Objective:: Physical Exam: General: Alert and oriented x3, no acute distress, pleasant and cooperative Lungs: Respirations even and unlabored, symmetrical chest expansion Eyes: PERRL Musculoskeletal: Flexion and extension of lumbar [spine] somewhat guarded secondary to pain, [antalgic gait noted] Neurological: Speech clear, no gross sensory deficit Assessment:: Low back pain, right hip pain, compression fracture status post kyphoplasty at L4 Plan:: Patient has had significant improvement of his low back pain symptoms following his lumbar epidural injection. Patient does not require any additional injective therapy at this time. Patient will return to clinic in 1 month for reevaluation of symptoms and follow-up. Patient has been instructed to contact the clinic with any concerns before the next appointment. Dr. Renner has reviewed this note and agrees with this plan of care. This note was dictated using voice recognition software and make contain errors or omissions. [facility] Disclaimer: The information contained in this section may have been updated after the patient was seen, as this information can be updated by other users. Medical History Abnormal EKG Abnormal stress test Acute exacerbation of chronic obstructive pulmonary disease (COPD) Below-knee amputation of left lower extremity Below-knee amputation of right lower extremity Cardiomyopathy, ischemic Carotid artery stenosis COPD (chronic obstructive pulmonary disease) Dyspnea Hemiplegia and hemiparesis following cerebral infarction affecting left non-dominant side Left arm pain PAF (paroxysmal atrial fibrillation) Peripheral arterial disease Peripheral vascular disease, unspecified Pneumonia Protein calorie malnutrition Transient cerebral ischemic attack, unspecified Vision changes Surgical History History of heart artery stent Family History Other Myocardial infarction acute Social History Smoking Status: Current every day smoker tobacco type: cigarettes packs per day: 1 alcohol intake: never substance use type:
== END ==
PROVIDERS: Visit Provider Nurse Practitioner Family
DX: M54.50 Low back pain, unspecified (principal); M25.551 Pain in right hip
CPT/HCPCS: 99212; G0463

== ENCOUNTER → 2022-10-19 14:12 | Outpatient (CLI) | payer MEDICARE, MEDICAID, SELFPAY | PROVIDERS: PCP Nurse Practitioner Family; Visit Provider Anesthesiology | DX: Z00.00 Encounter for general adult medical examination without abnormal findings (principal) ==

== ENCOUNTER → 2022-10-19 14:19 | Outpatient (POV) | payer MEDICARE, MEDICAID, SELFPAY ==
--- NOTE | 2022-10-19 14:54 | EXP.PAIN.SOA ---
[facility] Pain Management SOAP Note Subjective:: Patient is a pleasant 67-year-old male who presents today for 1 month follow-up. We are currently treating the patient for degenerative disc disease of lumbar spine multilevels with lumbar radiculopathy symptoms, double amputee lower limbs, low back pain, right hip pain, compression fracture status post kyphoplasty L4. Patient rates his pain a 4 out of 10 today. Patient denies any new trauma or injury. He does state that this morning he woke up and when he went to get out of he did have cramping that went from his low back up to his left shoulder. Patient states this is not constant and it only happens randomly. He states he did take Tylenol and it was relieved. He states right now that he is not having that cramping sensation. Patient did have a lumbar epidural steroid injection at L4-L5 on 09/05/2022 and he states this has still provided significant relief. 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 He does live at the assisted and is managed with gabapentin 400 mg 3 times a day from his primary care doctor. Patient denies any side effects from this medication. He is on Eliquis and Plavix. Patient has also been prescribed compounding cream that does provide additional relief. His Nelson is [id number]. Its been reviewed and appropriate. Review of Systems: General: No recent weight changes, no fever, no sleep disturbances Respiratory: No cough, no shortness of air, no recurring pulmonary infections Cardiovascular/peripheral vascular: No chest pain, no palpitations, no edema, no shortness of breath Gastrointestinal: No new onset incontinence, normal bowel movements reported Genitourinary: No new onset incontinence Musculoskeletal: Low back pain Psychiatric: [Normal mood/affect] Neurological: [Denies weakness in extremities], [denies balance issues] Objective:: Physical Exam: General: Alert and oriented x3, no acute distress, pleasant and cooperative Lungs: Respirations even and unlabored, symmetrical chest expansion Eyes: PERRL Musculoskeletal: Flexion and extension of lumbar [spine] somewhat guarded secondary to pain, [antalgic gait noted] Neurological: Speech clear, no gross sensory deficit Assessment:: Degenerative disc disease of lumbar spine with lumbar radiculopathy symptoms, double amputee lower limbs low back pain, right hip pain, compression fracture status post kyphoplasty L4. Plan:: Patient has continued to have good relief of his back symptoms following his last lumbar epidural steroid injection and does not require any additional injective therapy at this time. Patient will return to clinic in 1 month for reevaluation of symptoms and plan of care. Patient has been instructed to contact the clinic with any concerns before the next appointment. Dr. Renner has reviewed this note and agrees with this plan of care. This note was dictated using voice recognition software and make contain errors or omissions. [facility] Disclaimer: The information contained in this section may have been updated after the patient was seen, as this information can be updated by other users. 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
[2022-10-19 15:17] VITALS: BP 126/70; PULSE 77; RESP 18; O2SAT 97; BMI 37.2
== END ==
PROVIDERS: PCP Nurse Practitioner Family; Visit Provider Nurse Practitioner Family
DX: M51.16 Intervertebral disc disorders with radiculopathy, lumbar region (principal); M25.551 Pain in right hip; Z89.611 Acquired absence of right leg above knee; Z89.612 Acquired absence of left leg above knee
CPT/HCPCS: 99212; G0463

== ENCOUNTER → 2022-11-20 09:02 | Outpatient (POV) | payer MEDICARE, MEDICAID, SELFPAY ==
[2022-11-20 09:21] VITALS: BP 146/78; PULSE 101; RESP 18; O2SAT 97; BMI 24.2
--- NOTE | 2022-11-20 09:25 | EXP.PAIN.SOA ---
[facility] Pain Management SOAP Note Subjective:: Patient is a pleasant 67-year-old male who presents today for follow-up.? We are currently treating the patient for degenerative disc disease of lumbar spine multilevels with lumbar radiculopathy symptoms, double amputee lower limbs, low back pain, right hip pain, compression fracture status post kyphoplasty L4.? Patient rates his pain a 10 out of 10 today.? Patient denies any new trauma or injury.? He does state that he is having low back pain along the right side. He does describe this as a aching, throbbing that is worse with certain movements such as turning. He also states he has additional pain when he coughs or takes a deep breath. He has tried taking Tylenol however he says it does nothing for it. He has also been using Biofreeze on that area however he states it only eases the pain some. He has had lumbar epidural steroid injection at L4-L5 on 09/05/2022 that did provide significant relief. 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 He does live at the care home and is managed with gabapentin 400 mg 3 times a day from his primary care doctor.? Patient denies any side effects from this medication.? He is on Eliquis and Plavix.? Patient has also been prescribed compounding cream that does provide additional relief.? His Nelson is [id number].? Its been reviewed and appropriate. Review of Systems: General: No recent weight changes, no fever, no sleep disturbances Respiratory: No cough, no shortness of air, no recurring pulmonary infections Cardiovascular/peripheral vascular: No chest pain, no palpitations, no edema, no shortness of breath Gastrointestinal: No new onset incontinence, normal bowel movements reported Genitourinary: No new onset incontinence Musculoskeletal: Right low back pain Psychiatric: [Normal mood/affect] Neurological: [Denies weakness in extremities], [denies balance issues] Objective:: Physical Exam: General: Alert and oriented x3, no acute distress, pleasant and cooperative Lungs: Respirations even and unlabored, symmetrical chest expansion Eyes: PERRL Musculoskeletal: Flexion and extension of lumbar [spine] somewhat guarded secondary to pain, [antalgic gait noted] point tenderness noted at right lumbar paraspinous muscles Neurological: Speech clear, no gross sensory deficit Assessment:: Degenerative disc disease of lumbar spine with lumbar radiculopathy symptoms, double amputee lower limbs, low back pain, right hip pain, compression fracture status post kyphoplasty L4 Plan:: Patient is experiencing significant pain along his low back on the right side. Patient did have limited range of motion of his lumbar spine during today's visit along with point tenderness at his right lumbar paraspinous muscles. I have discussed with the patient that he may benefit from trigger point injections at this location in the future. I will order a chest x-ray related to his complaint of increased pain with coughing or deep breathing. I will also order the patient methocarbamol 750 mg at bedtime and provide a 2-week supply of this medication. I have counseled the patient to discontinue all other muscle relaxers while taking this medication. Patient will follow-up in the office following his x-ray imaging for reevaluation of symptoms and plan of care. Patient has been instructed to contact the clinic with any concerns before the next appointment. Dr. Renner has reviewed this note and agrees with this plan of care. This note was dictated using voice recognition software and make contain errors or omissions. [facility] Disclaimer: The information contained in this section may have been updated after the patient was seen, as this information can be updated by other users. Medical History Abnormal EKG Abnormal stress test Acute exacerbation of chronic obstructive pulmonary disease (COPD) B
== END | disposition home or self-care (01) ==
PROVIDERS: Visit Provider Nurse Practitioner Family
DX: M51.16 Intervertebral disc disorders with radiculopathy, lumbar region (principal); M25.551 Pain in right hip; Z89.612 Acquired absence of left leg above knee; Z89.611 Acquired absence of right leg above knee
CPT/HCPCS: 99212; G0463

== ENCOUNTER → 2022-11-20 09:32 | Outpatient (CLI) | payer MEDICARE, MEDICAID, SELFPAY ==
--- NOTE | 2022-11-20 09:44 | XR_ITS ---
FINAL REPORT TECHNIQUE: Chest PA & Lateral CLINICAL HISTORY: CHEST PAIN AND COUGH COMPARISON: April 2022 FINDINGS: 2 views of the chest were performed. The heart size is normal. The mediastinum is within normal limits. There is linear scarring in the lung bases. A calcified granuloma is seen in the left upper lobe. There are no pleural effusions. There is no pneumothorax. The bony thorax appears intact. IMPRESSION: No acute cardiopulmonary process. Reviewed, Interpreted and Dictated by Stoney Dahl MD Transcribed by Jonnathan Serrano Authenticated and [facility]
== END ==
PROVIDERS: PCP Nurse Practitioner Family; Visit Provider Nurse Practitioner Family
DX: R07.9 Chest pain, unspecified (principal); R05.9 Cough, unspecified
CPT/HCPCS: 71046; 99212; G0463

== ENCOUNTER 2023-01-26 22:33 | Emergency (ER) | payer MEDICARE, MEDICAID, SELFPAY ==
[2023-01-26 22:33] VITALS: BP 173/91; PULSE 88; RESP 16; TEMP 37.1; O2SAT 96; BMI 19.4
[2023-01-26 22:34] VITALS: BMI 22.1
--- NOTE | 2023-01-26 22:34 | CT_ITS ---
PROCEDURE INFORMATION: Exam: CT Cervical Spine Without Contrast Exam date and time: 01/26/2023 10:53 PM Age: 67 years old Clinical indication: Injury or trauma; Fall TECHNIQUE: Imaging protocol: Computed tomography of the cervical spine without contrast. Radiation optimization: All CT scans at this facility use at least one of these dose optimization techniques: automated exposure control; mA and/or kV adjustment per patient size (includes targeted exams where dose is matched to clinical indication); or iterative reconstruction. REPORTING DATA: Count of CT and Cardiac NM exams in prior 12 months: This patient has received 2 known CTs and 0 known cardiac nuclear medicine studies in the 12 months prior to the current study. COMPARISON: CT CERVICAL SPINE WO CON 06/12/2021 1:34 PM FINDINGS: Bones/joints: Significant disc space narrowing with disc bulge and uncovertebral spurring producing at least moderate spinal stenosis noted at the C3-C4, C4-C5, C5-C6 and C6-C7 disc levels. Mild degenerative changes noted at the atlantoaxial joint. No acute fracture or subluxation. Lungs: Lung apices are normal. Vasculature: Dense calcification present in the bilateral carotid arteries. Soft tissues: Unremarkable. IMPRESSION: Chronic osseous and atherosclerotic changes as described. No acute abnormality
--- NOTE | 2023-01-26 22:34 | CT_ITS ---
PROCEDURE INFORMATION: Exam: CT Lumbar Spine Without Contrast Exam date and time: 01/26/2023 10:58 PM Age: 67 years old Clinical indication: Injury or trauma; Fall TECHNIQUE: Imaging protocol: Computed tomography of the lumbar spine without contrast. Radiation optimization: All CT scans at this facility use at least one of these dose optimization techniques: automated exposure control; mA and/or kV adjustment per patient size (includes targeted exams where dose is matched to clinical indication); or iterative reconstruction. REPORTING DATA: Count of CT and Cardiac NM exams in prior 12 months: This patient has received 2 known CTs and 0 known cardiac nuclear medicine studies in the 12 months prior to the current study. COMPARISON: MR LUMBAR SPINE WO CON 05/15/2022 1:12 PM FINDINGS: Bones/joints: 4 lumbar type vertebral bodies. No acute fracture. Chronic superior endplate compression fractures of T12, L1, L3 and L4 vertebral bodies. Chronic L4 inferior endplate compression fracture. Post kyphoplasty changes of L3. No bony retropulsion. Stable alignment. No significant disc bulge or herniation. No severe spinal canal stenosis. No significant neural foraminal narrowing. Vasculature: Atherosclerotic calcification of aortoiliac, celiac, superior mesenteric arteries. Soft tissues: Unremarkable. IMPRESSION: No acute findings.
--- NOTE | 2023-01-26 22:34 | XR_ITS ---
PROCEDURE INFORMATION: Exam: XR Pelvis Exam date and time: 01/26/2023 10:36 PM Age: 67 years old Clinical indication: Injury or trauma; Fall TECHNIQUE: Imaging protocol: Radiologic exam of the pelvis. Views: 1 or 2 view. COMPARISON: CR XR PELVIS 1-2V 05/14/2022 11:13 AM FINDINGS: Bones/joints: Unremarkable. No acute fracture. Chronic kyphoplasty changes of L3 vertebral body. Suboptimally visualized sacrum and coccyx secondary to obscuration by body habitus. Soft tissues: Unremarkable. IMPRESSION: No acute findings.
--- NOTE | 2023-01-26 22:34 | XR_ITS ---
PROCEDURE INFORMATION: Exam: XR Chest Exam date and time: 01/26/2023 10:36 PM Age: 67 years old Clinical indication: Injury or trauma; Fall TECHNIQUE: Imaging protocol: Radiologic exam of the chest. Views: 1 view. COMPARISON: CR XR CHEST 2V 11/20/2022 10:03 AM FINDINGS: Lungs: Stable calcified nodule in left upper lobe. Otherwise clear lungs. No consolidation. Pleural spaces: Unremarkable. No pleural effusion. No pneumothorax. Heart/Mediastinum: Unremarkable. No cardiomegaly. Bones/joints: No acute findings. IMPRESSION: No acute findings.
--- NOTE | 2023-01-26 22:34 | CT_ITS ---
PROCEDURE INFORMATION: Exam: CT Head Without Contrast Exam date and time: 01/26/2023 10:51 PM Age: 67 years old Clinical indication: Injury or trauma; Fall TECHNIQUE: Imaging protocol: Computed tomography of the head without contrast. Radiation optimization: All CT scans at this facility use at least one of these dose optimization techniques: automated exposure control; mA and/or kV adjustment per patient size (includes targeted exams where dose is matched to clinical indication); or iterative reconstruction. REPORTING DATA: Count of CT and Cardiac NM exams in prior 12 months: This patient has received 2 known CTs and 0 known cardiac nuclear medicine studies in the 12 months prior to the current study. COMPARISON: CT HEAD/BRAIN WO CON 05/14/2022 10:50 AM FINDINGS: Brain: There is generalized cerebral atrophy. Large area of encephalomalacia occupies much of the right cerebrum compatible with old MCA territory infarcts. Small lacunar infarcts noted in the bilateral basal ganglia. No intracranial mass, hemorrhage or definite evidence of acute ischemia. Diffuse white matter hypoattenuation compatible with chronic microvascular ischemic changes. Cerebral ventricles: No ventriculomegaly. Paranasal sinuses: Visualized sinuses are unremarkable. No fluid levels. Mastoid air cells: Visualized mastoid air cells are well aerated. Bones/joints: Unremarkable. No acute fracture. Soft tissues: Unremarkable. Vasculature: Significant atherosclerotic calcification noted in the carotid siphons. IMPRESSION: Stable chronic findings, including evidence of old large right MCA territory infarct. No acute intracranial abnormality
--- NOTE | 2023-01-26 22:34 | CT_ITS ---
PROCEDURE INFORMATION: Exam: CT Thoracic Spine Without Contrast Exam date and time: 01/26/2023 10:55 PM Age: 67 years old Clinical indication: Injury or trauma; Fall TECHNIQUE: Imaging protocol: Computed tomography of the thoracic spine without contrast. Radiation optimization: All CT scans at this facility use at least one of these dose optimization techniques: automated exposure control; mA and/or kV adjustment per patient size (includes targeted exams where dose is matched to clinical indication); or iterative reconstruction. REPORTING DATA: Count of CT and Cardiac NM exams in prior 12 months: This patient has received 2 known CTs and 0 known cardiac nuclear medicine studies in the 12 months prior to the current study. COMPARISON: CT THORACIC SPINE WO CON 06/12/2021 1:38 PM FINDINGS: Bones/joints: No acute fracture. Again, chronic and stable T12 and L1 superior endplate compression fractures without obvious bony retropulsion. Multilevel degenerative disc and joint space changes most pronounced in T7/8 2 T10/11. Osteopenia. Stable alignment. No significant disc bulge or herniation. No severe spinal canal stenosis. No significant neural foraminal narrowing. Soft tissues: Unremarkable. Vasculature: Thoracic aortic atherosclerotic calcification. Lymph nodes: Calcified perihilar lymph nodes. IMPRESSION: No acute findings identified.
[2023-01-26 22:44] LABS: Basophils % 0.5 % (0.1-2.0); Eosinophils # 0.1 K/mm3 (0.0-0.4); Eosinophils % 2.2 % (0.1-12.0); Lymphocytes # 2.5 K/mm3 (0.7-4.5); Lymphocytes % 47.5 % (10-50); Mean Corpuscular HGB Conc 31.7 g/dL (31.8-35.4); Mean Corpuscular Hemoglobin 28.2 pg (27.0-31.2); Mean Platelet Volume 8.4 fl (7.4-10.4); Monocytes # 0.5 K/mm3 (0.1-1.0); Monocytes % 10.4 % (1.7-9.3); Neutrophils # 2.1 K/mm3 (1.8-7.8); Neutrophils % 39.5 % (37.0-80.0); Platelet Count 206 K/mm3 (142-424); White Blood Count 5.2 K/mm3 (4.8-10.8)
[2023-01-26 22:45] LABS: Chloride 104 mmol/L (98-107); Sodium 143 mmol/L (136-145)
[2023-01-26 22:46] LABS: Potassium 4.2 mmoL/L (3.5-5.1)
[2023-01-26 22:48] LABS: Alanine Aminotransferase 36 U/L (12-78); Albumin Level 3.8 g/dl (3.5-5.0); Alkaline Phosphatase 95 U/L (38-126); Anion Gap 13.2 mEq/L (5-15); Aspartate Amino Transferase 40 U/L (17-59); Blood Urea Nitrogen 20 mg/dl (9-20); Carbon Dioxide 30 mmol/L (22.0-30.0); Creatinine Clearance Estimated 57 mL/min (50-200); Estimated Glomerular Filt Rate 112 ml/min (>60); GFR (African American) 136 ML/MIN (>60); Globulin 3.7 g/dL (1.3-3.2); Total Protein,Serum 7.5 g/dl (6.3-8.2)
[2023-01-26 22:49] LABS: Bilirubin,Total 0.1 mg/dl (0.2-1.3); Calcium 8.6 mg/dl (8.4-10.2); Glucose 110 mg/dl (74-100)
--- NOTE | 2023-01-26 23:01 | PC.NURSE ---
patient back in room from [facility] at this time.
--- NOTE | 2023-01-26 23:19 | PC.NURSE ---
in room talking with patient at this time.
--- NOTE | 2023-01-26 23:22 | HMH.EDFALL ---
Discharge Plan Disposition Patient Disposition: Xfer [facility] Chief Complaint: Fall Prescriptions Prescriptions: No Action gabapentin 400 mg capsule 400 mg PO DAILY apixaban 5 mg tablet 5 mg PO BID Qty: 60 5RF melatonin 5 mg Tablet 5 mg PO HS PRN (Reason: Sleep) albuterol sulfate 90 mcg/actuation Hfa Aerosol Inhaler 2 puff INHALATION Q6H PRN (Reason: SOA) atorvastatin 80 mg tablet 80 mg PO HS cyclobenzaprine 10 mg tablet 10 mg PO TID sennosides [senna] 8.6 mg Tablet 8.6 mg PO SUMOWEFR cetirizine 10 mg Tablet 10 mg PO DAILY famotidine 20 mg tablet 20 mg PO BID mirtazapine 15 mg tablet 7.5 mg PO HS duloxetine 30 mg capsule,delayed release(DR/EC) 30 mg PO DAILY clopidogrel 75 mg tablet 75 mg PO DAILY Label Comments: TAKE 1 TABLET BY MOUTH ONCE DAILY metoprolol succinate 25 mg tablet extended release 24 hr 12.5 mg PO DAILY Qty: 30 0RF lisinopril 2.5 mg tablet 2.5 mg PO DAILY methocarbamol 750 mg tablet 750 mg PO HS Qty: 14 0RF Referrals Follow up/Referrals: Inder Figueroa MD [Primary Care Provider] - See instructions Clinical Impressions Clinical Impression: Fall, Cervical strain, acute, Acute lumbar myofascial strain, S/P AKA (above knee amputation) bilateral Instructions Patient Instructions: DI for Contusion Discharge ED Provider: Eri (ED)Kemal HPI General Chief Complaint: Fall Stated Complaint: fall Time Seen by Provider: 01/26/23 23:00 Mode of Arrival: EMS Source of Information: Patient, EMS and Medical Record Limitations: Physical Limitations Description of Symptoms (Recalled from ER Triage Doc. by RN): p britany he was attempting to self transport from chair to bed and fell. the pt reports neck and back pain. 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 History of Present Illness HPI Narrative: fall at [facility] with neck and back pain complaint: fall Onset (ago): hour(s) Fall from: chair Fall witnessed: no Place fall occurred: home Loss of consciousness: none Prolonged down time: no Symptoms prior to fall: none Location of injury: head and neck Severity: moderate Associated symptoms (after fall): denies Related Data Home Medications Medication Instructions Recorded Confirmed gabapentin 400 mg capsule 400 mg PO DAILY Pain 10/06/20 11/20/22 atorvastatin 80 mg tablet 80 mg PO HS Cholesterol 05/15/22 11/20/22 cetirizine 10 mg tablet 10 mg PO DAILY Allergy symptoms 05/15/22 11/20/22 clopidogrel 75 mg tablet 75 mg PO DAILY CVA 05/15/22 11/20/22 cyclobenzaprine 10 mg tablet 10 mg PO TID MUSCLE SPASM 05/15/22 11/20/22 duloxetine 30 mg capsule,delayed 30 mg PO DAILY MOOD 05/15/22 11/20/22 release famotidine 20 mg tablet 20 mg PO BID GERD 05/15/22 11/20/22 mirtazapine 15 mg tablet 7.5 mg PO HS Insomnia 05/15/22 11/20/22 sennosides 8.6 mg tablet (senna) 8.6 mg PO SUMOWEFR CONSTIPATION 05/15/22 11/20/22 lisinopril 2.5 mg tablet 2.5 mg PO DAILY BLOOD PRESSURE 05/29/22 11/20/22 albuterol sulfate 90 mcg/actuation 2 puff inhalation Q6H PRN SOA 06/23/22 11/20/22 aerosol inhaler melatonin 5 mg tablet 5 mg PO HS PRN Sleep 06/23/22 11/20/22 Previous Rx's Medication Instructions Recorded apixaban 5 mg tablet 5 mg PO BID cva #60 tabs 10/13/21 metoprolol succinate 25 mg 12.5 mg PO DAILY Hypertension #30 05/16/22 tablet,extended release 24 hr tabs methocarbamol 750 mg tablet 750 mg PO HS #14 tabs 11/20/22 Allergies Allergy/AdvReac Type Severity Reaction Status Date / Time sulfamethoxazole Allergy Intermediate Verified 09/05/22 10:40 [From Bactrim] trimethoprim [From Bactrim] Allergy Intermediate Verified 09/05/22 10:40 zolpidem [From Ambien] Allergy Unknown PT STATES Verified 09/05/22 10:40 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
[2023-01-26 23:30] VITALS: BP 153/76; PULSE 88; RESP 20; O2SAT 95
--- NOTE | 2023-01-26 23:55 | PC.NURSE ---
notified [facility] that pt is ready for transport back to [facility]
--- NOTE | 2023-01-27 00:06 | PC.NURSE ---
called report to [facility]
[2023-01-27 00:18] VITALS: BP 152/81; PULSE 81; RESP 18; TEMP 37.1; O2SAT 96
== END 2023-01-27 00:19 ==
PROVIDERS: Emergency Provider Emergency Medicine; PCP Internal Medicine Adolescent Medicine
DX: S16.1XXA Strain of muscle, fascia and tendon at neck level, initial encounter (principal); S39.012A Strain of muscle, fascia and tendon of lower back, initial encounter; W05.0XXA Fall from non-moving wheelchair, initial encounter; J44.9 Chronic obstructive pulmonary disease, unspecified; I25.5 Ischemic cardiomyopathy; I65.29 Occlusion and stenosis of unspecified carotid artery; I48.0 Paroxysmal atrial fibrillation; I73.9 Peripheral vascular disease, unspecified; Z86.73 Personal history of transient ischemic attack (TIA), and cerebral infarction without residual deficits; Z87.891 Personal history of nicotine dependence
CPT/HCPCS: 70450; 71045; 72125; 72128; 72131; 72170; 80053; 85025; 99284; 99285

== ENCOUNTER → 2023-05-25 14:50 | Outpatient (CLI) | payer MEDICARE, MEDICAID, SELFPAY ==
--- NOTE | 2023-05-25 14:58 | CA_ITS ---
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: Caity Coronado, RCS, RVS Ht: 5 ft 4 in Wt: 124lbs BSA: 1.60 BP: 145/82 mmHg Indications: Bilateral ATK amputation, FRITZ, CM, A-fib, ASCVD, Ex-smoker 2D Dimensions IVSd 1.24 cm LVEF (Visual) 51.10 % PWd 1.23 cm LA Volume 47.90 mL LVDd 5.26 cm LA Volume Index 29.20 mL/m2 (M/F) 16-34 LVDs 3.88 cm Aortic Root 3.40 cm Left Atrium 3.22 cm LVOT 2.09 cm (M/F) 1.5-2.5 M-Mode Dimensions LA Diam 2.65 cm (1.9-4.0) Ao Diam 3.52 cm (2.0-3.7) EPSs 1.36 cm TAPSE 1.32 (<1.7) LV Diastology E Decel Time 290.00 (160-240 msec) E/A Ratio 0.53 MED E' 3.10 (< 7 cm/sec) MED A' 5.90 cm/s E'/MED E' Ratio 21.03 (>14) LAT E' 6.00 (<10 cm/sec) LAT A' 7.30 cm/s E/LAT E' Ratio 10.87 (>14) Aortic Valve LVOT Max 73.00 (70-110 cm/s) LVOT VTI 16.09 cm AoV Peak Wilmar. 88.00 (50-130 cm/s) AO Peak GR. 3.10 mmHg AO Mean GR. 1.60 (<5 mmHg) AO VTI 20.76 (18-25 cm) PRO (VTI) 2.66 (2.5-4.5 cm2) Mitral Valve MV A Velocity 122.00 (40-130 cm/s) E/A Ratio 0.53 MV Decel. Time 290.00 (160-240 ms) Pulmonary Valve PV Peak Velocity 63.00 (50-150 cm/s) Left Ventricle The left ventricle is normal size. Left ventricular systolic function is mildly decreased. There is increased LV wall thickness. There is mild global hypokinesis present. Grade 2 diastolic dysfunction is present. LVEF is 40-45%. Right Ventricle The right ventricle is normal size. The right ventricular systolic function is normal. Atria The left atrium size is normal. The right atrium size is normal. The interatrial septum is not well visualized. Aortic Valve The aortic valve is mildly thickened. There is no aortic valvular stenosis. No aortic regurgitation is present. Mitral Valve Mild mitral annular calcification. The mitral valve leaflets are mildly thickened. Trace mitral regurgitation. Tricuspid Valve The tricuspid valve leaflets are thin and pliable. Trace tricuspid regurgitation. RVSP is normal. Pulmonic Valve The pulmonary valve is grossly normal in structure. Trace pulmonic regurgitation. Great Vessels The aortic root is normal in size. The ascending aorta is not well visualized. IVC is normal in size and collapses >50% with inspiration. Pericardium There is no pericardial effusion. Conclusion Mild reduction in global LV systolic function. LVEF 40-45% No significant valvular stenosis or regurgitation. Further evaluation of the reduced LV systolic function as recommended by cardiac MRI (cardiomyopathy protocol). Electronically signed by : Melida Benavides MD 05/30/2023 22:55:00
== END ==
PROVIDERS: PCP Internal Medicine Adolescent Medicine; Visit Provider Physician Assistant
DX: I25.10 Atherosclerotic heart disease of native coronary artery without angina pectoris (principal); R07.9 Chest pain, unspecified; R06.09 Other forms of dyspnea
CPT/HCPCS: 93306

== ENCOUNTER → 2023-06-25 12:54 | Outpatient (CLI) | payer MEDICARE, MEDICAID, SELFPAY ==
--- NOTE | 2023-06-25 13:12 | MR_ITS ---
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 Software platform sequences were performed using the Siemens [employer] [place] MR B19 platform. A set of three-plane, low-resolution, large [id number] localizers were initially acquired. Then axial, coronal, sagittal TrueFISP, as well as axial HASTE images, were obtained. These were followed by gated TrueFISP breathold cinematic sequences obtained in the short axis with 8 mm slices and 2 mm gaps, 2-chamber (vertical long axis), 3-chamber, 4-chamber (horizontal long axis). A bolus of contrast was injected intravenously with first-pass sequences obtained in the short axis and four-chamber planes. After approximately 10 minutes, a TI gas operations analyst sequence was performed to determine the optimal TI time. Using the optimized TI time, delayed contrast enhancement segmented inversion???recovery TurboFLASH sequences were obtained in the short axis, 2-chamber, 3-chamber, and 4-chamber projections. 2D-velocity phase mapping was performed. Functional parameters were calculated by offline analysis on an independent workstation ([employer], [employer]). Contrast: ProHance??? (Gadoteridol) FINDINGS See below for the full quantitative analysis report. MORPHOLOGY AND FUNCTION Left ventricle: The left ventricle is normal in size. The indexed left ventricular end-diastolic volume (LVEDVi) is 81 ml/m2 (reference range 57-105 ml/m2 in males, 56-96 ml/m2 in females). Moderate reduction in left ventricular systolic function is present. There is normal left ventricular wall thickness. There is severe hypokinesis of the basal anterior, lateral, and anterolateral LV dennis. LVEF is calculated at 36% (reference range 57-77%). Right ventricle: The right ventricle cavity is small. The indexed right ventricular end-diastolic volume (RVEDVi) is 42 ml/m2 (reference range 61-121 ml/m2 in males, 48-112 ml/m2 in females). There is mild reduction in right ventricular systolic function. RVEF is calculated at 43% (reference range 52-72% in males, 51-71% in females). Atria: The left atrium is normal in size. The maximum indexed left atrial volume is 34 ml/m2 (reference range 26-52 ml/m2 in males, 27-53 ml/m2 in females). The right atrium is normal in size. The maximum indexed right atrial volume is 20 ml/m2 (reference range 18-90 ml/m2). Aorta: The diameter of the aortic annulus is normal, measuring 24 mm (coronal view reference range 21-30 mm in males, 19-27 mm in females). The diameter of the aortic sinus is normal, measuring 28 mm (coronal view reference range 25-42 mm in males, 24-36 mm in females). The diameter of the sinotubular junction is normal, measuring 22 mm (coronal view reference range 18-32 mm in males, 18-28 mm in females). The diameters of the ascending and descending thoracic aorta are normal. Main pulmonary artery: The main pulmonary artery diameter is normal. Pericardium: The pericardial thickness is normal. The pericardial thickness measures 2.2 cm (normal < 4.0 cm). There is no pericardial effusion. VALVES The valvular morphologies in the visualized sequences appear normal. There is no significant valvular stenosis or regurgitation of the mitral, aortic, tricuspid, or pulmonic valve noted visually. Systolic anterior motion of the mitral valve is not visualized. Ratio of pulmonary to systemic flow, Qp:Qs ratio < 1.0 (normal < or = 1.2), demonstrating no evidence of hemodynamically significant shunt. TISSUE CHARACTERIZATION Resting Perfusion: Hypoperfusion is noted in the basal lateral and anterolateral LV dennis. Myocardial Fibrosis and/or edema: There is subendocardial late
[2023-06-25 13:17] LABS: Basophils # 0.1 K/mm3 (0-0.2); Basophils % 0.8 % (0.1-2.0); Eosinophils # 0.2 K/mm3 (0.0-0.4); Hematocrit 44.3 % (42.0-52.0); Hemoglobin 15.1 g/dL (14.1-18.0); Lymphocytes # 2.1 K/mm3 (0.7-4.5); Lymphocytes % 37.7 % (10-50); Mean Corpuscular HGB Conc 34.1 g/dL (31.8-35.4); Mean Corpuscular Hemoglobin 32.1 pg (27.0-31.2); Mean Corpuscular Volume 94.1 fl (80-94); Mean Platelet Volume 8.7 fl (7.4-10.4); Monocytes # 0.5 K/mm3 (0.1-1.0); Monocytes % 9.1 % (1.7-9.3); Neutrophils # 2.7 K/mm3 (1.8-7.8); Neutrophils % 49.3 % (37.0-80.0); Platelet Count 234 K/mm3 (142-424); Red Blood Count 4.71 M/mm3 (4.60-6.20); Red Cell Distribution Width 14.3 % (11.5-17.5); White Blood Count 5.5 K/mm3 (4.8-10.8)
[2023-06-25 14:16] LABS: Alanine Aminotransferase 26 U/L (12-78); Albumin Level 3.7 g/dl (3.5-5.0); Alkaline Phosphatase 88 U/L (38-126); Anion Gap 11.6 mEq/L (5-15); Aspartate Amino Transferase 32 U/L (17-59); Bilirubin,Direct 0.1 mg/dl (0.0-0.4); Bilirubin,Indirect 0.2 mg/dL (0.0-0.9); Bilirubin,Total 0.3 mg/dl (0.2-1.3); Bilirubin,Unconjugated 0.2 mg/dL (0.0-1.1); Blood Urea Nitrogen 13 mg/dl (9-20); Calcium 8.8 mg/dl (8.4-10.2); Carbon Dioxide 28 mmol/L (22.0-30.0); Chloride 105 mmol/L (98-107); Chol/HDL Ratio 4.9 (1-3.5); Cholesterol 97 mg/dl (140-200); Estimated Glomerular Filt Rate 134 ml/min (>60); GFR (African American) 162 ML/MIN (>60); Glucose 102 mg/dl (74-100); HDL Cholesterol 20 mg/dl (40-60); Magnesium 1.9 mg/dl (1.6-2.3); Potassium 3.6 mmoL/L (3.5-5.1); Sodium 141 mmol/L (136-145); Total Protein,Serum 7.1 g/dl (6.3-8.2); Triglycerides 130 mg/dl (30-150); VLDL Cholesterol 26 mg/dL (0-40)
[2023-06-25 14:27] LABS: Direct LDL Cholesterol 62.29 mg/dL (100-129)
[2023-06-25 14:49] LABS: Thyroid Stimulating Hormone 4.13 uIU/mL (0.465-4.68)
== END ==
PROVIDERS: PCP Emergency Medicine; Visit Provider Physician Assistant
DX: I10 Essential (primary) hypertension (principal); R07.9 Chest pain, unspecified; I25.118 Atherosclerotic heart disease of native coronary artery with other forms of angina pectoris; I50.20 Unspecified systolic (congestive) heart failure; K21.00 Gastro-esophageal reflux disease with esophagitis, without bleeding; N52.9 Male erectile dysfunction, unspecified; R49.0 Dysphonia; I42.8 Other cardiomyopathies
CPT/HCPCS: 36415; 75561; 80048; 80061; 80076; 83735; 84439; 84443; 85025; A9576

== ENCOUNTER 2023-07-20 08:11 | Day surgery (SDC) | payer MEDICARE, MEDICAID, SELFPAY ==
[2023-07-20] VITALS (14 sets, daily range): BP systolic 140–153; BP diastolic 76–115; PULSE 70–86; RESP 16–20; O2SAT 88–97; BMI 81.3; BMI 65.6
--- NOTE | 2023-07-20 07:23 | IR_ITS ---
APPROVED REPORT Patient Location: Outpatient PROCEDURES Right radial arterial access Right retrograde radial artery angiogram Catheter placement in the right radial artery INDICATION Known coronary artery disease, Abnormal Myoview, Angina pectoris Informed consent was obtained prior to the procedure. COMPLICATIONS NONE Estimated Blood Loss: LESS THAN 10 ML TECHNIQUE One percent lidocaine used to anesthetize the right anterior aspect of the wrist. The right radial artery was accessed via the Seldinger technique. A 6 Maltese sheath was placed in the right radial artery. 800 mcg of nitroglycerin was administered through the arterial sheath. An advantage wire to pass through the radial and brachial artery however the Poppa catheter would not advance. Retrograde angiography demonstrated a stenotic area in the radial artery. The sheath was removed and a 25 cm hydrophilic sheath was attempted to be placed into the radial artery however it would not past the stenotic area. At this point the apparatus was removed the sheath was removed and hemostasis was achieved using TR banding. 1% lidocaine was used to anesthetize the right groin however the right femoral artery was pulseless. 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 This point it was decided to abort the procedure and refer patient to a tertiary center for brachial artery access. Brachial artery access was deemed not appropriate at this hospital given the lack of vascular surgery in the event brachial thrombosis would occur. IMPRESSION No right radial arterial access to the heart Bilateral occluded femoral arteries PLAN 1. Refer patient to [facility] for brachial artery access cardiac angiography Electronically signed by : Roberto Darnell MD 07/20/2023 12:39:55
[2023-07-20] MEDS: CLOPIDOGREL 75MG TAB 75 MG PO (08:50)
[2023-07-20 08:59] LABS: Basophils # 0.1 K/mm3 (0-0.2); Basophils % 0.7 % (0.1-2.0); Eosinophils # 0.2 K/mm3 (0.0-0.4); Eosinophils % 2.8 % (0.1-12.0); Hematocrit 45.9 % (42.0-52.0); Hemoglobin 15.1 g/dL (14.1-18.0); Lymphocytes # 2.4 K/mm3 (0.7-4.5); Lymphocytes % 30.7 % (10-50); Mean Corpuscular HGB Conc 32.9 g/dL (31.8-35.4); Mean Corpuscular Hemoglobin 31.3 pg (27.0-31.2); Mean Corpuscular Volume 95.1 fl (80-94); Mean Platelet Volume 8.7 fl (7.4-10.4); Monocytes # 0.7 K/mm3 (0.1-1.0); Neutrophils # 4.5 K/mm3 (1.8-7.8); Neutrophils % 56.8 % (37.0-80.0); Platelet Count 204 K/mm3 (142-424); Red Blood Count 4.82 M/mm3 (4.60-6.20); Red Cell Distribution Width 14.2 % (11.5-17.5); White Blood Count 7.9 K/mm3 (4.8-10.8)
[2023-07-20 09:02] LABS: Chloride 105 mmol/L (98-107); Potassium 3.8 mmoL/L (3.5-5.1); Sodium 140 mmol/L (136-145)
[2023-07-20 09:05] LABS: Anion Gap 11.8 mEq/L (5-15); Blood Urea Nitrogen 17 mg/dl (9-20); Calcium 8.5 mg/dl (8.4-10.2); Carbon Dioxide 27 mmol/L (22.0-30.0); Creatinine Clearance Estimated -5 mL/min (50-200); Estimated Glomerular Filt Rate 112 ml/min (>60); GFR (African American) 136 ML/MIN (>60); Glucose 109 mg/dl (74-100)
[2023-07-20] MEDS: diphenhydrAMINE 50MG/ML VIAL 50 MG IV (10:53)
[2023-07-20] MEDS: LIDOCAINE 1% 10ML MDV 20 ML IJ (10:54)
[2023-07-20] MEDS: NITROGLYCERIN 800MCG/8ML SYR (CATH LAB) 800 MCG IA (10:54)
[2023-07-20] MEDS: VERAPAMIL 2.5MG/ML 2ML VIAL 2.5 MG IV (10:54)
[2023-07-20] MEDS: HEPARIN 1,000 UNITS/ML 10ML VIAL (CATH LAB) 10000 UNIT IV (10:54)
[2023-07-20] MEDS: HEPARIN 1,000 UNITS/500ML NS (CATH LAB) 3000 UNIT IV (10:54)
[2023-07-20] MEDS: 0.9 % SODIUM CHLORIDE 500 ML 25 ML IV (10:55)
[2023-07-20] MEDS: MIDAZOLAM HCL 1MG/1ML 5ML VIAL 1 MG IV (11:34)
[2023-07-20] MEDS: FENTANYL 100MCG/2ML VIAL 50 MCG IV (11:34)
--- NOTE | 2023-07-20 13:51 | SUR.PHASEII ---
Report given to Letty at [facility]
[2023-07-20] MEDS: IOPAMIDOL-370 (76%);100ML BOTTLE 10 ML IV (14:02)
== END 2023-07-20 14:44 | disposition home or self-care (01) ==
PROVIDERS: PCP Internal Medicine; Visit Provider Internal Medicine
DX: I70.92 Chronic total occlusion of artery of the extremities (principal); I25.118 Atherosclerotic heart disease of native coronary artery with other forms of angina pectoris; I11.0 Hypertensive heart disease with heart failure; I48.0 Paroxysmal atrial fibrillation; I50.21 Acute systolic (congestive) heart failure; R93.1 Abnormal findings on diagnostic imaging of heart and coronary circulation; R94.31 Abnormal electrocardiogram [ECG] [EKG]; Z89.611 Acquired absence of right leg above knee; Z89.612 Acquired absence of left leg above knee; I42.9 Cardiomyopathy, unspecified; I77.1 Stricture of artery; I70.203 Unspecified atherosclerosis of native arteries of extremities, bilateral legs
CPT/HCPCS: 36216; 75710; 80048; 85025; 99152; 99153; C1725; C1760; C1769; J1644; Q9967

== ENCOUNTER 2023-10-18 13:58 | Inpatient (IN) | payer MEDICARE, MEDICAID, SELFPAY ==
[2023-10-18] VITALS (8 sets, daily range): BP systolic 90–130; BP diastolic 42–65; PULSE 83–131; RESP 18–20; TEMP 36.6–37.2; O2SAT 84–92; BMI 23.0; BMI 21.7
--- NOTE | 2023-10-18 14:03 | HMH.EDGENADL ---
Discharge Plan Disposition Patient Disposition: Admitted Clinical Impressions Clinical Impression: Acute hypoxemic respiratory failure Community acquired pneumonia Qualifiers: Laterality: unspecified laterality Qualified Code(s): J18.9 - Pneumonia, unspecified organism Discharge ED Provider: Kanwal Villavicencio General Adult HPI <BRIAN Moralez - Last Filed: 10/18/23 16:12> General Chief complaint: Nausea/Vomiting/Diarrhea Stated complaint: vomiting abd pain Time Seen by Provider: 10/18/23 13:59 History of Present Illness HPI narrative: Patient is a 68-year-old male who presents initially with chief complaint of nausea vomiting diarrhea. Patient reports that I started feeling bad last night but cannot elucidate. Patient states that he had an upset stomach starting this morning first drank a carbonated dark soda and then drank a clear carbonated soda at which point he threw up. Patient denies aspiration. He does have a past medical history of peripheral vascular disease, coronary artery disease status post PCI with stents, ongoing tobaccoism, CHF, hypertension, hyperlipidemia,, COPD not on chronic oxygen and is a bilateral [id number] amputee. Patient currently denies chest pain fever chills hemoptysis hematochezia melena hematemesis. Related Data Home Medications Medication Instructions Recorded Confirmed gabapentin 400 mg capsule 400 mg PO DAILY Pain 10/06/20 09/04/23 atorvastatin 80 mg tablet 80 mg PO HS Cholesterol 05/15/22 09/04/23 cetirizine 10 mg tablet 10 mg PO DAILY Allergy symptoms 05/15/22 09/04/23 clopidogrel 75 mg tablet 75 mg PO DAILY CVA 05/15/22 09/04/23 duloxetine 30 mg capsule,delayed 20 mg PO DAILY MOOD 05/15/22 09/04/23 release famotidine 20 mg tablet 20 mg PO BID GERD 05/15/22 09/04/23 mirtazapine 15 mg tablet 7.5 mg PO HS Insomnia 05/15/22 09/04/23 sennosides 8.6 mg tablet (senna) 8.6 mg PO SUMOWEFR CONSTIPATION 05/15/22 09/04/23 melatonin 5 mg tablet 5 mg PO HS PRN Sleep 06/23/22 09/04/23 metoprolol succinate 25 mg 25 mg PO DAILY 06/20/23 09/04/23 tablet,extended release 24 hr nystatin 100,000 unit/gram topical 10,000 unit topical TID 10/18/23 10/18/23 powder (Nystop) Previous Rx's Medication Instructions Recorded apixaban 5 mg tablet 5 mg PO BID cva #60 tabs 10/13/21 methocarbamol 750 mg tablet 750 mg PO HS #14 tabs 11/20/22 tadalafil 2.5 mg tablet (Cialis) 2.5 mg PO DAILY #30 tabs 05/14/23 sacubitril 24 mg-valsartan 26 mg 1 tab PO BID #60 tabs 06/07/23 tablet (Entresto) amoxicillin 500 mg tablet 500 mg PO TID #21 tabs 09/27/23 Allergies Allergy/AdvReac Type Severity Reaction Status Date / Time sulfamethoxazole Allergy Intermediate Verified 10/18/23 18:14 [From Bactrim] trimethoprim [From Bactrim] Allergy Intermediate Verified 10/18/23 18:14 zolpidem [From Ambien] Allergy Unknown PT STATES Verified 10/18/23 18:14 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 [facility] <BRIAN Moralez - Last Filed: 10/18/23 16:12> [facility] Disclaimer: The information contained in this section may have been updated after the patient was seen, as this information can be updated by other users. Medical History (Updated 10/18/23 @ 18:13 by Fatoumata Carter RN) Abnormal EKG Abnormal stress test Acute exacerbation of chronic obstructive pulmonary disease (COPD) Below-knee amputation of left lower extremity Below-knee amputation of right lower extremity Cardiomyopathy, ischemic Carotid artery stenosis CHF (congestive heart failure) COPD (chronic obstructive pulmonary disease) Dyspnea GERD (gastroesophageal reflux disease) Hemiplegia and hemiparesis following cerebral infarction affecting left non-dominant side Hoarseness Left arm pain Myocardial infarction PAF (paroxysmal atrial fibrillation) Peripheral arterial disease Peripheral vascular disease, unspecified Pneumonia Protein calorie malnutrition Systolic heart failure Transient cerebral ischemic attack, unspecified Vision changes Surgical History History of heart artery stent Family History Other Myocardial infarction acute Social History (Updated 08/24/23 @ 15:05 by Karen Lin) Smoking Status: Unknown if ever smoked second hand exposure: No alcohol intake: never substance use type: denies use current occupational status: disabled Travel in the last 8 weeks: None household members: significant other housing: [facility] current occupational exposures/hazards: No caffeine: Yes <BRIAN Moralez - Last Filed: 10/18/23 16:12> ROS Obtained: Yes Systems reviewed as appropriate & no additional complaints except as documented Physical Exam <BRIAN Moralez - Last Filed: 10/18/23 16:12> General General appearance: alert and in no apparent distress Head Head exam: atraumatic and normal inspection Eye Eye exam: Present normal appearance and PERRL ENT ENT exam: Present normal exam, normal oropharynx and mucous membranes moist Neck Neck exam: Present normal inspection, full ROM and trachea midline; Absent lymphadenopathy Chest Chest inspection: Present normal inspection and symmetric chest wall rise Respiratory Respiratory exam: Present prolonged expiratory phase and other (Patient has diminished air entry and diminished breath sounds at the bases with end expiratory wheezing); Absent normal lung sounds bilaterally Cardiovascular Cardiovascular exam: Present normal rhythm, tachycardia, normal heart sounds, +S1 and +S2 Abdominal Exam Abdominal exam: Present soft and hyperactive bowel sounds; Absent tenderness, guarding or rebound Extremities Exam Extremities exam: Present normal inspection (Of the bilateral upper extremities. Patient has bilateral AKA), full ROM (Of the bilateral upper extremities) and normal capillary refill (Of the bilateral upper extremities) Back Exam Back exam: Present normal inspection and full ROM; Absent tenderness or CVA tenderness (R) Neurological Exam Neurological exam: Present alert, oriented X3 and CN II-XII intact Psychiatric Psychiatric exam: Present normal affect and normal mood Skin Skin exam: Present warm, dry and normal color Medical Decision Making <BRIAN Moralez - Last Filed: 10/18/23 16:12> Medical Records Medical records reviewed: Yes I reviewed the patient's medical records. Nelson Inquiry Pt receiving controlled substance: No Vital Signs: 10/18/23 13:58 10/18/23 13:59 10/18/23 14:30 Temperature 99.0 F Temperature Source Oral Pulse Rate 131 H 114 H Pulse Rate [Radial] 119 H Respiratory Rate 20 Blood Pressure 121/65 130/50 L Blood Pressure [Right Arm] 125/62 Blood Pressure Mean [Right Arm] 83 Blood Pressure Source Blood Pressure Source [Right Arm] Automatic Cuff Blood Pressure Position Blood Pressure Position [Right Arm] Sitting 02 Sat by Pulse Oximetry 88 L 84 L 92 L Oxygen Delivery Method Room Air Oxygen Flow Rate (LPM) 10/18/23 16:53 Temperature 99.0 F Temperature Source Oral Pulse Rate 114 H Pulse Rate [Radial] Respiratory Rate 20 Blood Pressure 130/50 L Blood Pressure [Right Arm] Blood Pressure Mean [Right Arm] Blood Pressure Source Automatic Cuff Blood Pressure Source [Right Arm] Blood Pressure Position Sitting Blood Pressure Position [Right Arm] 02 Sat by Pulse Oximetry Oxygen Delivery Method Nasal Cannula Oxygen Flow Rate (LPM) 6 Lab Data Lab results reviewed: Yes I reviewed the patient's lab results. Lab Results 10/18/23 14:00: SARS-CoV-2 (PCR) Not detected, Influenza A Untype (PCR) Not detected, Influenza Type B (PCR) Not detected 10/18/23 14:15: WBC 11.7 H, RBC 4.69, Hgb 14.5, Hct 45.7, MCV 97.5 H, MCH 30.9, MCHC 31.7 L, RDW 14.9, Plt Count 225, MPV 8.7, Neut % (Auto) 89.9 H, Lymph % (Auto) 5.8 L, [place] % (Auto) 3.7, Eos % (Auto) 0.3, Baso % (Auto) 0.3, Neut # (Auto) 10.5 H, Lymph # (Auto) 0.7, [place] # (Auto) 0.4, Eos # (Auto) 0.0, Baso # (Auto) 0.0, Total Counted 100, Neutrophils % (Manual) 88 H, Lymphocytes % (Manual) 9 L, Monocytes % (Manual) 3, Platelet Estimate Normal, Hypochromasia 1+, Anisocytosis 1+, D-Dimer 0.43, Sodium 141, Potassium 4.5, Chloride 111 H, Carbon Dioxide 24, Anion Gap 10.5, BUN 34 H, Creatinine 1.00, Estimated Creat Clear 61, Estimated GFR 74, Est GFR ( Amer) 90, Glucose 139 H, Lactate 2.4 H, Calcium 8.6, Magnesium 1.8, Total Bilirubin 0.8, AST 36, ALT 35, Alkaline Phosphatase 83, Troponin I 0.01, NT-Pro-B Natriuret Pep 627 H, Total Protein 7.1, Albumin 3.6, Globulin 3.5 H, Albumin/Globulin Ratio 1.0 L, Procalcitonin 0.123 10/18/23 14:35: VBG Lactic Acid 2.9 H 10/18/23 14:40: VBG pH 7.32, VBG pCO2 38.6, VBG pO2 76.2 H, VBG HCO3 19.4 L, VBG Total CO2 20.5 L, VBG O2 Saturation 94.7 H, VBG Base Excess -6.8 L 10/18/23 14:15 10/18/23 14:15 Orders (Tests/Meds): ED MEDICATIONS Generic Name Dose Route Start Last Admin Trade Name Freq PRN Reason Stop Dose Admin Acetaminophen 650 mg 10/18/23 18:23 Acetaminophen 325mg Tab PO 11/17/23 18:22 Q4HP PRN Fever or Mild Pain (1-3) Albuterol/Ipratropium 3 ml 10/19/23 00:00 10/18/23 23:06 Ipratropium/Albuterol 3 Ml Neb IH 11/18/23 00:00 3 ml Q6RT ANNA Administration Heparin Sodium (Porcine) 5,000 unit 10/18/23 18:30 10/18/23 18:48 Heparin Sodium 5,000 Unit/Ml Vial SQ 11/17/23 18:29 5,000 unit Q8H ANNA Administration Ceftriaxone Sodium 1 gm/ 50 mls @ 100 mls/hr 10/18/23 15:30 10/18/23 15:42 Sodium Chloride IV 10/28/23 15:29 100 mls/hr Q24H ANNA Administration Azithromycin 500 mg/ Sodium 250 mls @ 250 mls/hr 10/18/23 15:30 10/18/23 18:02 Chloride IV 10/28/23 15:29 250 mls/hr Q24H ANNA Administration Ondansetron HCl 4 mg 10/18/23 18:23 Ondansetron 4mg/2ml Vial IV 11/17/23 18:22 Q8HP PRN Nausea Discontinued Medications Generic Name Dose Route Start Last Admin Trade Name Freq PRN Reason Stop Dose Admin Acetaminophen 1,000 mg 10/18/23 14:19 10/18/23 14:32 Acetaminophen 1,000mg/100ml Vial IV 10/18/23 14:20 1,000 mg ONCE ONE Administration Albuterol/Ipratropium 3 ml 10/18/23 14:09 10/18/23 14:16 Ipratropium/Albuterol 3 Ml Neb IH 10/18/23 14:10 3 ml ONCE ONE Administration Dexamethasone Sodium Phosphate 10 mg 10/18/23 14:09 10/18/23 14:17 Dexamethasone 4mg/Ml 1ml Vial IV 10/18/23 14:10 10 mg ONCE ONE Administration Furosemide 80 mg 10/18/23 14:30 10/18/23 14:34 Furosemide 100mg/10ml Vial IV 10/18/23 14:31 Not Given ONCE ONE Lactated Ringer's 500 mls @ 999 mls/hr 10/18/23 14:19 10/18/23 14:32 Lactated Ringer's 500ml IV 10/18/23 14:49 999 mls/hr .Q31M ONE Administration Ketorolac Tromethamine 15 mg 10/18/23 14:19 10/18/23 14:32 Ketorolac 30mg/Ml Vial IV 10/18/23 14:20 15 mg ONCE ONE Administration ORDERS Category Date Time Status Chest XR -- portable [XR chest portable] Stat Exams 10/18/23 14:09 Completed BNP [Brain Natriuretic Peptide] Stat Lab 10/18/23 14:15 Completed CBC w/Auto Diff [Complete Blood Count Auto Diff] Stat Lab 10/18/23 14:15 Completed CMP [Comprehensive Metabolic Panel] Stat Lab 10/18/23 14:15 Completed D-Dimer Stat Lab 10/18/23 14:15 Completed Lactate Venous Routine Lab 10/18/23 14:35 Completed Lactic Acid Stat Lab 10/18/23 14:15 Completed Magnesium Stat Lab 10/18/23 14:15 Completed Procalcitonin Stat Lab 10/18/23 14:15 Completed Rapid PCR Covid and Flu A/B Stat Lab 10/18/23 14:00 Completed Troponin I Q3H Lab 10/18/23 17:35 Completed Troponin I Q3H Lab 10/18/23 19:50 Completed Troponin I Stat Lab 10/18/23 14:15 Completed Blood Culture Stat Micro 10/18/23 15:52 Received VBG [Venous Blood Gas] Stat RT 10/18/23 14:40 Completed HEART Score History (anamnesis): Moderately suspicious Age: >65 years Risk factors: Atherosclerosis history Medical Decision Narrative: In summary patient is a 68-year-old male who presents to the emergency department for evaluation of initially nausea vomiting diarrhea. Patient is normotensive but tachycardic, satting at 88% on room air upon arrival, with a temperature of 99. Physical exam is remarkable for diminished air entry and expiratory wheezes in the bilateral lung guo. Patient has no abdominal tenderness to palpation but does have hyperactive bowel sounds. Differential diagnosis includes COPD exacerbation, CHF exacerbation, gastroenteritis, ACS, PE, bacterial or viral respiratory infection, pleural effusion etc. Initial workup will be conducted with hematologic labs plain film chest x-ray twelve-lead EKG COVID and flu swabs. Initial interventions include gentle crystalloid bolus, DuoNeb, IV steroids, antiemetics, acetaminophen, Toradol. Initial workup reviewed by me is a white count 11.5 with a left shift. VBG shows a normal CO2 and preserved pH. My informal interpretation of his plain film chest x-ray shows atelectasis/infiltrates in the bilateral lower lobes. Lactic acid was initially elevated 2.4. Patient is requiring 5 L by nasal cannula for an O2 sat of 90% currently. D-dimer was 0.43 and given that the patient is a bilateral lower extremity AKA and is on Plavix and Xarelto PE study was considered but deferred. Initial troponin 0.01. Flu and COVID are negative. Upon repeat evaluation has had no nausea vomiting or diarrhea since been in the ER. Patient given a 500 cc lactated Ringer's bolus in consideration of his history of heart failure. Patient's tachycardia is responsive to the fluid. Called [facility] medicine at 1530 reached [facility] medicine at 1530 however they are busy and will return phone call given this discussed the patient with hospital medicine <Kanwal Villavicencio, DO - Last Filed: 10/18/23 23:29> Vital Signs: 10/18/23 13:58 10/18/23 13:59 10/18/23 14:30 Temperature 99.0 F Temperature Source Oral Pulse Rate 131 H 114 H Pulse Rate [Radial] 119 H Respiratory Rate 20 Blood Pressure 121/65 130/50 L Blood Pressure [Right Arm] 125/62 Blood Pressure Mean [Right Arm] 83 Blood Pressure Source Blood Pressure Source [Right Arm] Automatic Cuff Blood Pressure Position Blood Pressure Position [Right Arm] Sitting 02 Sat by Pulse Oximetry 88 L 84 L 92 L Oxygen Delivery Method Room Air Oxygen Flow Rate (LPM) 10/18/23 16:53 Temperature 99.0 F Temperature Source Oral Pulse Rate 114 H Pulse Rate [Radial] Respiratory Rate 20 Blood Pressure 130/50 L Blood Pressure [Right Arm] Blood Pressure Mean [Right Arm] Blood Pressure Source Automatic Cuff Blood Pressure Source [Right Arm] Blood Pressure Position Sitting Blood Pressure Position [Right Arm] 02 Sat by Pulse Oximetry Oxygen Delivery Method Nasal Cannula Oxygen Flow Rate (LPM) 6 Lab Data Lab Results 10/18/23 14:00: SARS-CoV-2 (PCR) Not detected, Influenza A Untype (PCR) Not detected, Influenza Type B (PCR) Not detected 10/18/23 14:15: WBC 11.7 H, RBC 4.69, Hgb 14.5, Hct 45.7, MCV 97.5 H, MCH 30.9, MCHC 31.7 L, RDW 14.9, Plt Count 225, MPV 8.7, Neut % (Auto) 89.9 H, Lymph % (Auto) 5.8 L, [place] % (Auto) 3.7, Eos % (Auto) 0.3, Baso % (Auto) 0.3, Neut # (Auto) 10.5 H, Lymph # (Auto) 0.7, [place] # (Auto) 0.4, Eos # (Auto) 0.0, Baso # (Auto) 0.0, Total Counted 100, Neutrophils % (Manual) 88 H, Lymphocytes % (Manual) 9 L, Monocytes % (Manual) 3, Platelet Estimate Normal, Hypochromasia 1+, Anisocytosis 1+, D-Dimer 0.43, Sodium 141, Potassium 4.5, Chloride 111 H, Carbon Dioxide 24, Anion Gap 10.5, BUN 34 H, Creatinine 1.00, Estimated Creat Clear 61, Estimated GFR 74, Est GFR ( Amer) 90, Glucose 139 H, Lactate 2.4 H, Calcium 8.6, Magnesium 1.8, Total Bilirubin 0.8, AST 36, ALT 35, Alkaline Phosphatase 83, Troponin I 0.01, NT-Pro-B Natriuret Pep 627 H, Total Protein 7.1, Albumin 3.6, Globulin 3.5 H, Albumin/Globulin Ratio 1.0 L, Procalcitonin 0.123 10/18/23 14:35: VBG Lactic Acid 2.9 H 10/18/23 14:40: VBG pH 7.32, VBG pCO2 38.6, VBG pO2 76.2 H, VBG HCO3 19.4 L, VBG Total CO2 20.5 L, VBG O2 Saturation 94.7 H, VBG Base Excess -6.8 L Orders (Tests/Meds): ED MEDICATIONS Generic Name Dose Route Start Last Admin Trade Name Ny PRN Reason Stop Dose Admin Acetaminophen 650 mg 10/18/23 18:23 Acetaminophen 325mg Tab PO 11/17/23 18:22 Q4HP PRN Fever or Mild Pain (1-3) Albuterol/Ipratropium 3 ml 10/19/23 00:00 10/18/23 23:06 Ipratropium/Albuterol 3 Ml Neb IH 11/18/23 00:00 3 ml Q6RT ANNA Administration Heparin Sodium (Porcine) 5,000 unit 10/18/23 18:30 10/18/23 18:48 Heparin Sodium 5,000 Unit/Ml Vial SQ 11/17/23 18:29 5,000 unit Q8H ANNA Administration Ceftriaxone Sodium 1 gm/ 50 mls @ 100 mls/hr 10/18/23 15:30 10/18/23 15:42 Sodium Chloride IV 10/28/23 15:29 100 mls/hr Q24H ANNA Administration Azithromycin 500 mg/ Sodium 250 mls @ 250 mls/hr 10/18/23 15:30 10/18/23 18:02 Chloride IV 10/28/23 15:29 250 mls/hr Q24H ANNA Administration Ondansetron HCl 4 mg 10/18/23 18:23 Ondansetron 4mg/2ml Vial IV 11/17/23 18:22 Q8HP PRN Nausea Discontinued Medications Generic Name Dose Route Start Last Admin Trade Name Freq PRN Reason Stop Dose Admin Acetaminophen 1,000 mg 10/18/23 14:19 10/18/23 14:32 Acetaminophen 1,000mg/100ml Vial IV 10/18/23 14:20 1,000 mg ONCE ONE Administration Albuterol/Ipratropium 3 ml 10/18/23 14:09 10/18/23 14:16 Ipratropium/Albuterol 3 Ml Neb IH 10/18/23 14:10 3 ml ONCE ONE Administration Dexamethasone Sodium Phosphate 10 mg 10/18/23 14:09 10/18/23 14:17 Dexamethasone 4mg/Ml 1ml Vial IV 10/18/23 14:10 10 mg ONCE ONE Administration Furosemide 80 mg 10/18/23 14:30 10/18/23 14:34 Furosemide 100mg/10ml Vial IV 10/18/23 14:31 Not Given ONCE ONE Lactated Ringer's 500 mls @ 999 mls/hr 10/18/23 14:19 10/18/23 14:32 Lactated Ringer's 500ml IV 10/18/23 14:49 999 mls/hr .Q31M ONE Administration Ketorolac Tromethamine 15 mg 10/18/23 14:19 10/18/23 14:32 Ketorolac 30mg/Ml Vial IV 10/18/23 14:20 15 mg ONCE ONE Administration ORDERS Category Date Time Status Chest XR -- portable [XR chest portable] Stat Exams 10/18/23 14:09 Completed BNP [Brain Natriuretic Peptide] Stat Lab 10/18/23 14:15 Completed CBC w/Auto Diff [Complete Blood Count Auto Diff] Stat Lab 10/18/23 14:15 Completed CMP [Comprehensive Metabolic Panel] Stat Lab 10/18/23 14:15 Completed D-Dimer Stat Lab 10/18/23 14:15 Completed Lactate Venous Routine Lab 10/18/23 14:35 Completed Lactic Acid Stat Lab 10/18/23 14:15 Completed Magnesium Stat Lab 10/18/23 14:15 Completed Procalcitonin Stat Lab 10/18/23 14:15 Completed Rapid PCR Covid and Flu A/B Stat Lab 10/18/23 14:00 Completed Troponin I Q3H Lab 10/18/23 17:35 Completed Troponin I Q3H Lab 10/18/23 19:50 Completed Troponin I Stat Lab 10/18/23 14:15 Completed Blood Culture Stat Micro 10/18/23 15:52 Received VBG [Venous Blood Gas] Stat RT 10/18/23 14:40 Completed Medical Decision Narrative: In summary patient is a 68-year-old male who presents to the emergency department for evaluation of initially nausea vomiting diarrhea. Patient is normotensive but tachycardic, satting at 88% on room air upon arrival, with a temperature of 99. Physical exam is remarkable for diminished air entry and expiratory wheezes in the bilateral lung guo. Patient has no abdominal tenderness to palpation but does have hyperactive bowel sounds. Differential diagnosis includes COPD exacerbation, CHF exacerbation, gastroenteritis, ACS, PE, bacterial or viral respiratory infection, pleural effusion etc. Initial workup will be conducted with hematologic labs plain film chest x-ray twelve-lead EKG COVID and flu swabs. Initial interventions include gentle crystalloid bolus, DuoNeb, IV steroids, antiemetics, acetaminophen, Toradol. Initial workup reviewed by me is a white count 11.5 with a left shift. VBG shows a normal CO2 and preserved pH. My informal interpretation of his plain film chest x-ray shows atelectasis/infiltrates in the bilateral lower lobes. Lactic acid was initially elevated 2.4. Patient is requiring 5 L by nasal cannula for an O2 sat of 90% currently. D-dimer was 0.43 and given that the patient is a bilateral lower extremity AKA and is on Plavix and Xarelto PE study was considered but deferred. Initial troponin 0.01. Flu and COVID are negative. Upon repeat evaluation has had no nausea vomiting or diarrhea since been in the ER. Patient given a 500 cc lactated Ringer's bolus in consideration of his history of heart failure. Patient's tachycardia is responsive to the fluid. Called hospital medicine at 1530 reached hospital medicine at 1530 however they are busy and will return phone call given this discussed the patient with hospital medicine I was consulted by the KIMO, and we discussed the complexity of the problems being addressed. I approved the treatment and management plan for this patient's care in the emergency department, thus performing a substantive portion of the medical decision making. Patient admitted with concern for sepsis in the setting of likely pneumonia. Kanwal Villavicencio, Critical Care <BRIAN Moralez - Last Filed: 10/18/23 16:12> Critical Care Time Critical Care Time: No
--- NOTE | 2023-10-18 14:09 | XR_ITS ---
FINAL REPORT CLINICAL HISTORY: Acute hypoxemic respiratory failure COMPARISON: 01/26/2023 FINDINGS: A single PA view of the chest was obtained. There is no prior exam for comparison. The cardiac and mediastinal silhouettes are within normal limits. There are low lung volumes with bibasilar opacities new since prior. Findings are favored to represent atelectasis, pneumonia not excluded. There is no effusion or pneumothorax. IMPRESSION: Atelectasis versus pneumonia. Reviewed, Interpreted and Dictated by Guerda Marshall MD Transcribed by Amarilis Ramos Authenticated and [facility]
[2023-10-18] MEDS: IPRATROPIUM/ALBUTEROL 3 ML NEB IH ×2 (14:16→23:06)
[2023-10-18] MEDS: DEXAMETHASONE 4MG/ML 1ML VIAL 10 MG IV (14:17)
[2023-10-18 14:27] LABS: Coronavirus 19, PCR Not Detected (NotDetected); Influenza A, PCR Not Detected (NotDetected); Influenza B, PCR Not Detected (NotDetected)
[2023-10-18] MEDS: KETOROLAC 30MG/ML VIAL 15 MG IV (14:32)
[2023-10-18] MEDS: RINGERS SOLUTION,LACTATED 500 ML 999 ML IV (14:32)
[2023-10-18] MEDS: FUROSEMIDE 100MG/10ML VIAL 80 MG IV (14:32)
[2023-10-18] MEDS: ACETAMINOPHEN 1,000MG/100ML VIAL 1000 MG IV (14:32)
[2023-10-18 14:33] LABS: Alanine Aminotransferase 35 U/L (12-78); Albumin Level 3.6 g/dl (3.5-5.0); Alkaline Phosphatase 83 U/L (38-126); Anion Gap 10.5 mEq/L (5-15); Aspartate Amino Transferase 36 U/L (17-59); Bilirubin,Total 0.8 mg/dl (0.2-1.3); Blood Urea Nitrogen 34 mg/dl (9-20); Calcium 8.6 mg/dl (8.4-10.2); Carbon Dioxide 24 mmol/L (22.0-30.0); Chloride 111 mmol/L (98-107); Creatinine Clearance Estimated 61 mL/min (50-200); Estimated Glomerular Filt Rate 74 ml/min (>60); GFR (African American) 90 ML/MIN (>60); Globulin 3.5 g/dL (1.3-3.2); Glucose 139 mg/dl (74-100); Potassium 4.5 mmoL/L (3.5-5.1); Sodium 141 mmol/L (136-145); Total Protein,Serum 7.1 g/dl (6.3-8.2)
[2023-10-18 14:37] LABS: Lactic Acid 2.4 mmol/L (0.7-2.1)
[2023-10-18 14:38] LABS: Basophils % 0.3 % (0.1-2.0); Eosinophils % 0.3 % (0.1-12.0); Hematocrit 45.7 % (42.0-52.0); Hemoglobin 14.5 g/dL (14.1-18.0); Lymphocytes # 0.7 K/mm3 (0.7-4.5); Lymphocytes % 5.8 % (10-50); Mean Corpuscular HGB Conc 31.7 g/dL (31.8-35.4); Mean Corpuscular Hemoglobin 30.9 pg (27.0-31.2); Mean Corpuscular Volume 97.5 fl (80-94); Mean Platelet Volume 8.7 fl (7.4-10.4); Monocytes # 0.4 K/mm3 (0.1-1.0); Monocytes % 3.7 % (1.7-9.3); Neutrophils # 10.5 K/mm3 (1.8-7.8); Neutrophils % 89.9 % (37.0-80.0); Platelet Count 225 K/mm3 (142-424); Red Blood Count 4.69 M/mm3 (4.60-6.20); Red Cell Distribution Width 14.9 % (11.5-17.5); White Blood Count 11.7 K/mm3 (4.8-10.8)
[2023-10-18 14:39] LABS: D-Dimer 0.43 ug/mL (0.0-0.5)
[2023-10-18 14:45] LABS: VBG Base Excess -6.8 mmol/L (-2.4-2.3); VBG HCO3 19.4 mmol/L (23-30); VBG Oxygen Saturation 94.7 % (50-70); VBG PCO2 38.6 mmol/L (35-51); VBG PH 7.32 mmol/L (7.31-7.41); VBG PO2 76.2 mmol/L (28-40); VBG Total CO2 20.5 mmol/L (23-27)
[2023-10-18 14:46] LABS: Troponin I 0.01 ng/ml (0.00-0.034)
[2023-10-18 14:46] LABS: Lactate Venous 2.9 mmol/L (0.4-2.0)
[2023-10-18 14:57] LABS: Magnesium 1.8 mg/dl (1.6-2.3)
[2023-10-18 15:18] LABS: MANUAL DIFFERENTIAL MANUAL DIFFERENTIAL (MANUAL DIFF)
[2023-10-18 15:36] LABS: NT Pro Brain Natriuretic Pep. 627 pg/mL (0-125)
[2023-10-18] MEDS: CEFTRIAXONE SODIUM 1 GM in 0.9 % SODIUM CHLORIDE 50 ML IV (15:42)
[2023-10-18 15:48] LABS: Procalcitonin 0.123 ng/mL (0.0-2.0)
--- NOTE | 2023-10-18 16:08 | PC.NURSE ---
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
--- NOTE | 2023-10-18 16:37 | PC.NURSE ---
ATTEMPTED TO GIVE REPORT, NURSE UNAVAILABLE AT THIS TIME
--- NOTE | 2023-10-18 16:50 | PC.NURSE ---
Report called to RHIANNON Saenz on Med Surg.
--- NOTE | 2023-10-18 16:51 | PC.NURSE ---
Planner Chief called. There will be a bed change so patient's ability to be moved to his room will take a little longer.
[2023-10-18 17:02] LABS: Lymphocytes % 9 % (10-50); Monocytes % 3 % (2-9); Neutrophils % 88 % (42-76); Platelet Estimate Normal; Total Cells Counted 100
[2023-10-18 17:03] LABS: Anisocytosis 1+; Hypochromasia 1+
[2023-10-18] MEDS: AZITHROMYCIN 500 MG in 0.9 % SODIUM CHLORIDE 250 ML 250 MG IV (18:02)
[2023-10-18 18:22] LABS: Reflex Lactic Add Lactic Reflex
[2023-10-18] MEDS: HEPARIN SODIUM 5,000 UNIT/ML VIAL 5000 UNIT SQ (18:48)
[2023-10-18 18:52] LABS: Troponin I 0.02 ng/ml (0.00-0.034)
--- NOTE | 2023-10-18 19:05 | PC.NURSE ---
Patient new admit to unit. Patiernt a&[id number] vss on [id number]
--- NOTE | 2023-10-18 19:49 | P.HP_ITS ---
History of Present Illness *Admission Date: 10/18/23 *History of present illness: This is a 68-year-old male who presents initially with chief complaint of nausea vomiting diarrhea. Patient reports that I started feeling bad last night but cannot elucidate. Patient states that he had an upset stomach starting this morning first drank a carbonated dark soda and then drank a clear carbonated soda at which point he threw up. Patient denies aspiration. He does have a past medical history of peripheral vascular disease, coronary artery disease status post PCI with stents, CHF, hypertension, hyperlipidemia,, COPD not on chronic oxygen and is a bilateral [id number] amputee. Patient currently denies chest pain fever chills hemoptysis hematochezia melena hematemesis. [facility] Disclaimer: The information contained in this section may have been updated after the patient was seen, as this information can be updated by other users. Medical History (Updated 10/19/23 @ 13:25 by Reginald Hooks MD) Abnormal EKG Abnormal stress test Acute exacerbation of chronic obstructive pulmonary disease (COPD) Below-knee amputation of left lower extremity Below-knee amputation of right lower extremity Cardiomyopathy, ischemic Carotid artery stenosis CHF (congestive heart failure) COPD (chronic obstructive pulmonary disease) Dyspnea GERD (gastroesophageal reflux disease) Hemiplegia and hemiparesis following cerebral infarction affecting left non- dominant side Hoarseness Left arm pain Myocardial infarction PAF (paroxysmal atrial fibrillation) Peripheral arterial disease Peripheral vascular disease, unspecified Pneumonia Protein calorie malnutrition Pulmonary emphysema Systolic heart failure Transient cerebral ischemic attack, unspecified Vision changes Surgical History History of heart artery stent Family History Other Myocardial infarction acute Social History (Updated 08/24/23 @ 15:05 by Karen Lin) Smoking Status: Unknown if ever smoked second hand exposure: No alcohol intake: never substance use type: denies use current occupational status: disabled Travel in the last 8 weeks: None household members: significant other housing: detention current occupational exposures/hazards: No caffeine: Yes Review of Systems Review of Systems Review of systems:: pertinent systems reviewed and negative unless documented below Meds Home Medications and Allergies Home Medications Medication Instructions Recorded Confirmed Type gabapentin 400 mg capsule 400 mg PO DAILY Pain 10/06/20 10/19/23 History atorvastatin 80 mg tablet 80 mg PO HS Cholesterol 05/15/22 10/19/23 History cetirizine 10 mg tablet 10 mg PO DAILY Allergy symptoms 05/15/22 10/19/23 History clopidogrel 75 mg tablet 75 mg PO DAILY CVA 05/15/22 10/19/23 History famotidine 20 mg tablet 20 mg PO BID Acid Reflux 05/15/22 10/19/23 History nystatin 100,000 unit/gram topical 10,000 unit topical BID 10/18/23 10/19/23 History powder (Nystop) apixaban 5 mg tablet 5 mg PO BID Blood thinner/CVA 10/19/23 10/19/23 History duloxetine 20 mg capsule,delayed 20 mg PO DAILY Mood 10/19/23 10/19/23 History release esomeprazole magnesium 20 mg 20 mg PO DAILY Acid Reflux 10/19/23 10/19/23 History capsule,delayed release methocarbamol 750 mg tablet 750 mg PO BID Muscle Spasm 10/19/23 10/19/23 History metoprolol tartrate 25 mg tablet 12.5 mg PO DAILY High Blood 10/19/23 10/19/23 History Pressure sacubitril 24 mg-valsartan 26 mg 1 tab PO BID High Blood Pressure 10/19/23 10/19/23 History tablet (Entresto) New Prescriptions to Start Prescriptions: Allergies Allergy/AdvReac Type Severity Reaction Status Date / Time sulfamethoxazole Allergy Intermediate Verified 10/18/23 18:14 [From Bactrim] trimethoprim [From Bactrim] Allergy Intermediate Verified 10/18/23 18:14 zolpidem [From Ambien] Allergy Unknown PT STATES Verified 10/18/23 18:14 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 Exam Data for Last 24 hours Vital signs and Labs for Last 24 Hours: Temp Pulse Resp BP Pulse Ox O2 Del Method O2 Flow Rate 99.0 F 100 H 18 90/42 L 92 L Nasal Cannula 5 10/18/23 17:51 10/18/23 17:51 10/18/23 17:51 10/18/23 17:51 10/18/23 17:51 10/18/23 17:51 10/18/23 17:51 Laboratory Results - last 24 hr 10/18/23 14:00: SARS-CoV-2 (PCR) Not detected, Influenza A Untype (PCR) Not detected, Influenza Type B (PCR) Not detected 10/18/23 14:15: WBC 11.7 H, RBC 4.69, Hgb 14.5, Hct 45.7, MCV 97.5 H, MCH 30.9, MCHC 31.7 L, RDW 14.9, Plt Count 225, MPV 8.7, Neut % (Auto) 89.9 H, Lymph % (Auto) 5.8 L, [place] % (Auto) 3.7, Eos % (Auto) 0.3, Baso % (Auto) 0.3, Neut # (Auto) 10.5 H, Lymph # (Auto) 0.7, [place] # (Auto) 0.4, Eos # (Auto) 0.0, Baso # (Auto) 0.0, Total Counted 100, Neutrophils % (Manual) 88 H, Lymphocytes % (Manual) 9 L, Monocytes % (Manual) 3, Platelet Estimate Normal, Hypochromasia 1+, Anisocytosis 1+, D-Dimer 0.43, Sodium 141, Potassium 4.5, Chloride 111 H, Carbon Dioxide 24, Anion Gap 10.5, BUN 34 H, Creatinine 1.00, Estimated Creat Clear 61, Estimated GFR 74, Est GFR ( Amer) 90, Glucose 139 H, Lactate 2.4 H, Calcium 8.6, Magnesium 1.8, Total Bilirubin 0.8, AST 36, ALT 35, Alkaline Phosphatase 83, Troponin I 0.01, NT-Pro-B Natriuret Pep 627 H, Total Protein 7.1, Albumin 3.6, Globulin 3.5 H, Albumin/Globulin Ratio 1.0 L, Procalcitonin 0.123 10/18/23 14:35: VBG Lactic Acid 2.9 H 10/18/23 14:40: VBG pH 7.32, VBG pCO2 38.6, VBG pO2 76.2 H, VBG HCO3 19.4 L, VBG Total CO2 20.5 L, VBG O2 Saturation 94.7 H, VBG Base Excess -6.8 L 10/18/23 17:35: Troponin I 0.02 I & O for Last 24 hours: Intake & Output 10/15/23 10/16/23 10/17/23 10/18/23 23:59 23:59 23:59 23:59 Intake Total 270 / 270 Balance 270 / 270 Weight 57.351 kg Constitutional Constitutional: no acute distress *Routine HEENT Exam Head: Present normocephalic Eye: Present EOMI and PERRL ENT: Present mucous membranes dry *Routine Neck Exam Neck: Absent JVD *Routine Respiratory Exam Respiratory: Present decreased breath sounds *Routine Cardiovascular Exam Cardiovascular: Present RRR and murmur *Routine Abdominal Exam Abdominal: Present soft *Routine Rectal Exam Rectal:: deferred *Routine Genitalia Exam Genitalia:: normal male *Routine Extremities Exam Extremities: Present amputation Routine Back/Spine/Pelvis Exam Back/Spine: Present paraspinal tenderness *Routine Skin Exam Skin: Present intact *Routine Neurological Exam Neurological: Present alert, oriented X3 and CN II-XII intact Routine Psychiatric Exam Psychiatric: Present cooperative Additional findings Additional findings: has distended bladder Assessment and Plan *Assessment and plan (1) Acute hypoxemic respiratory failure: Status: Acute Category: Medical Code(s): J96.01 - Acute respiratory failure with hypoxia (2) Community acquired pneumonia: Status: Acute Qualifiers: Laterality: unspecified laterality Qualified Code(s): J18.9 - Pneumonia, unspecified organism Category: Medical Code(s): J18.9 - Pneumonia, unspecified organism (3) Systolic heart failure: Status: Acute Qualifiers: Heart failure chronicity: unspecified Qualified Code(s): I50.20 - Unspecified systolic (congestive) heart failure Category: Medical Code(s): I50.20 - Unspecified systolic (congestive) heart failure (4) HLD (hyperlipidemia): Status: Chronic Qualifiers: Hyperlipidemia type: mixed hyperlipidemia Qualified Code(s): E78.2 - Mixed hyperlipidemia Category: Medical Code(s): E78.5 - Hyperlipidemia, unspecified (5) HTN (hypertension): Status: Chronic Qualifiers: Hypertension type: essential hypertension Qualified Code(s): I10 - Essential (primary) hypertension Category: Medical Code(s): I10 - Essential (primary) hypertension (6) CAD (coronary artery disease): Status: Chronic Qualifiers: Associated angina: with other forms of angina Coronary Disease- Associated Artery/Lesion type: [place] artery [place] vs. transplanted heart: [place] heart Qualified Code(s): I25.118 - Atherosclerotic heart disease of [place] coronary artery with other forms of angina pectoris Category: Medical Code(s): I25.10 - Atherosclerotic heart disease of [place] coronary artery without angina pectoris (7) S/P BKA (below knee amputation) bilateral: Status: Chronic Category: Surgical Code(s): Z89.512 - Acquired absence of left leg below knee; Z89.511 - Acquired absence of right leg below knee Plan 68-year-old male who presents initially with chief complaint of nausea vomiting diarrhea. hypoxia. Initial workup reviewed by me is a white count 11.5 with a left shift. VBG shows a normal CO2 and preserved pH. My informal interpretation of his plain film chest x-ray shows atelectasis/infiltrates in the bilateral lower lobes. Lactic acid was initially elevated 2.4. Patient is requiring 5 L by nasal cannula for an O2 sat of 90% currently. D-dimer was 0.43 and given that the patient is a bilateral lower extremity AKA and is on Plavix and Xarelto PE study was considered but deferred. Initial troponin 0.01. Flu and COVID are negative -Acute hypoxemic respiratory failure secondary to pneumonia: To rule out community-acquired versus aspiration pneumonia Versus CHF exacerbation: Admit patient for medical service. Pulmonology consult Aspiration precaution Started on Zithromax and ceftriaxone IV azithromycin one-time given with Lasix DuoNeb every 6 Monitor O2 saturation currently on 4 L nasal cannula weaning as tolerated Blood culture pending Repeat labs in the morning Monitor for sepsis and or acute organ deterioration Chronic current conditions: Hypertension hyperlipidemia CAD Resume and reconcile home medication Status post BKA bilateral PT OT for eval and treat mobilization Patient on Eliquis. And Protonix Full code Attending attestation Patient was seen and evaluated at the bedside myself, agree with KIMO note.
[2023-10-18 20:06] LABS: Lactic Acid Follow Up (RFLX 1) 1.9 mmol/L (0.7-2.1)
[2023-10-18 20:31] LABS: Troponin I 0.01 ng/ml (0.00-0.034)
[2023-10-19] VITALS (10 sets, daily range): BP systolic 96–132; BP diastolic 47–79; PULSE 74–96; RESP 16–24; TEMP 36.3–36.7; O2SAT 84–93; BMI 22.1
--- NOTE | 2023-10-19 05:50 | PC.NURSE ---
Patient resting in bed, woke up asking for cup of coffee; VS WNL; Venti 15L 50%; voices no concerns at this time.
[2023-10-19] MEDS: IPRATROPIUM/ALBUTEROL 3 ML NEB IH ×2 (06:41→11:18)
[2023-10-19 06:59] LABS: POC Glucose,Bedside 119 (70-110)
[2023-10-19 07:11] LABS: Basophils % 0.2 % (0.1-2.0); Hematocrit 40.8 % (42.0-52.0); Lymphocytes # 1.5 K/mm3 (0.7-4.5); Lymphocytes % 10.2 % (10-50); Mean Corpuscular HGB Conc 31.3 g/dL (31.8-35.4); Mean Corpuscular Hemoglobin 30.7 pg (27.0-31.2); Mean Platelet Volume 9.1 fl (7.4-10.4); Monocytes # 0.6 K/mm3 (0.1-1.0); Monocytes % 3.9 % (1.7-9.3); Neutrophils # 12.9 K/mm3 (1.8-7.8); Neutrophils % 85.7 % (37.0-80.0); Platelet Count 198 K/mm3 (142-424); Red Blood Count 4.16 M/mm3 (4.60-6.20); Red Cell Distribution Width 14.9 % (11.5-17.5)
[2023-10-19 07:12] LABS: Hemoglobin 12.8 g/dL (14.1-18.0); MANUAL DIFFERENTIAL MANUAL DIFFERENTIAL (MANUAL DIFF)
[2023-10-19 07:33] LABS: Anion Gap 11.1 mEq/L (5-15); Blood Urea Nitrogen 40 mg/dl (9-20); Calcium 8.3 mg/dl (8.4-10.2); Carbon Dioxide 25 mmol/L (22.0-30.0); Chloride 108 mmol/L (98-107); Creatinine Clearance Estimated 59 mL/min (50-200); Estimated Glomerular Filt Rate 74 ml/min (>60); GFR (African American) 90 ML/MIN (>60); Glucose 120 mg/dl (74-100); Potassium 4.1 mmoL/L (3.5-5.1); Sodium 140 mmol/L (136-145)
[2023-10-19 07:39] LABS: Lymphocytes % 9 % (10-50); Monocytes % 3 % (2-9); Neutrophils % 88 % (42-76); Platelet Estimate Normal; RBC Morphology Normal; Total Cells Counted 100
--- NOTE | 2023-10-19 07:42 | SW/DCPLANNER ---
Addendum entered by Maeve Amaral 10/19/23 08:22: Updated patient information has been faxed to Kanwal w/ [facility]. Original Note: This patient currently resides at [facility] level of care. I will continue to follow up w/ Kanwal at [facility] until patient is medically stable for discharge. Discharge date is unknown at this time.
--- NOTE | 2023-10-19 09:32 | P.CONPHA_ITS ---
Pharmacy Intervention Comments: MEDICATION RECONCILIATION COMPLETED ON PATIENT USING MAR FROM ALF. -MARILYNN TRACEY, [place]
--- NOTE | 2023-10-19 09:32 | HMH.PHAINT1 ---
Pharmacy Intervention Comments: MEDICATION RECONCILIATION COMPLETED ON PATIENT USING MAR FROM [facility]. -MARILYNN TRACEY, [place]
--- NOTE | 2023-10-19 09:53 | EXP.PULM.CON ---
History of Present Illness History of present illness: Mr. Crews is a 68-year-old with reported history of CAD status post PCI, CHF rEF 40-45%, diastolic dysfunction, hypertension, dyslipidemia COPD presented to the ER with chief complaints of nausea vomiting and diarrhea also found to be in respiratory distress upon presentation and pulmonary was called for further evaluation and management. [facility] Disclaimer: The information contained in this section may have been updated after the patient was seen, as this information can be updated by other users. Medical History (Updated 10/19/23 @ 12:15 by Reginald Hooks MD) Abnormal EKG Abnormal stress test Acute exacerbation of chronic obstructive pulmonary disease (COPD) Below-knee amputation of left lower extremity Below-knee amputation of right lower extremity Cardiomyopathy, ischemic Carotid artery stenosis CHF (congestive heart failure) COPD (chronic obstructive pulmonary disease) Dyspnea GERD (gastroesophageal reflux disease) Hemiplegia and hemiparesis following cerebral infarction affecting left non-dominant side Hoarseness Left arm pain Myocardial infarction PAF (paroxysmal atrial fibrillation) Peripheral arterial disease Peripheral vascular disease, unspecified Pneumonia Protein calorie malnutrition Systolic heart failure Transient cerebral ischemic attack, unspecified Vision changes Surgical History History of heart artery stent Family History Other Myocardial infarction acute Social History (Updated 08/24/23 @ 15:05 by Karen Lin) Smoking Status: Unknown if ever smoked second hand exposure: No alcohol intake: never substance use type: denies use current occupational status: disabled Travel in the last 8 weeks: None household members: significant other housing: half-way current occupational exposures/hazards: No caffeine: Yes Review of Systems Constitutional Constitutional: Reports anorexia, Reports body ache(s) and Reports fatigue Eyes Eyes: Denies eye discharge, Denies dry eyes, Denies irritation and Denies itchy eyes ENT Ears, Nose, Mouth, and Throat: Denies epistaxis, Denies facial pain, Denies lip swelling and Denies throat swelling *Cardiovascular Cardiovascular: Reports dyspnea, Reports dyspnea on exertion and Reports orthopnea *Respiratory Respiratory: Reports chest congestion, Reports cough, Reports dyspnea, Reports dyspnea on exertion, Denies excessive phlegm production, Denies hemoptysis, Denies pain on inspiration, Denies pain with cough and Reports wheezing *Gastrointestinal Gastrointestinal: Denies abdominal pain, Denies belching and Denies cramping *Musculoskeletal Musculoskeletal: Reports back pain, Reports myalgias and Reports other (No small joint swelling or Pain) Psychiatric Psychiatric: Denies homicidal ideation and Denies suicidal ideation Endocrine Endocrine: Reports fatigue and Denies heat intolerance Hematologic/Lymphatic Hematologic/Lymphatic: Denies easy bleeding and Denies lymphadenopathy Allergic/Immunologic Allergic/Immunologic: Denies itchy eyes, Denies lip swelling, Denies throat swelling and Reports wheezing Pulmonology Exam Inpatient Vital signs and Labs for Last 24 Hours: Temp Pulse Resp BP Pulse Ox O2 Del Method O2 Flow Rate 97.3 F L 96 H 16 115/63 89 L Simple Mask 15 10/19/23 07:57 10/19/23 07:57 10/19/23 07:57 10/19/23 07:57 10/19/23 07:57 10/19/23 07:57 10/19/23 07:57 FiO2 50 10/19/23 06:42 Laboratory Results - last 24 hr 10/18/23 14:00: SARS-CoV-2 (PCR) Not detected, Influenza A Untype (PCR) Not detected, Influenza Type B (PCR) Not detected 10/18/23 14:15: WBC 11.7 H, RBC 4.69, Hgb 14.5, Hct 45.7, MCV 97.5 H, MCH 30.9, MCHC 31.7 L, RDW 14.9, Plt Count 225, MPV 8.7, Neut % (Auto) 89.9 H, Lymph % (Auto) 5.8 L, [place] % (Auto) 3.7, Eos % (Auto) 0.3, Baso % (Auto) 0.3, Neut # (Auto) 10.5 H, Lymph # (Auto) 0.7, [place] # (Auto) 0.4, Eos # (Auto) 0.0, Baso # (Auto) 0.0, Total Counted 100, Neutrophils % (Manual) 88 H, Lymphocytes % (Manual) 9 L, Monocytes % (Manual) 3, Platelet Estimate Normal, Hypochromasia 1+, Anisocytosis 1+, D-Dimer 0.43, Sodium 141, Potassium 4.5, Chloride 111 H, Carbon Dioxide 24, Anion Gap 10.5, BUN 34 H, Creatinine 1.00, Estimated Creat Clear 61, Estimated GFR 74, Est GFR ( Amer) 90, Glucose 139 H, Lactate 2.4 H, Calcium 8.6, Magnesium 1.8, Total Bilirubin 0.8, AST 36, ALT 35, Alkaline Phosphatase 83, Troponin I 0.01, NT-Pro-B Natriuret Pep 627 H, Total Protein 7.1, Albumin 3.6, Globulin 3.5 H, Albumin/Globulin Ratio 1.0 L, Procalcitonin 0.123 10/18/23 14:35: VBG Lactic Acid 2.9 H 10/18/23 14:40: VBG pH 7.32, VBG pCO2 38.6, VBG pO2 76.2 H, VBG HCO3 19.4 L, VBG Total CO2 20.5 L, VBG O2 Saturation 94.7 H, VBG Base Excess -6.8 L 10/18/23 17:35: Troponin I 0.02 10/18/23 19:45: Lactate 1.9 10/18/23 19:50: Troponin I 0.01 10/19/23 06:20: WBC 15.0 H D, RBC 4.16 L, Hgb 12.8 L D, Hct 40.8 L, MCV 98.0 H, MCH 30.7, MCHC 31.3 L, RDW 14.9, Plt Count 198, MPV 9.1, Neut % (Auto) 85.7 H, Lymph % (Auto) 10.2, [place] % (Auto) 3.9, Eos % (Auto) 0.0 L, Baso % (Auto) 0.2, Neut # (Auto) 12.9 H, Lymph # (Auto) 1.5, [place] # (Auto) 0.6, Eos # (Auto) 0.0, Baso # (Auto) 0.0, Total Counted 100, Neutrophils % (Manual) 88 H, Lymphocytes % (Manual) 9 L, Monocytes % (Manual) 3, Platelet Estimate Normal, RBC Morphology Normal, Sodium 140, Potassium 4.1, Chloride 108 H, Carbon Dioxide 25, Anion Gap 11.1, BUN 40 H, Creatinine 1.00, Estimated Creat Clear 59, Estimated GFR 74, Est GFR ( Amer) 90, Glucose 120 H, Calcium 8.3 L 10/19/23 06:49: POC Glucose 119 H I & O for Labs for Last 24 Hours: Intake & Output 10/16/23 10/17/23 10/18/23 10/19/23 23:59 23:59 23:59 23:59 Intake Total 270 / 270 240 / 240 Balance 270 / 270 240 / 240 Weight 126 lb 7 oz 129 lb 11.2 oz Constitutional: Present moderate distress Head: Present normocephalic and atraumatic ENT: Present normal exam, normal oropharynx and mucous membranes moist Neck: Present normal inspection and full ROM Respiratory: Present able to speak in complete sentences; Absent respiratory distress, wheezes or crackles Cardiac: Present S1/S2, Tachycardia and radial pulses present GI: Present soft and distention; Absent tenderness or guarding Skin: Present intact; Absent cyanosis or jaundice Neuro: Present alert, awake and oriented x 3 Extremities: Present normal inspection; Absent clubbing or cyanosis Comment:: Lower extremity amputation Psychiatric: Present normal affect and cooperative Meds Home Medications and Allergies Home Medications Medication Instructions Recorded Confirmed Type gabapentin 400 mg capsule 400 mg PO DAILY Pain 10/06/20 10/19/23 History atorvastatin 80 mg tablet 80 mg PO HS Cholesterol 05/15/22 10/19/23 History cetirizine 10 mg tablet 10 mg PO DAILY Allergy symptoms 05/15/22 10/19/23 History clopidogrel 75 mg tablet 75 mg PO DAILY CVA 05/15/22 10/19/23 History famotidine 20 mg tablet 20 mg PO BID Acid Reflux 05/15/22 10/19/23 History nystatin 100,000 unit/gram topical 10,000 unit topical BID 10/18/23 10/19/23 History powder (Nystop) apixaban 5 mg tablet 5 mg PO BID Blood thinner/CVA 10/19/23 10/19/23 History duloxetine 20 mg capsule,delayed 20 mg PO DAILY Mood 10/19/23 10/19/23 History release esomeprazole magnesium 20 mg 20 mg PO DAILY Acid Reflux 10/19/23 10/19/23 History capsule,delayed release methocarbamol 750 mg tablet 750 mg PO BID Muscle Spasm 10/19/23 10/19/23 History metoprolol tartrate 25 mg tablet 12.5 mg PO DAILY High Blood 10/19/23 10/19/23 History Pressure sacubitril 24 mg-valsartan 26 mg 1 tab PO BID High Blood Pressure 10/19/23 10/19/23 History tablet (Entresto) New Prescriptions to Start Prescriptions: Allergies Allergy/AdvReac Type Severity Reaction Status Date / Time sulfamethoxazole Allergy Intermediate Verified 10/18/23 18:14 [From Bactrim] trimethoprim [From Bactrim] Allergy Intermediate Verified 10/18/23 18:14 zolpidem [From Ambien] Allergy Unknown PT STATES Verified 10/18/23 18:14 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 Results Laboratory Findings 10/19/23 06:20 10/19/23 06:20 PT/INR, D-dimer D-Dimer 0.43 ug/mL (0.0-0.5) 10/18/23 14:15 Abnormal lab findings: Abnormal Labs 10/18/23 10/18/23 10/18/23 14:15 14:35 14:40 WBC 11.7 H RBC Hgb Hct MCV 97.5 H MCHC 31.7 L Neut % (Auto) 89.9 H Lymph % (Auto) 5.8 L Eos % (Auto) Neut # (Auto) 10.5 H Neutrophils % (Manual) 88 H Lymphocytes % (Manual) 9 L VBG pO2 76.2 H VBG HCO3 19.4 L VBG Total CO2 20.5 L VBG O2 Saturation 94.7 H VBG Base Excess -6.8 L VBG Lactic Acid 2.9 H Chloride 111 H BUN 34 H Glucose 139 H POC Glucose Lactate 2.4 H Calcium NT-Pro-B Natriuret Pep 627 H Globulin 3.5 H Albumin/Globulin Ratio 1.0 L 10/19/23 10/19/23 06:20 06:49 WBC 15.0 H D RBC 4.16 L Hgb 12.8 L D Hct 40.8 L MCV 98.0 H MCHC 31.3 L Neut % (Auto) 85.7 H Lymph % (Auto) Eos % (Auto) 0.0 L Neut # (Auto) 12.9 H Neutrophils % (Manual) 88 H Lymphocytes % (Manual) 9 L VBG pO2 VBG HCO3 VBG Total CO2 VBG O2 Saturation VBG Base Excess VBG Lactic Acid Chloride 108 H BUN 40 H Glucose 120 H POC Glucose 119 H Lactate Calcium 8.3 L NT-Pro-B Natriuret Pep Globulin Albumin/Globulin Ratio Assessment and Plan *Assessment and plan (1) Acute respiratory failure with hypoxia: Status: Resolved Category: Medical Code(s): J96.01 - Acute respiratory failure with hypoxia Plan Mr. Crews is a 68-year-old with reported history of CAD status post PCI, CHF rEF 40-45%, diastolic dysfunction, hypertension, dyslipidemia COPD presented to the ER with chief complaints of nausea vomiting and diarrhea also found to be in respiratory distress upon presentation and pulmonary was called for further evaluation and management. Neutrophilic leukocytosis upon admission. Afebrile. Hemodynamically stable. D-dimer within normal limits. Chest x-ray upon admission lower lobe infiltrative changes. Vascular congestion noted. No dense consolidation/airspace disease noted. Patient on admission was initiated on ceftriaxone azithromycin for COPD exacerbation/hospital-acquired pneumonia. Also receiving diuretics. On initial examination patient does not appear to be in any respiratory distress. No significant wheezing noted on auscultation. Patient at baseline only using albuterol on as-needed basis. Plan: Incentive spirometry Continue Cefriaxone and azithromycin pending culture results. Antibiotics can be weaned to cefdinir upon discharge to complete total of 5-day course Continue DuoNebs every 6 hours on as-needed basis. Patient can be discharged on Combivent every 6 hours on as-needed basis upon discharge. # Thank you for involving pulmonary in this patient care. João follow the patient in pulmonary clinic in 4 weeks with a full PFT walk testing prior to clinic visit.
[2023-10-19 10:59] LABS: NT Pro Brain Natriuretic Pep. 385 pg/mL (0-125)
[2023-10-19 11:07] LABS: Procalcitonin 0.212 ng/mL (0.0-2.0)
[2023-10-19] MEDS: SACUBITRIL/VALSARTAN 24-26MG TABLET 1 EACH PO ×2 (11:43→20:23)
[2023-10-19] MEDS: APIXABAN 5MG TABLET 5 MG PO ×2 (11:43→20:23)
[2023-10-19] MEDS: CLOPIDOGREL 75MG TAB 75 MG PO (11:43)
[2023-10-19] MEDS: DULOXETINE 30MG CAPSULE.DR 30 MG PO (11:43)
[2023-10-19] MEDS: METOPROLOL TARTRATE 25MG TABLET 12.5 MG PO (11:43)
[2023-10-19] MEDS: GABAPENTIN 400MG CAPSULE 400 MG PO (11:43)
[2023-10-19] MEDS: CEFTRIAXONE SODIUM 1 GM in 0.9 % SODIUM CHLORIDE 50 ML IV (16:07)
[2023-10-19] MEDS: AZITHROMYCIN 500 MG in 0.9 % SODIUM CHLORIDE 250 ML 250 MG IV (16:07)
--- NOTE | 2023-10-19 17:38 | EXP.PN ---
Subjective *Date: 10/19/23 *Time: 17:42 Interval history: he is feeling SOB, denied CP, N/V. he is on Venti mask Exam Data for Last 24 hours Vital signs and Labs for Last 24 Hours: Temp Pulse Resp BP Pulse Ox O2 Del Method O2 Flow Rate 97.6 F 92 H 20 128/71 84 L Nasal Cannula 2 10/19/23 15:59 10/19/23 15:59 10/19/23 15:59 10/19/23 15:59 10/19/23 15:59 10/19/23 17:00 10/19/23 17:00 FiO2 50 10/19/23 06:42 Laboratory Results - last 24 hr 10/18/23 17:35: Troponin I 0.02 10/18/23 19:45: Lactate 1.9 10/18/23 19:50: Troponin I 0.01 10/19/23 06:20: WBC 15.0 H D, RBC 4.16 L, Hgb 12.8 L D, Hct 40.8 L, MCV 98.0 H, MCH 30.7, MCHC 31.3 L, RDW 14.9, Plt Count 198, MPV 9.1, Neut % (Auto) 85.7 H, Lymph % (Auto) 10.2, [place] % (Auto) 3.9, Eos % (Auto) 0.0 L, Baso % (Auto) 0.2, Neut # (Auto) 12.9 H, Lymph # (Auto) 1.5, [place] # (Auto) 0.6, Eos # (Auto) 0.0, Baso # (Auto) 0.0, Total Counted 100, Neutrophils % (Manual) 88 H, Lymphocytes % (Manual) 9 L, Monocytes % (Manual) 3, Platelet Estimate Normal, RBC Morphology Normal, Sodium 140, Potassium 4.1, Chloride 108 H, Carbon Dioxide 25, Anion Gap 11.1, BUN 40 H, Creatinine 1.00, Estimated Creat Clear 59, Estimated GFR 74, Est GFR ( Amer) 90, Glucose 120 H, Calcium 8.3 L, NT-Pro-B Natriuret Pep 385 H, Procalcitonin 0.212 10/19/23 06:49: POC Glucose 119 H I & O for Last 24 hours: Intake & Output 10/16/23 10/17/23 10/18/23 03/01/24 23:59 23:59 23:59 23:59 Intake Total 270 / 270 510 / 510 Output Total 500 / 500 Balance 270 / 270 Weight 57.351 kg 58.83 kg Constitutional Constitutional: no acute distress *Routine HEENT Exam Head: Present normocephalic Eye: Present EOMI and PERRL ENT: Present mucous membranes moist *Routine Neck Exam Neck: Present supple; Absent lymphadenopathy *Routine Respiratory Exam Respiratory: Present distant breath sounds and diminished air movement *Routine Cardiovascular Exam Cardiovascular: Present RRR *Routine Abdominal Exam Abdominal: Present soft and normoactive bowel sounds; Absent tenderness *Routine Extremities Exam Extremities: Absent cyanosis, clubbing or edema *Routine Skin Exam Skin: Present warm; Absent rash *Routine Neurological Exam Neurological: Present alert and oriented X3 Assessment and Plan *Assessment and plan (1) Acute hypoxemic respiratory failure: Status: Acute Category: Medical Code(s): J96.01 - Acute respiratory failure with hypoxia (2) Community acquired pneumonia: Status: Acute Qualifiers: Laterality: unspecified laterality Qualified Code(s): J18.9 - Pneumonia, unspecified organism Category: Medical Code(s): J18.9 - Pneumonia, unspecified organism (3) Systolic heart failure: Status: Acute Qualifiers: Heart failure chronicity: unspecified Qualified Code(s): I50.20 - Unspecified systolic (congestive) heart failure Category: Medical Code(s): I50.20 - Unspecified systolic (congestive) heart failure (4) HLD (hyperlipidemia): Status: Chronic Qualifiers: Hyperlipidemia type: mixed hyperlipidemia Qualified Code(s): E78.2 - Mixed hyperlipidemia Category: Medical Code(s): E78.5 - Hyperlipidemia, unspecified (5) HTN (hypertension): Status: Chronic Qualifiers: Hypertension type: essential hypertension Qualified Code(s): I10 - Essential (primary) hypertension Category: Medical Code(s): I10 - Essential (primary) hypertension (6) CAD (coronary artery disease): Status: Chronic Qualifiers: Associated angina: with other forms of angina Coronary Disease-Associated Artery/Lesion type: [place] artery [place] vs. transplanted heart: [place] heart Qualified Code(s): I25.118 - Atherosclerotic heart disease of [place] coronary artery with other forms of angina pectoris Category: Medical Code(s): I25.10 - Atherosclerotic heart disease of [place] coronary artery without angina pectoris (7) S/P BKA (below knee amputation) bilateral: Status: Chronic Category: Surgical Code(s): Z89.512 - Acquired absence of left leg below knee; Z89.511 - Acquired absence of right leg below knee Plan 68-year-old male who presents initially with chief complaint of nausea vomiting diarrhea. hypoxia. Initial workup reviewed by me is a white count 11.5 with a left shift. VBG shows a normal CO2 and preserved pH. My informal interpretation of his plain film chest x-ray shows atelectasis/infiltrates in the bilateral lower lobes. Lactic acid was initially elevated 2.4. Patient is requiring 5 L by nasal cannula for an O2 sat of 90% currently. D-dimer was 0.43 and given that the patient is a bilateral lower extremity AKA and is on Plavix and Xarelto PE study was considered but deferred. Initial troponin 0.01. Flu and COVID are negative -Acute hypoxemic respiratory failure secondary to pneumonia: suspect concurrent CAP, acute CHF Pulmonology consult Aspiration precaution continue Zithromax and ceftriaxone IV azithromycin continue IV lasix DuoNeb every 6 Monitor O2 saturation currently on 4 L nasal cannula weaning as tolerated Blood culture pending Chronic current conditions: Hypertension hyperlipidemia CAD Resume and reconcile home medication Status post BKA bilateral PT OT for eval and treat mobilization Patient on Eliquis. Protonix Full code
[2023-10-19] MEDS: FUROSEMIDE 40MG/4ML VIAL 40 MG IV (18:18)
--- NOTE | 2023-10-19 18:23 | PC.NURSE ---
pt has been on RA the last 45 mins and maintained an o2 sat >90%. cont pusle ox in place, will cont to monitor.
[2023-10-19] MEDS: PANTOPRAZOLE 40MG TABLET 40 MG PO (20:23)
[2023-10-19] MEDS: FAMOTIDINE 20MG TABLET 20 MG PO (20:23)
[2023-10-19] MEDS: ATORVASTATIN 40MG TABLET 80 MG PO (20:23)
[2023-10-20] VITALS (9 sets, daily range): BP systolic 102–126; BP diastolic 45–71; PULSE 59–94; RESP 16–19; TEMP 36.4–37.1; O2SAT 90–95; BMI 21.7
[2023-10-20] MEDS: ACETAMINOPHEN 325MG TAB 650 MG PO ×2 (01:40→21:44)
--- NOTE | 2023-10-20 06:34 | PC.NURSE ---
pt. has rested through the night, a&OX4, O2 sat was 86%-88% on RA, placed on 2L NC and o2 sat has been >90%, no other acute changes since previous assessment, no complaints have been voiced at this time, call button is in reach
[2023-10-20] MEDS: APIXABAN 5MG TABLET 5 MG PO ×2 (08:21→21:44)
[2023-10-20] MEDS: FUROSEMIDE 40MG/4ML VIAL 40 MG IV ×2 (08:21→16:40)
[2023-10-20] MEDS: METOPROLOL TARTRATE 25MG TABLET 12.5 MG PO (08:21)
[2023-10-20] MEDS: SACUBITRIL/VALSARTAN 24-26MG TABLET 1 EACH PO ×2 (08:21→21:45)
[2023-10-20] MEDS: DULOXETINE 30MG CAPSULE.DR 30 MG PO (08:21)
[2023-10-20] MEDS: CLOPIDOGREL 75MG TAB 75 MG PO (08:21)
[2023-10-20] MEDS: FAMOTIDINE 20MG TABLET 20 MG PO ×2 (08:21→21:44)
[2023-10-20] MEDS: GABAPENTIN 400MG CAPSULE 400 MG PO (08:21)
[2023-10-20 08:45] LABS: Anion Gap 8.7 mEq/L (5-15); Basophils % 0.5 % (0.1-2.0); Blood Urea Nitrogen 40 mg/dl (9-20); Calcium 8.4 mg/dl (8.4-10.2); Carbon Dioxide 28 mmol/L (22.0-30.0); Chloride 107 mmol/L (98-107); Creatinine Clearance Estimated 58 mL/min (50-200); Eosinophils # 0.1 K/mm3 (0.0-0.4); Eosinophils % 1.4 % (0.1-12.0); Estimated Glomerular Filt Rate 84 ml/min (>60); GFR (African American) 102 ML/MIN (>60); Glucose 93 mg/dl (74-100); Hematocrit 40.8 % (42.0-52.0); Hemoglobin 12.9 g/dL (14.1-18.0); Lymphocytes # 2.5 K/mm3 (0.7-4.5); Lymphocytes % 34.5 % (10-50); Mean Corpuscular HGB Conc 31.5 g/dL (31.8-35.4); Mean Corpuscular Hemoglobin 30.5 pg (27.0-31.2); Mean Corpuscular Volume 96.8 fl (80-94); Mean Platelet Volume 9.3 fl (7.4-10.4); Monocytes # 0.6 K/mm3 (0.1-1.0); Monocytes % 8.7 % (1.7-9.3); Neutrophils # 3.9 K/mm3 (1.8-7.8); Neutrophils % 54.9 % (37.0-80.0); Platelet Count 196 K/mm3 (142-424); Potassium 3.7 mmoL/L (3.5-5.1); Red Blood Count 4.21 M/mm3 (4.60-6.20); Red Cell Distribution Width 14.9 % (11.5-17.5); Sodium 140 mmol/L (136-145); White Blood Count 7.2 K/mm3 (4.8-10.8)
[2023-10-20] MEDS: IPRATROPIUM/ALBUTEROL 3 ML NEB IH (10:20)
[2023-10-20] MEDS: AZITHROMYCIN 250MG TABLET 500 MG PO (13:22)
[2023-10-20] MEDS: CEFTRIAXONE SODIUM 1 GM in 0.9 % SODIUM CHLORIDE 50 ML IV (16:40)
--- NOTE | 2023-10-20 17:20 | P.PN_ITS ---
Subjective *Date: 10/20/23 *Time: 17:20 Interval history: he is feeling little better, still on 2L O2, denied CP, N/V. he is weaned off of venti mask Exam Data for Last 24 hours Vital signs and Labs for Last 24 Hours: Temp Pulse Resp BP Pulse Ox O2 Del Method O2 Flow Rate 98.4 F 73 18 109/56 L 93 L Nasal Cannula 2 10/20/23 15:33 10/20/23 15:33 10/20/23 15:33 10/20/23 15:33 10/20/23 15:33 10/20/23 15:33 10/20/23 15:33 FiO2 50 10/19/23 06:42 Laboratory Results - last 24 hr 10/20/23 07:09: WBC 7.2 D, RBC 4.21 L, Hgb 12.9 L, Hct 40.8 L, MCV 96.8 H, MCH 30.5, MCHC 31.5 L, RDW 14.9, Plt Count 196, MPV 9.3, Neut % (Auto) 54.9, Lymph % (Auto) 34.5, [place] % (Auto) 8.7, Eos % (Auto) 1.4, Baso % (Auto) 0.5, Neut # (Auto) 3.9, Lymph # (Auto) 2.5, [place] # (Auto) 0.6, Eos # (Auto) 0.1, Baso # (Auto) 0.0, Sodium 140, Potassium 3.7, Chloride 107, Carbon Dioxide 28, Anion Gap 8.7, BUN 40 H, Creatinine 0.90, Estimated Creat Clear 58, Estimated GFR 84, Est GFR ( Amer) 102, Glucose 93, Calcium 8.4 I & O for Last 24 hours: Intake & Output 10/17/23 10/18/23 10/19/23 10/20/23 23:59 23:59 23:59 23:59 Intake Total 270 / 270 1150 / 1270 630 / 630 Output Total 900 / 900 200 / 200 Balance 270 / 270 250 / 370 430 / 430 Weight 57.351 kg 58.83 kg 57.788 kg Constitutional Constitutional: no acute distress *Routine HEENT Exam Head: Present normocephalic Eye: Present EOMI and PERRL ENT: Present mucous membranes moist *Routine Neck Exam Neck: Present supple; Absent lymphadenopathy *Routine Respiratory Exam Respiratory: Present diminished air movement *Routine Cardiovascular Exam Cardiovascular: Present RRR *Routine Abdominal Exam Abdominal: Present soft and normoactive bowel sounds; Absent tenderness *Routine Extremities Exam Extremities: Absent cyanosis, clubbing or edema *Routine Skin Exam Skin: Present warm; Absent rash *Routine Neurological Exam Neurological: Present alert and oriented X3 Assessment and Plan *Assessment and plan (1) Acute hypoxemic respiratory failure: Status: Acute Category: Medical Code(s): J96.01 - Acute respiratory failure with hypoxia (2) Community acquired pneumonia: Status: Acute Qualifiers: Laterality: unspecified laterality Qualified Code(s): J18.9 - Pneumonia, unspecified organism Category: Medical Code(s): J18.9 - Pneumonia, unspecified organism (3) Systolic heart failure: Status: Acute Qualifiers: Heart failure chronicity: unspecified Qualified Code(s): I50.20 - Unspecified systolic (congestive) heart failure Category: Medical Code(s): I50.20 - Unspecified systolic (congestive) heart failure (4) HLD (hyperlipidemia): Status: Chronic Qualifiers: Hyperlipidemia type: mixed hyperlipidemia Qualified Code(s): E78.2 - Mixed hyperlipidemia Category: Medical Code(s): E78.5 - Hyperlipidemia, unspecified (5) HTN (hypertension): Status: Chronic Qualifiers: Hypertension type: essential hypertension Qualified Code(s): I10 - Essential (primary) hypertension Category: Medical Code(s): I10 - Essential (primary) hypertension (6) CAD (coronary artery disease): Status: Chronic Qualifiers: Associated angina: with other forms of angina Coronary Disease- Associated Artery/Lesion type: [place] artery [place] vs. transplanted heart: [place] heart Qualified Code(s): I25.118 - Atherosclerotic heart disease of [place] coronary artery with other forms of angina pectoris Category: Medical Code(s): I25.10 - Atherosclerotic heart disease of [place] coronary artery without angina pectoris (7) S/P BKA (below knee amputation) bilateral: Status: Chronic Category: Surgical Code(s): Z89.512 - Acquired absence of left leg below knee; Z89.511 - Acquired absence of right leg below knee Plan 68-year-old male who presents initially with chief complaint of nausea vomiting diarrhea. hypoxia. Initial workup reviewed by me is a white count 11.5 with a left shift. VBG shows a normal CO2 and preserved pH. My informal interpretation of his plain film chest x-ray shows atelectasis/infiltrates in the bilateral lower lobes. Lactic acid was initially elevated 2.4. Patient is requiring 5 L by nasal cannula for an O2 sat of 90% currently. D-dimer was 0.43 and given that the patient is a bilateral lower extremity AKA and is on Plavix and Xarelto PE study was considered but deferred. Initial troponin 0.01. Flu and COVID are negative -Acute hypoxemic respiratory failure secondary to pneumonia: suspect concurrent CAP, acute CHF Pulmonology consult Aspiration precaution continue azithromycin and ceftriaxone continue IV lasix DuoNeb every 6 Monitor O2 saturation currently on 4 L nasal cannula weaning as tolerated Blood culture pending Chronic current conditions: Hypertension hyperlipidemia CAD Resume and reconcile home medication Status post BKA bilateral PT OT for eval and treat mobilization Patient on Eliquis. Protonix Full code likely DC tomorrow
--- NOTE | 2023-10-20 18:58 | PC.NURSE ---
pt on RA o2 sats maintains around 92-95% but occasionally drops to 88-89%. no c/o of soa n/v/p. pt stated my breathing feels alot better today .
[2023-10-20] MEDS: PANTOPRAZOLE 40MG TABLET 40 MG PO (21:44)
[2023-10-20] MEDS: ATORVASTATIN 40MG TABLET 80 MG PO (21:44)
[2023-10-21] VITALS: BP 109/51; PULSE 74; PULSE 80; RESP 17; TEMP 36.4; O2SAT 92; O2SAT 96
[2023-10-21 04:00] VITALS: BP 112/59; PULSE 74; RESP 16; TEMP 36.3; O2SAT 92; BMI 22.1
[2023-10-21 07:37] VITALS: BP 126/60; PULSE 86; RESP 16; TEMP 36.4; O2SAT 92
[2023-10-21 08:00] VITALS: PULSE 80
[2023-10-21 08:27] LABS: Anion Gap 8.7 mEq/L (5-15); Blood Urea Nitrogen 37 mg/dl (9-20); Calcium 8.6 mg/dl (8.4-10.2); Carbon Dioxide 30 mmol/L (22.0-30.0); Chloride 102 mmol/L (98-107); Creatinine Clearance Estimated 59 mL/min (50-200); Estimated Glomerular Filt Rate 96 ml/min (>60); GFR (African American) 116 ML/MIN (>60); Glucose 95 mg/dl (74-100); Potassium 3.7 mmoL/L (3.5-5.1); Sodium 137 mmol/L (136-145)
[2023-10-21] MEDS: SACUBITRIL/VALSARTAN 24-26MG TABLET 1 EACH PO (08:35)
[2023-10-21] MEDS: FAMOTIDINE 20MG TABLET 20 MG PO (08:35)
[2023-10-21] MEDS: FUROSEMIDE 40MG/4ML VIAL 40 MG IV (08:35)
[2023-10-21] MEDS: METOPROLOL TARTRATE 25MG TABLET 12.5 MG PO (08:35)
[2023-10-21] MEDS: GABAPENTIN 400MG CAPSULE 400 MG PO (08:35)
[2023-10-21] MEDS: CLOPIDOGREL 75MG TAB 75 MG PO (08:35)
[2023-10-21] MEDS: APIXABAN 5MG TABLET 5 MG PO (08:35)
[2023-10-21] MEDS: DULOXETINE 30MG CAPSULE.DR 30 MG PO (08:35)
[2023-10-21] MEDS: AZITHROMYCIN 250MG TABLET 500 MG PO (08:35)
[2023-10-21 08:42] LABS: Basophils # 0.1 K/mm3 (0-0.2); Basophils % 0.8 % (0.1-2.0); Eosinophils # 0.2 K/mm3 (0.0-0.4); Eosinophils % 3.6 % (0.1-12.0); Hematocrit 44.4 % (42.0-52.0); Lymphocytes # 2.2 K/mm3 (0.7-4.5); Lymphocytes % 32.5 % (10-50); Mean Corpuscular HGB Conc 31.5 g/dL (31.8-35.4); Mean Corpuscular Hemoglobin 30.7 pg (27.0-31.2); Mean Corpuscular Volume 97.3 fl (80-94); Mean Platelet Volume 9.7 fl (7.4-10.4); Monocytes # 0.7 K/mm3 (0.1-1.0); Monocytes % 9.8 % (1.7-9.3); Neutrophils # 3.5 K/mm3 (1.8-7.8); Neutrophils % 53.4 % (37.0-80.0); Platelet Count 209 K/mm3 (142-424); Red Blood Count 4.57 M/mm3 (4.60-6.20); Red Cell Distribution Width 14.9 % (11.5-17.5); White Blood Count 6.6 K/mm3 (4.8-10.8)
--- NOTE | 2023-10-21 10:44 | PC.NURSE ---
pts 02 at rest on ra 86%
--- NOTE | 2023-10-21 10:46 | EXP.DC.SUM ---
General Admission date:: 10/18/23 Discharge date: 10/21/23 HPI HPI HPI: This is a 68-year-old male who presents initially with chief complaint of nausea vomiting diarrhea. Patient reports that I started feeling bad last night but cannot elucidate. Patient states that he had an upset stomach starting this morning first drank a carbonated dark soda and then drank a clear carbonated soda at which point he threw up. Patient denies aspiration. He does have a past medical history of peripheral vascular disease, coronary artery disease status post PCI with stents, CHF, hypertension, hyperlipidemia,, COPD not on chronic oxygen and is a bilateral [id number] amputee. Patient currently denies chest pain fever chills hemoptysis hematochezia melena hematemesis. Hospital Course Hospital Course Hospital Course: Patient was seen and evaluated at the bedside on the day of discharge. Patient wishes to be discharged. All patient questions were answered and patient was given time to ask questions. Patient was discharged in stable condition. Patient understands that she can return to ER in case of any sudden changes in health. Total time spent on DC - 38 mins 68-year-old male who presents initially with chief complaint of nausea vomiting diarrhea. hypoxia. Initial workup reviewed by me is a white count 11.5 with a left shift. VBG shows a normal CO2 and preserved pH. My informal interpretation of his plain film chest x-ray shows atelectasis/infiltrates in the bilateral lower lobes. Lactic acid was initially elevated 2.4. Patient is requiring 5 L by nasal cannula for an O2 sat of 90% currently. D-dimer was 0.43 and given that the patient is a bilateral lower extremity AKA and is on Plavix and Xarelto PE study was considered but deferred. Initial troponin 0.01. Flu and COVID are negative -Acute hypoxemic respiratory failure secondary to pneumonia: suspect concurrent CAP, acute CHF DC on oral Abx with cefdinir Chronic current conditions: - stable Hypertension hyperlipidemia CAD Resume and reconcile home medication Status post BKA bilateraln - stable Patient on Eliquis. Protonix Full code Exam Data for Last 24 hours Vital signs and Labs for Last 24 Hours: Temp Pulse Resp BP Pulse Ox O2 Del Method O2 Flow Rate 97.6 F 80 16 126/60 92 L Nasal Cannula 2 10/21/23 07:37 10/21/23 08:00 10/21/23 07:37 10/21/23 07:37 10/21/23 07:37 10/21/23 08:00 10/21/23 08:00 FiO2 50 10/19/23 06:42 Laboratory Results - last 24 hr 10/21/23 07:50: WBC 6.6, RBC 4.57 L, Hgb 14.0 L, Hct 44.4, MCV 97.3 H, MCH 30.7, MCHC 31.5 L, RDW 14.9, Plt Count 209, MPV 9.7, Neut % (Auto) 53.4, Lymph % (Auto) 32.5, [place] % (Auto) 9.8 H, Eos % (Auto) 3.6, Baso % (Auto) 0.8, Neut # (Auto) 3.5, Lymph # (Auto) 2.2, [place] # (Auto) 0.7, Eos # (Auto) 0.2, Baso # (Auto) 0.1, Sodium 137, Potassium 3.7, Chloride 102, Carbon Dioxide 30, Anion Gap 8.7, BUN 37 H, Creatinine 0.80, Estimated Creat Clear 59, Estimated GFR 96, Est GFR ( Amer) 116, Glucose 95, Calcium 8.6 I & O for Last 24 hours: Intake & Output 10/18/23 10/19/23 10/20/23 10/21/23 23:59 23:59 23:59 23:59 Intake Total 270 / 270 1150 / 1270 965 / 1085 390 / 390 Output Total 900 / 900 600 / 1000 500 / 500 Balance 270 / 270 250 / 370 365 / 85 -110 / -110 Weight 57.351 kg 58.83 kg 57.788 kg 58.74 kg Constitutional Constitutional: no acute distress *Routine HEENT Exam Head: Present normocephalic Eye: Present EOMI and PERRL ENT: Present mucous membranes moist *Routine Neck Exam Neck: Present supple; Absent lymphadenopathy *Routine Respiratory Exam Respiratory: Present diminished air movement *Routine Cardiovascular Exam Cardiovascular: Present RRR *Routine Abdominal Exam Abdominal: Present soft and normoactive bowel sounds; Absent tenderness *Routine Extremities Exam Extremities: Absent cyanosis, clubbing or edema *Routine Skin Exam Skin: Present warm; Absent rash *Routine Neurological Exam Neurological: Present alert and oriented X3 Results Data Completed and Pending Labs on day of discharge: Labs from last 24 hours 10/21/23 07:50 WBC 6.6 RBC 4.57 L Hgb 14.0 L Hct 44.4 MCV 97.3 H MCH 30.7 MCHC 31.5 L RDW 14.9 Plt Count 209 MPV 9.7 Neut % (Auto) 53.4 Lymph % (Auto) 32.5 [place] % (Auto) 9.8 H Eos % (Auto) 3.6 Baso % (Auto) 0.8 Neut # (Auto) 3.5 Lymph # (Auto) 2.2 [place] # (Auto) 0.7 Eos # (Auto) 0.2 Baso # (Auto) 0.1 Sodium 137 Potassium 3.7 Chloride 102 Carbon Dioxide 30 Anion Gap 8.7 BUN 37 H Creatinine 0.80 Estimated Creat Clear 59 Estimated GFR 96 Est GFR ( Amer) 116 Glucose 95 Calcium 8.6 DS: Diagnosis Discharge Diagnosis (1) Acute hypoxemic respiratory failure: Status: Acute Code(s): J96.01 - Acute respiratory failure with hypoxia (2) Community acquired pneumonia: Status: Acute Code(s): J18.9 - Pneumonia, unspecified organism Qualifiers: Laterality: unspecified laterality Qualified Code(s): J18.9 - Pneumonia, unspecified organism (3) Systolic heart failure: Status: Acute Code(s): I50.20 - Unspecified systolic (congestive) heart failure Qualifiers: Heart failure chronicity: unspecified Qualified Code(s): I50.20 - Unspecified systolic (congestive) heart failure (4) HLD (hyperlipidemia): Status: Chronic Code(s): E78.5 - Hyperlipidemia, unspecified Qualifiers: Hyperlipidemia type: mixed hyperlipidemia Qualified Code(s): E78.2 - Mixed hyperlipidemia (5) HTN (hypertension): Status: Chronic Code(s): I10 - Essential (primary) hypertension Qualifiers: Hypertension type: essential hypertension Qualified Code(s): I10 - Essential (primary) hypertension (6) CAD (coronary artery disease): Status: Chronic Code(s): I25.10 - Atherosclerotic heart disease of [place] coronary artery without angina pectoris Qualifiers: Associated angina: with other forms of angina Coronary Disease-Associated Artery/Lesion type: [place] artery [place] vs. transplanted heart: [place] heart Qualified Code(s): I25.118 - Atherosclerotic heart disease of [place] coronary artery with other forms of angina pectoris (7) S/P BKA (below knee amputation) bilateral: Status: Chronic Code(s): Z89.512 - Acquired absence of left leg below knee; Z89.511 - Acquired absence of right leg below knee Meds Home Medications and Allergies Home Medications Medication Instructions Recorded Confirmed Type gabapentin 400 mg capsule 400 mg PO DAILY Pain 10/06/20 10/19/23 History atorvastatin 80 mg tablet 80 mg PO HS Cholesterol 05/15/22 10/19/23 History cetirizine 10 mg tablet 10 mg PO DAILY Allergy symptoms 05/15/22 10/19/23 History clopidogrel 75 mg tablet 75 mg PO DAILY CVA 05/15/22 10/19/23 History famotidine 20 mg tablet 20 mg PO BID Acid Reflux 05/15/22 10/19/23 History nystatin 100,000 unit/gram topical 10,000 unit topical BID 10/18/23 10/19/23 History powder (Nystop) apixaban 5 mg tablet 5 mg PO BID Blood thinner/CVA 10/19/23 10/19/23 History duloxetine 20 mg capsule,delayed 20 mg PO DAILY Mood 10/19/23 10/19/23 History release esomeprazole magnesium 20 mg 20 mg PO DAILY Acid Reflux 10/19/23 10/19/23 History capsule,delayed release methocarbamol 750 mg tablet 750 mg PO BID Muscle Spasm 10/19/23 10/19/23 History metoprolol tartrate 25 mg tablet 12.5 mg PO DAILY High Blood 10/19/23 10/19/23 History Pressure sacubitril 24 mg-valsartan 26 mg 1 tab PO BID High Blood Pressure 10/19/23 10/19/23 History tablet (Entresto) cefdinir 300 mg capsule 300 mg PO BID 5 days #10 caps 10/21/23 Rx furosemide 40 mg tablet (Lasix) 40 mg PO DAILY #30 tabs 10/21/23 Rx New Prescriptions to Start Prescriptions: cefdinir Kleber,Irfan furosemide [Lasix] Kleber,Irfan Allergies Allergy/AdvReac Type Severity Reaction Status Date / Time sulfamethoxazole Allergy Intermediate Verified 10/18/23 18:14 [From Bactrim] trimethoprim [From Bactrim] Allergy Intermediate Verified 10/18/23 18:14 zolpidem [From Ambien] Allergy Unknown PT STATES Verified 10/18/23 18:14 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 Discharge Plan Disposition Patient Disposition: er [facility] Discharge Order Discharge Orders: Discharge Order (Routine); Ordered 10/21/23 Ordered By: Claire Shahid Follow up Plan Follow up with: Reginald Hooks MD [Physician] - 11/19/23 1:00 pm (4-week follow-up with a PFT testing. No Walk/.. 11/19/23 complete pft 8:00) Prescriptions/Medication Reconciliation: New furosemide [Lasix] 40 mg tablet 40 mg PO DAILY Qty: 30 0RF cefdinir 300 mg capsule 300 mg PO BID 5 Days Qty: 10 0RF Continued gabapentin 400 mg capsule 400 mg PO DAILY atorvastatin 80 mg tablet 80 mg PO HS cetirizine 10 mg Tablet 10 mg PO DAILY famotidine 20 mg tablet 20 mg PO BID clopidogrel 75 mg tablet 75 mg PO DAILY Patient Comments: TAKE 1 TABLET BY MOUTH ONCE DAILY nystatin [Nystop] 100,000 unit/gram powder 10,000 unit TOPICAL BID esomeprazole magnesium 20 mg capsule,delayed release(DR/EC) 20 mg PO DAILY metoprolol tartrate 25 mg tablet 12.5 mg PO DAILY duloxetine 20 mg capsule,delayed release(DR/EC) 20 mg PO DAILY methocarbamol 750 mg tablet 750 mg PO BID apixaban 5 mg tablet 5 mg PO BID Entresto 24-26 mg tablet 1 tab PO BID Other Ambulatory Orders: Home Medical Equipment (Routine) Location: None Selected Ordered By: Claire Shahid Home Medical Equipment (Routine) Location: None Selected Ordered By: Claire Shahid RT complete PFT (Routine) Timeframe: 4 Weeks Facility: [facility] - Location: Respiratory Therapy Ordered By: Reginald Hooks Problem Reconciliation Problems Reviewed?: Yes Patient Discharge Instructions ACTIVITY: Ambulate as tolerated DIET: continue same diet Patient Instructions: DI for Pneumonia -- Adult, DI for Diarrhea and Traveler's Diarrhea -- Adult, DI for Diarrhea and Traveler's Diarrhea -- Child, DI for Nausea -- Adult, DI for Nausea -- Child, DI for Respiratory Failure Providers Primary Care Provider: Provider,Referral Admit Provider: Claire Shahid Attending Provider: Claire Shahid
--- NOTE | 2023-10-21 11:30 | P.PN_ITS ---
Subjective *Date: 10/21/23 *Time: 11:30 Medical Exam Vital signs and Labs for Last 24 Hours: Vital Signs Temp Pulse Pulse Resp BP Pulse Ox O2 Del Method 10/21/23 08:00 Nasal Cannula 10/21/23 08:00 80 10/21/23 07:37 97.6 F 86 16 126/60 92 L Nasal Cannula 10/21/23 06:52 Nasal Cannula 10/21/23 04:00 97.4 F L 74 16 112/59 L 92 L Room Air 10/21/23 00:00 96 Nasal Cannula 10/21/23 05:00 Room Air 10/21/23 03:00 Room Air 10/21/23 01:00 Room Air 10/20/23 23:00 Room Air 10/20/23 21:00 Room Air 10/21/23 04:00 74 10/21/23 00:00 80 10/21/23 00:00 97.5 F L 74 17 109/51 L 92 L Room Air 10/20/23 20:00 94 H 10/20/23 20:00 98.7 F 77 16 126/63 90 L Room Air 10/20/23 16:00 66 10/20/23 18:24 Room Air 10/20/23 17:00 Room Air 10/20/23 16:00 95 Room Air 10/20/23 15:33 98.4 F 73 18 109/56 L 93 L Nasal Cannula 10/20/23 15:00 Nasal Cannula 10/20/23 13:00 Room Air 10/20/23 11:32 98.3 F 59 L 17 111/58 L 91 L Nasal Cannula O2 Flow Rate 10/21/23 08:00 2 10/21/23 08:00 10/21/23 07:37 2 10/21/23 06:52 2 10/21/23 04:00 10/21/23 00:00 2 10/21/23 05:00 10/21/23 03:00 10/21/23 01:00 10/20/23 23:00 10/20/23 21:00 10/21/23 04:00 10/21/23 00:00 10/21/23 00:00 10/20/23 20:00 10/20/23 20:00 10/20/23 16:00 10/20/23 18:24 10/20/23 17:00 10/20/23 16:00 10/20/23 15:33 2 10/20/23 15:00 2 10/20/23 13:00 10/20/23 11:32 2 Intake and Output 10/20/23 10/21/23 10/21/23 23:59 07:59 15:59 Intake Total 335 / 1085 390 / 390 Output Total 400 / 1000 500 / 800 300 / 800 Balance -65 / 85 -110 / -410 -300 / -410 Intake: Intake, Oral Amount 335 / 1085 390 / 390 Output: Output, Urine Amount 400 / 1000 500 / 800 300 / 800 Other: Number of Voids 2 2 Number of Unmeasured Voids 1 0 1 Number of Bowel Movements 1 Weight 58.74 kg Patient Weight 10/21/23 23:59 Weight 58.74 kg Laboratory Results - last 24 hr 10/21/23 07:50: WBC 6.6, RBC 4.57 L, Hgb 14.0 L, Hct 44.4, MCV 97.3 H, MCH 30.7, MCHC 31.5 L, RDW 14.9, Plt Count 209, MPV 9.7, Neut % (Auto) 53.4, Lymph % (Auto) 32.5, [place] % (Auto) 9.8 H, Eos % (Auto) 3.6, Baso % (Auto) 0.8, Neut # (Auto) 3.5, Lymph # (Auto) 2.2, [place] # (Auto) 0.7, Eos # (Auto) 0.2, Baso # (Auto) 0.1, Sodium 137, Potassium 3.7, Chloride 102, Carbon Dioxide 30, Anion Gap 8.7, BUN 37 H, Creatinine 0.80, Estimated Creat Clear 59, Estimated GFR 96, Est GFR ( Amer) 116, Glucose 95, Calcium 8.6 I & O for Labs for Last 24 Hours: Intake & Output 10/18/23 10/19/23 10/20/23 10/21/23 23:59 23:59 23:59 23:59 Intake Total 270 / 270 1150 / 1270 965 / 1085 390 / 390 Output Total 900 / 900 600 / 1000 800 / 800 Balance 270 / 270 250 / 370 365 / 85 -410 / -410 Weight 57.351 kg 58.83 kg 57.788 kg 58.74 kg The patient's infection will respond to the chosen ABx?: Yes Is the patient receiving the right drug, dose, and route?: Yes Could a more targeted ABx be ordered?: No (AFEBRILE, WBC DECREASED, CULTURES PENDING)
--- NOTE | 2023-10-21 16:54 | PC.NURSE ---
Addendum entered by Alida Monzon RN 10/21/23 17:30: late entry: notified [facility] of delay in transport. no issues, okay for late arrival. Original Note: called ems for an update on transport time, at this time it will be atleast 3 more hrs.
[2023-10-21 20:00] VITALS: BP 119/86; PULSE 71; RESP 16; TEMP 36.6; O2SAT 92
--- NOTE | 2023-10-21 20:35 | PC.NURSE ---
Patient alert and orient X4. Denied any pain or discomfort at beginning of shift. Patient requested for HS medication to be given when he gets to the [facility]. EMT arrived at 2019 and patient left unit via stretcher at 2029. VSS. No pain voiced. Lung sounds diminished but clear. No cough noted. 2L per NC on patient at discharge. [facility] aware of new 02 orders.
--- NOTE | 2023-10-21 21:09 | PC.NURSE ---
Patient left floor with EMS at 20:30.
== END 2023-10-21 20:30 | DRG 291 ==
LOC: ER 15:51 → 2ND 10-19 02:21
PROVIDERS: Emergency Medicine; Physician Assistant; Admitting Provider Internal Medicine; Emergency Provider Emergency Medicine; Visit Provider Internal Medicine
DX: I11.0 Hypertensive heart disease with heart failure (principal); J18.9 Pneumonia, unspecified organism; J96.01 Acute respiratory failure with hypoxia; I50.20 Unspecified systolic (congestive) heart failure; J43.9 Emphysema, unspecified; E78.2 Mixed hyperlipidemia; I25.118 Atherosclerotic heart disease of native coronary artery with other forms of angina pectoris; Z89.511 Acquired absence of right leg below knee; Z89.512 Acquired absence of left leg below knee; I25.5 Ischemic cardiomyopathy; Z89.519 Acquired absence of unspecified leg below knee
CPT/HCPCS: 36415; 71045; 80048; 80053; 82803; 82962; 83605; 83735; 83880; 84145; 84484; 85007; 85025; 85378; 87040; 87636; 94640; 94761; 99285; J0131; J0456; J0696

== ENCOUNTER 2023-11-23 07:34 | Outpatient (CLI) | payer MEDICARE, MEDICAID, SELFPAY ==
[2023-11-23 09:00] VITALS: PULSE 78
[2023-11-23] MEDS: ALBUTEROL 0.083% 2.5 MG/3 ML NEB IH (09:00)
== END 2023-11-23 23:59 ==
LOC: RT 07:35
PROVIDERS: PCP Family Medicine; Visit Provider Internal Medicine Pulmonary Disease
DX: J43.8 Other emphysema (principal); R06.02 Shortness of breath
CPT/HCPCS: 94060; 94640; 94726; 94729

== ENCOUNTER 2024-03-27 14:10 | Outpatient (CLI) | payer MEDICARE, MEDICAID, SELFPAY ==
--- NOTE | 2024-03-27 14:19 | CT_ITS ---
FINAL REPORT TECHNIQUE: Axial images were obtained from the lung apex to the mid abdomen by computed tomography. This study was performed with techniques to keep radiation doses as low as reasonably achievable (ALARA). Individualized dose reduction techniques using automated exposure control or adjustment of mA and/or kV according to the patient's size were employed. CLINICAL HISTORY: lung cancer screening 08/21 ppd x 52 years FINDINGS: CHEST CT LOW DOSE CTDI vol (mGy): 2.90 DLP (mGy-cm): 96.38 There is no axillary adenopathy. There is severe coronary artery calcification. Multiple borderline sized mediastinal nodes are identified. The heart is normal in size. There is no pericardial or pleural effusion. There is a calcified granuloma in the left upper lobe. There is mild bibasilar atelectasis or scar. There is a right middle lobe nodule measuring 2 mm well seen on image 47. Limited images of the upper abdomen are unremarkable. IMPRESSION: Right middle lobe nodule. Modifier S: Severe coronary artery calcification. Lung RADS category 2 S. Recommend 12 month follow-up low-dose chest CT. Reviewed, Interpreted and Dictated by Sarkis Carvalho III, MD Transcribed by Amarilis Ramos Authenticated and [facility]
== END 2024-03-27 23:59 | disposition home or self-care (01) ==
LOC: RAD 14:11
PROVIDERS: PCP Family Medicine; Visit Provider Internal Medicine Pulmonary Disease
DX: F17.210 Nicotine dependence, cigarettes, uncomplicated (principal)
CPT/HCPCS: 71271

== ENCOUNTER 2024-09-17 11:18 | Outpatient (CLI) | payer MEDICARE, MEDICAID, SELFPAY ==
[2024-09-17 11:41] LABS: Basophils # 0.1 K/mm3 (0-0.2); Basophils % 0.8 % (0.1-2.0); Eosinophils # 0.1 K/mm3 (0.0-0.4); Eosinophils % 1.5 % (0.1-12.0); Hematocrit 44.6 % (42.0-52.0); Hemoglobin 14.6 g/dL (14.1-18.0); Lymphocytes # 2.1 K/mm3 (0.7-4.5); Lymphocytes % 35.8 % (10-50); Mean Corpuscular HGB Conc 32.7 g/dL (31.8-35.4); Mean Corpuscular Hemoglobin 29.9 pg (27.0-31.2); Mean Corpuscular Volume 91.4 fl (80-94); Mean Platelet Volume 10.6 fl (7.4-10.4); Monocytes # 0.8 K/mm3 (0.1-1.0); Monocytes % 13.2 % (1.7-9.3); Neutrophils # 2.9 K/mm3 (1.8-7.8); Neutrophils % 48.4 % (37.0-80.0); Platelet Count 220 K/mm3 (142-424); Red Blood Count 4.88 M/mm3 (4.60-6.20); Red Cell Distribution Width 14.4 % (11.5-17.5); White Blood Count 5.9 K/mm3 (4.8-10.8)
[2024-09-17 12:14] LABS: Alanine Aminotransferase 25 U/L (12-78); Albumin Level 3.9 g/dl (3.5-5.0); Alkaline Phosphatase 79 U/L (38-126); Anion Gap 9.1 mEq/L (5-15); Aspartate Amino Transferase 30 U/L (17-59); Bilirubin,Direct 0.2 mg/dl (0.0-0.4); Bilirubin,Indirect 0.4 mg/dL (0.0-0.9); Bilirubin,Total 0.6 mg/dl (0.2-1.3); Bilirubin,Unconjugated 0.3 mg/dL (0.0-1.1); Blood Urea Nitrogen 17 mg/dl (9-20); Calcium 9.3 mg/dl (8.4-10.2); Carbon Dioxide 29 mmol/L (22.0-30.0); Chloride 105 mmol/L (98-107); Chol/HDL Ratio 6.6 (1-3.5); Cholesterol 99 mg/dl (140-200); Estimated Glomerular Filt Rate 134 ml/min (>60); GFR (African American) 162 ML/MIN (>60); Glucose 115 mg/dl (74-100); HDL Cholesterol 15 mg/dl (40-60); Magnesium 1.9 mg/dl (1.6-2.3); Potassium 4.1 mmoL/L (3.5-5.1); Sodium 139 mmol/L (136-145); Total Protein,Serum 6.9 g/dl (6.3-8.2); Triglycerides 185 mg/dl (30-150); VLDL Cholesterol 37 mg/dL (0-40)
[2024-09-17 12:25] LABS: Direct LDL Cholesterol 58.69 mg/dL (100-129)
[2024-09-17 12:30] LABS: Free T4 (Free Thyroxine) 0.98 ng/dl (0.78-2.19)
[2024-09-17 12:43] LABS: Thyroid Stimulating Hormone 3.66 uIU/mL (0.465-4.68)
== END 2024-09-17 23:59 | disposition home or self-care (01) ==
PROVIDERS: PCP Nurse Practitioner Family; Visit Provider Physician Assistant
DX: K21.9 Gastro-esophageal reflux disease without esophagitis (principal); I10 Essential (primary) hypertension; I25.118 Atherosclerotic heart disease of native coronary artery with other forms of angina pectoris; Z89.611 Acquired absence of right leg above knee; Z89.612 Acquired absence of left leg above knee; I50.20 Unspecified systolic (congestive) heart failure; I48.0 Paroxysmal atrial fibrillation; R94.31 Abnormal electrocardiogram [ECG] [EKG]
CPT/HCPCS: 36415; 80048; 80061; 80076; 83735; 84439; 84443; 85025

== ENCOUNTER 2025-04-27 12:58 | Outpatient (CLI) | payer MEDICARE, MEDICAID, SELFPAY ==
--- NOTE | 2025-04-27 13:01 | CT_ITS ---
FINAL REPORT TECHNIQUE: Thin section axial images were obtained through the lungs using a low-dose technique per lung cancer screening protocol. Reconstruction images were obtained using the axial data. Exam was performed using dose reduction technique. This study was performed with techniques to keep radiation doses as low as reasonably achievable (ALARA). Individualized dose reduction techniques using automated exposure control or adjustment of mA and/or kV according to the patient's size were employed. CLINICAL HISTORY: lung cancer screening current smoker 1ppd x53 years COMPARISON: 03/27/2024 FINDINGS: CTDLvol: 2.90 DLP: 97.95 Current smoker 53 pack year history Lungs: Changes of emphysema are present, as well as evidence of prior granulomatous disease. There is a 2 mm right middle lobe nodule seen best on image #46 of series 4, stable. There is a new 4 mm ground glass nodule in the right upper lobe, not seen on a prior examination. Lymph nodes: There is a 17 mm AP window lymph node present, which is stable since the prior exam. No new adenopathy is identified. Mediastinum: Heart size is normal. Severe coronary artery calcifications are once again identified. Pleura/pericardium: No pleural or pericardial effusion. Other: No acute abnormality in the upper abdomen. IMPRESSION: New 4 mm ground glass nodule in the right upper lobe as described. Lung RADS: 3S, the S for severe coronary artery calcifications. Recommendation: 6-month follow-up LDCT. Reviewed, Interpreted and Dictated by Guerda Marshall MD Transcribed by Jazmine Parker Authenticated and [facility]
--- OUTSIDE RECORDS SUMMARY | 2025-04-27 13:01 | XMS_ITS | Encounter Summary ---
Author Organization Healthcare Address [address] [place] [address] Care Team Providers Care Cartoon Animator Name Role Phone Inder Mendez MD Primary Care Provider [phone] Encounter Details Date Type Department Care Team (Late st Contact Info) Description 05/17/2021 Orders Only External Location [address] [place] [address] Jannie Arnett [address] [place], [place] [address] Social History Tobacco Use Types Packs/Day Years Used Date Smoking Tobacco: Never Assessed Sex and Gender Information Value Date Recorded Sex Assigned at Not on file Legal Sex Male 8:07 PM EDT Gender Identity Not on file Sexual Orientation Not on file documented as of this encounter Plan of Treatment Not on file documented as of this encounter Procedures Procedure Name Priority Date/Time Associated Diagnosis Comments US OUTSIDE IMAGES 05/17/2021 6:13 PM EDT documented in this encounter Results * US OUTSIDE IMAGES (05/17/2021 6:13 PM EDT) Anatomical Region Laterality Modality Ultrasound 05/17/2021 6:13 PM EDT us Jannie Arnett IMG US PROCEDURES Final Result documented in this encounter Visit Diagnoses Not on filedocumented in this encounter Care Teams Cartoon Animator Relationship Specialty Start Date End Date Inder Mendez MD [address] [place] [address] PCP - General 12/31/20 documented as of this encounter
--- OUTSIDE RECORDS SUMMARY | 2025-04-27 13:01 | XMS_ITS | Encounter Summary ---
Author Organization Healthcare Address [address] [place] [address] Care Team Providers Care Physician Assistant Psychiatry Name Role Phone Inder Mendez MD Primary Care Provider [phone] Encounter Details Date Type Department Care Team (Late st Contact Info) Description 07/20/2023 Orders Only External Location [address] [place] [address] Nash Benavides MD [address] [place], [place] [id number] Social History Tobacco Use Types Packs/Day Years [...] Procedure Name Priority Date/Time Associated Diagnosis Comments IR OUTSIDE IMAGES 07/20/2023 7:23 AM EST documented in this encounter Results * IR OUTSIDE IMAGES (07/20/2023 7:23 AM EST) Anatomical Region Laterality Modality X-Ray Angiograph y 07/20/2023 7:23 AM EST Nash Benavides MD IMG IR PROCEDURES Final Result documented in this encounter Visit Diagnoses Not on filedocumented in this encounter Care Teams Physician Assistant Psychiatry Relationship Specialty Start Date End Date Inder Mendez MD [address] [place] [address] PCP - General 12/31/20 documented as of this encounter
--- OUTSIDE RECORDS SUMMARY | 2025-04-27 13:01 | XMS_ITS | Clinical Summary ---
Author Organization [facility] Address [address] [facility] [address] [place] [address] Phone Care Team Providers Care Relations Specialist Name Role Phone Lawrence Landeros Unavailable Unavailable Conditions or Problems Problem Name Problem Code Onset Date Status Entry Date Provider Comment Standard Description Annotate ENTEROCOCCU S INFECTION 393355470 (SNOMED CT) 04/13 Active 04/13 Letty Mensah Infection caused by Enterococcus ACINETOBACT ER INFECTION B96.89 (ICD-10-CM ) 04/13 Active 04/13 Letty Mensah Other specified bacterial agents as the cause of diseases classified elsewhere MDR INFECTION Z16.35 (ICD-10-CM ) 04/13 Active 04/13 Letty Rodrick 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 MRSA INFECTION 863162378 (SNOMED CT) 04/13 Active 04/13 Letty Rodrick Methicillin resistant Staphylococcus aureus infection OPEN WOUND, RIGHT THIGH, COMPLICATED 890.1 (ICD-9-CM) 04/13 Active 04/13 Letty Mensah Open wound of hip and thigh, complicated Diarrhea 52605812 (SNOMED CT) 01/20 Inactive 01/20 Letty Rodrick Diarrhea Candidiasis , skin 73846373 (SNOMED CT) 01/20 Inactive 01/20 Letty Rodrick Candidiasis of skin Candidiasis , skin 70472794 (SNOMED CT) 01/20 Removed 01/20 Kemal Giron MD Candidiasis of skin Diarrhea 45795376 (SNOMED CT) 01/20 Removed 01/20 Kemal Giron MD Diarrhea CELLULITIS, RIGHT THIGH 682.6 (ICD-9-CM) 01/14 Active 01/14 Letty Mensah Cellulitis and abscess of leg, except foot ABSCESS, RIGHT THIGH 682.6 (ICD-9-CM) 01/14 Active 01/14 Letty Mensah Cellulitis and abscess of leg, except foot LLE STUMP WOUND INFECTION (997.62) 682.6 (ICD-9-CM) 12/10 Inactive 11/14 Letty Mensah Cellulitis and abscess of leg, except foot INFECTION OF LEFT AMPUTATION STUMP T87.40 (ICD-10-CM ) 12/10 Inactive 11/14 Letty Mensah Infection of amputation stump, unspecified extremity HX RIGHT BKA Z89.519 (ICD-10-CM ) 12/10 Active 12/10 Letty Mensah 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 HX OF NONCOMPLIAN CE Z91.19 (ICD-10-CM ) 08/31 Active 08/31 Letty Mensah Patient's noncompliance with other medical treatment and regimen ETOH F10.10 (ICD-10-CM ) 08/31 Active 08/31 Micheline Saini Alcohol abuse, uncomplicated NCOMPL Z91.19 (ICD-10-CM ) 08/31 Inactive 08/31 Michelinerosalina Saini Patient's noncompliance with other medical treatment and regimen SKIN RASH, SEVERE 108679040 (SNOMED CT) 11/21 Inactive 11/21 Micheline Saini Eruption HX RIGHT BKA Z89.519 (ICD-10-CM ) 12/10 Inactive 12/10 Michelinerosalina Saini 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 BKA Z89.519 (ICD-10-CM ) 12/10 Removed 12/10 Sabrina W 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 HX LEFT AKA Z89.619 (ICD-10-CM ) 12/10 Active 12/10 Sabrina W Acquired absence of unspecified leg above knee TOBACCO ABUSE 86490938 (SNOMED CT) 12/10 Active 12/10 Sabrina W Tobacco dependence syndrome COPD 96704264 (SNOMED CT) 12/10 Active 12/10 Sabrina W Chronic obstructive pulmonary disease LEG PAIN, LEFT 84136658 (SNOMED CT) 11/14 Inactive 11/14 Sabrina W Pain in lower limb LLE STUMP WOUND INFECTION (997.62) 682.6 (ICD-9-CM) 12/10 Removed 11/14 Sabrina W Cellulitis and abscess of leg, except foot INFECTION OF LEFT AMPUTATION STUMP T87.40 (ICD-10-CM ) 12/10 Removed 11/14 Sabrina W Infection of amputation stump, unspecified extremity SKIN RASH, SEVERE 113241167 (SNOMED CT) 11/21 Removed 11/21 Nigel Torres MD Eruption CELLULITIS, LEG, LEFT 279432278 (SNOMED CT) 11/14 Correction 11/14 Susancortez Galdamezalfonso Cellulitis of lower limb LEG PAIN, LEFT 14693329 (SNOMED CT) 11/14 Removed 11/14 Susancortez Galdamezalfonso Pain in lower limb PVD 199783514 (SNOMED CT) 11/14 Active 11/14 Susan Denicealfonso Peripheral vascular disease INFECTION OF AMPUTATION STUMP NEC T87.40 (ICD-10-CM ) 11/14 Correction 11/14 Susancortez Galdamezalfonso Infection of amputation stump, unspecified extremity Medications Medication Instructions Start Date Stop Date Generic Name NDC Provider METOPROLOL SUCCINATE ER 25 MG [id number] Twice a day. METOPROLOL SUCCINATE 09700129749 Kemal Giron MD ASPIRIN EC 81 MG TBEC daily ASPIRIN 71647961107 Kemal Giron MD SANTYL OINT daily 04/19 COLLAGENASE OINT 09825480269 Kemal Giron MD OXYCODONE HCL 10 MG TABS every 4 hours as needed for pain OXYCODONE HCL 37317606414 Sarkis Zimmerman ZYVOX 600 MG TABS twice daily LINEZOLID 26623173233 Sarkis Zimmerman SANTYL OINT daily 04/19 COLLAGENASE OINT 17091684365 Sarkis Zimmerman GABAPENTIN 300 MG CAPS twice daily GABAPENTIN 48688991994 Sarkis Zimmerman PLAVIX 75 MG TABS daily CLOPIDOGREL BISULFATE 20716250933 Sarkis Zimmerman BENAZEPRIL HCL 40 MG TABS daily BENAZEPRIL HCL 44286669674 Sarkis Zimmerman ATORVASTATIN CALCIUM 40 MG TABS at night ATORVASTATIN CALCIUM 69298550550 Sarkis Zimmerman ASPIRIN 325 MG TABS daily 04/19 ASPIRIN 61769923359 Sarkis Zimmerman METOPROLOL TARTRATE 25 MG TABS 1 po bid 04/12 METOPROLOL TARTRATE 24814239824 Sarkis Zimmerman PLAVIX 75 MG TABS 1 po qd 04/12 CLOPIDOGREL BISULFATE 38664258409 Sarkis Zimmerman ATORVASTATIN CALCIUM 40 MG TABS 1 po qd 04/12 ATORVASTATIN CALCIUM 39180074128 Sarkis Zimmerman ASPIRIN 325 MG TABS 1 po qd 04/12 ASPIRIN 74988681305 Sarkis Zimmerman GABAPENTIN 300 MG CAPS 1 po bid 04/12 GABAPENTIN 06654379955 Sarkis Zimmerman ALEVE 220 MG CAPS p.o. q. 6h. p.r.n. 04/12 NAPROXEN SODIUM 54441324837 Sarkis Zimmerman BENAZEPRIL HCL 40 MG TABS p.o. daily 04/12 BENAZEPRIL HCL 92094412435 Sarkis Zimmerman MERREM 1 GM INTRAVENOUS SOLUTION RECONSTITUTED 1gm IV q8hr H [facility] MEROPENEM [phone] Patricia Petty RN ZOSYN SOLUTION RECONSTITUTED IV Q6hrs/[place] 02/22 PIPERACILLIN SOD-TAZOBACTAM SO SOLR 62745620596 Parisa Marshall RN MYCAMINE 100 MG SOLR IV Q 24hrs/[place] 0 02/22 MICAFUNGIN SODIUM 13067587525 Parisa Marshall RN VANCOMYCIN HCL SOLR 1GM IV Q 12hrs/[place] 0 02/17 VANCOMYCIN HCL SOLR 31538826699 Mandie Templeton RN ZOSYN SOLUTION RECONSTITUTED IV Q6hrs/[place] 05/17 PIPERACILLIN SOD-TAZOBACTAM SO SOLR 88106206235 Kim Jacome RN MYCAMINE 100 MG SOLR IV Q 24hrs/[place] 11/25 MICAFUNGIN SODIUM 90815422864 Kim Jacome RN VANCOMYCIN HCL SOLR 1GM IV Q 12hrs/[place] 08/20 VANCOMYCIN HCL SOLR 28631152798 Kim Jacome RN BENAZEPRIL HCL 40 MG TABS p.o. daily 04/12 BENAZEPRIL HCL 67554837231 Spike Arnold ALEVE 220 MG CAPS p.o. q. 6h. p.r.n. 11/18 NAPROXEN SODIUM 97871459071 Spike Arnold BENAZEPRIL HCL 40 MG TABS 1 po qd 02/11 BENAZEPRIL HCL 53757755553 pSike Chapa U FLUCONAZOLE 200 MG TABS Take 1 tablet by mouth daily 02/11 FLUCONAZOLE 35933424684 Spike Chapa U FORTAZ (IV) 02/11 FORTAZ (IV) Spike Chapa U FORTAZ (IV) 02/24 FORTAZ (IV) Nydia L GABAPENTIN 300 MG CAPS 1 po bid 02/17 GABAPENTIN 79478469287 Nydia L ASPIRIN 325 MG TABS 1 po qd 04/12 ASPIRIN 87806957394 Nydia L ATORVASTATIN CALCIUM 40 MG TABS 1 po qd 04/12 ATORVASTATIN CALCIUM 50547830138 Nydia L PLAVIX 75 MG TABS 1 po qd 04/12 CLOPIDOGREL BISULFATE 14757138222 Nydia L BENAZEPRIL HCL 40 MG TABS 1 po qd 02/11 BENAZEPRIL HCL 00060416827 Nydia L METOPROLOL TARTRATE 25 MG TABS 1 po bid 04/12 METOPROLOL TARTRATE 94659013326 Nydia L FORTAZ (IV) 01/21 FORTAZ (IV) Nydia L FLUCONAZOLE 200 MG TABS Take 1 tablet by mouth daily 11/18 FLUCONAZOLE 73243158267 Kemal Giron MD FORTAZ (IV) 01/21 FORTAZ (IV) Kemal Giron MD NORCO 7.5-325 MG ORAL TABLET 01/14 HYDROCODONE-ACETA MINOPHEN 57119424819 Spike Chapa U TYLENOL 8 HOUR CR-TABS 01/14 ACETAMINOPHEN CR-TABS 75015107103 Spike Chapa U FLUCONAZOLE 200 MG TABS 01/14 FLUCONAZOLE 60203914051 Spike W U ASPIRIN TABS 01/14 ASPIRIN TABS 42389036008 Spike Chapa U SB ASPIRIN EC TBEC 01/14 ASPIRIN TBEC 88377852635 Spike W U METOPROLOL TARTRATE 25 MG TABS 01/14 METOPROLOL TARTRATE 29964589942 Spike W U GABAPENTIN 300 MG CAPS 01/14 GABAPENTIN 52509040634 Spike W U BENAZEPRIL HCL 40 MG TABS 01/14 BENAZEPRIL HCL 28857399359 Spike Chapa U NORCO 7.5-325 MG ORAL TABLET 01/14 HYDROCODONE-ACETA MINOPHEN 91377981380 Anetra D Pandya TYLENOL 8 HOUR CR-TABS 11/18 ACETAMINOPHEN CR-TABS 77656870304 Anetra D Pandya FLUCONAZOLE 200 MG TABS 11/18 FLUCONAZOLE 31499710470 Anetra D Pandya ASPIRIN TABS 01/14 ASPIRIN TABS 65670747961 Anetra D Pandya LEVAQUIN TABS 05/07 LEVOFLOXACIN TABS 51602838383 Kemal Giron MD HYDROCODONE-ACETAM INOPHEN 7.5-325 MG TABS 05/07 HYDROCODONE-ACETA MINOPHEN 99031993513 Kemal Giron MD LEVAQUIN TABS 11/18 LEVOFLOXACIN TABS 05026685227 Kemal Giron MD BENADRYL ALLERGY 25 MG CAPS 04/23 DIPHENHYDRAMINE HCL 50404483927 Kemal Giron MD CYCLOBENZAPRINE HCL 10 MG TABS 04/23 CYCLOBENZAPRINE HCL 24689677837 Kemal Giron MD AMOXICILLIN-POT CLAVULANATE 875-125 MG TABS 12/11 AMOXICILLIN-POT CLAVULANATE 82782174154 Nigel Torres MD AMOXICILLIN-POT CLAVULANATE 875-125 MG TABS one po BID 12/18 AMOXICILLIN-POT CLAVULANATE 41085325905 Nigel Torres MD AMOXICILLIN-POT CLAVULANATE 875-125 MG TABS 12/11 AMOXICILLIN-POT CLAVULANATE 54646410301 Anetra D Pandya BENADRYL ALLERGY 25 MG CAPS 04/23 DIPHENHYDRAMINE HCL 73985238466 Hanane Torres SB ASPIRIN EC TBEC 01/14 ASPIRIN TBEC 99225650366 Hanane Torres METOPROLOL TARTRATE 25 MG TABS 01/14 METOPROLOL TARTRATE 91982154599 Hanane Torres HYDROCODONE-ACETAM INOPHEN 7.5-325 MG TABS 05/07 HYDROCODONE-ACETA MINOPHEN 69020842549 Hanane Torres CYCLOBENZAPRINE HCL 10 MG TABS 04/23 CYCLOBENZAPRINE HCL 12937951248 Hanane Torres GABAPENTIN 300 MG CAPS 02/17 GABAPENTIN 63626597541 Hanane Torres BENAZEPRIL HCL 40 MG TABS 01/14 BENAZEPRIL HCL 98245256986 Hanane Torres DOXYCYCLINE HYCLATE 100 MG TABS Take one tablet two times a day 11/26 DOXYCYCLINE HYCLATE 27775202962 Nigel Torres MD Medications Administered No information available. Allergies, Adverse Reactions, Alerts Allergy Name Reaction Description Start Date Severity Statu s Provider SULFA Moderate Active Spike W U DOXYCYCLINE HYCLATE Moderate Active Spike W U ATIVAN Moderate Active Anetra D Pandya AVAPRO Moderate Active Anetra D Pandya EXCEDRIN Moderate Active Hanane D ougherty VALIUM Moderate Active Hanane D ougherty BACTRIM Moderate Active Hanane D ougherty AMBIEN Moderate Active Anetra D Pandya Results Date Name Value Unit Range Flag Description Chart Maintenance: vanc trou gh entered VANCOMY CHAL 24.5 ug/mL vancomyc in level, serum, trough Lab Report: Basic Metabolic Panel GFR EST 69 mL/min estimated kvng merular filtration rate Lab Report: CBC w Auto Diff IMM GRANU % 0.3 % 0.0-0.6 N Immature granulocytes/100 leukocytes in Blood BASOPHIL % 0.4 % 0.0-1.0 N Basophils/ 100 leukocytes in Blood by Manual count % EOS AUTO 2.3 % 0.0-3.0 N Eosinophil s/100 leukocytes in Blood by Automated count MONOCYTE BF 9.2 % 0.0-12.0 N monocyte s as percent of body fluid leukocytes LYMPHOCY BF 26.2 % 24.0-44.0 N lymphoc ytes as percent of body fluid leukocytes NEUTROP BF 61.6 % 41.0-71.0 N Neutroph ils/100 leukocytes in Body fluid BASOABSOLMAN 0.04 K/MCL {Cells}/u L 0.00-0.20 N basophils, absolute, manual EOS ABSLT 0.21 10*3/uL 0.10-0.30 N Eosinophi ls [#/volume] in Blood MONOCYTABMAN 0.82 K/MCL {Cells}/u L 0.00-1.00 N monocytes, absolute, manual LYMPHSABSMAN 2.35 K/MCL {Cells}/u L 0.60-4.80 N lymphocytes, absolute, manual ABS NEUTROPH 5.51 10*3/uL 1.50-8.30 N Neutro phils [#/volume] in Blood RDW_ 13.3 11.3-14.5 N RDW, no uni ts MCHC 33.2 G/DL 32.0-36.0 N MCHC [Mass/ volume] by Automated count MCH 29.8 pg 27.0-31.0 N MCH [Entiti c mass] by Automated count MCV 89.7 fL 80.0-99.0 N MCV [Entiti c volume] by Automated count Lab Report: Comprehensive Me tabolic Panel ANIONGAP 12 mmol/L 3-11 H anion gap, s samira GFRC 71 mL/min/1. 73m2 Glomerular Filtration Rate Calculation ALBUMIN 4.1 g/dL 3.2-4.8 N Albumin [Mass/volume] in Serum or Plasma PROTEIN, TOT 8.3 g/dL 5.7-8.2 H Protein [Mass/volume] in Serum or Plasma CO2 20 mmol/L 20-31 N Carbon dioxid e, total [Moles/volume] in Venous blood CHLORIDE 103 mmol/L 99-109 N Chloride [Moles/volume] in Serum or Plasma Office Visit: rm. 12 MEDS REVIEW Done Documenta tion of current medications (procedure) SMOK ADVICE yes Smoking c essation education (procedure) CIGARET SMKG yes Tobacco smoking status SMOK STATUS Former smoker Tobacco smoking status Chart Maintenance: labs ESR 45 mm/h Erythrocyte sedimentation rate by Westergren method CRPCARDRISK 28.0 mg/L C reactiv e protein [Mass/volume] in Serum or Plasma LYMPHS % 21 % Lymphocytes/ 100 leukocytes in Blood by Automated count PMN % 61 % Neutrophils/1 00 leukocytes in Blood by Automated count PLATELETS 189 10*3/mm3 Platelets [#/volume] in Blood by Automated count HCT 32.4 % Hematocrit [V olume Fraction] of Blood by Automated count HGB 11.8 g/dL Hemoglobin [Mass/volume] in Blood RBC 3.71 10*6/mm3 Erythrocytes [#/volume] in Blood by Automated count WBC 11.0 10*3/mm3 Leukocytes [#/volume] in Blood by Automated count BILI TOTAL 0.3 mg/dL Bilirubin. total [Mass/volume] in Serum or Plasma SGOT (AST) 10 U/L Aspartate aminotransferase [Enzymatic activity/volume] in Serum or Plasma SGPT (ALT) 19 U/L Alanine aminotransferase [Enzymatic activity/volume] in Serum or Plasma ALK PHOS 94 U/L Alkaline john paul sphatase [Enzymatic activity/volume] in Blood CREATININE 0.7 mg/dL Creatinine [Mass/volume] in Serum or Plasma BUN 19 mg/dL Urea nitrogen [Mass/volume] in Serum or Plasma CALCIUM 9.8 mg/dL Calcium [Moles/volume] in Serum or Plasma POTASSIUM 4.2 mmol/L Potassium [Moles/volume] in Serum or Plasma SODIUM 130 mmol/L Sodium [Moles/volume] in Serum or Plasma GLUCOSE SER 108 mg/dL Glucose [Mass/volume] in Serum or Plasma Plan of Care Type Date Detail Pending order Continue IV anti biotics Pending order Continue oral an tibiotics Pending order Weekly PICC Line Care Pending order Weekly Labs (Con tinue) Pending order Continue IV anti biotics Pending order New Oral Antibio tic Pending order CMP Pending order CBC with Differe ntial Patient education Medications Procedures Code Procedure Name Date Entry Date CPT-ca Continue IV antibiotics 2014 CPT-chanel New Oral Antibiotic CPT-70555 CMP CPT-20105 CBC with Differential 04/23 Vital Signs Date Name Value Unit Description BMI (Body Mass Index) 22.57 kg/m2 Bod y Mass Index (Ratio) Body Temperature 97.2 [degF] temperat ure E&M BP Diastolic 76 mm[Hg] blood pressu re, diastolic BP Systolic 116 mm[Hg] blood pressur e, systolic Heart Rate 68 /min pulse rate Height 64 [in_us] height E&M Respiratory Rate 20 /min respirat ory rate E&M Weight Measured 131 [lb_av] weight E& M Weight Measured 131 [lb_av] weight E& M Immunizations No information available. Advance Directives No information available.
--- OUTSIDE RECORDS SUMMARY | 2025-04-27 13:01 | XMS_ITS | Encounter Summary ---
Author Organization Healthcare Address [address] [place] [address] Care Team Providers Care End User Consultant Name Role Phone Inder Mendez MD Primary Care Provider [phone] Encounter Details Date Type Department Care Team (Late st Contact Info) Description 06/25/2023 Orders Only External Location [address] [place] [address] Zaire Lee PA [address] [place], [place] [id number] Social History Tobacco Use Types Packs/Day Years [...] Procedure Name Priority Date/Time Associated Diagnosis Comments MR OUTSIDE IMAGES 06/25/2023 1:22 PM EST documented in this encounter Results * MR transfer of outside films (06/25/2023 1:22 PM EST) Anatomical Region Laterality Modality Magnetic Resonan ce 06/25/2023 1:22 PM EST us Zaire TORRES IMG MRI PROCEDURES Final Resul t documented in this encounter Visit Diagnoses Not on filedocumented in this encounter Care Teams End User Consultant Relationship Specialty Start Date End Date Inder Mendez MD [address] [place] [id number] PCP - General 12/31/20 documented as of this encounter
--- OUTSIDE RECORDS SUMMARY | 2025-04-27 13:02 | XMS_ITS | Clinical Summary ---
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 Active cetirizine (ZyrTEC) 10 MG tablet Take 1 tablet (10 mg) by mouth 1 (one) time each day. Active clopidogrel (Plavix) 75 MG tablet Take by mouth 1 (one) time each day. Active DULoxetine (Cymbalta) [address] capsule Take 1 capsule (20 mg) by mouth 1 (one) time each day. Do not crush or chew. Active apixaban (Eliquis) 5 MG tablet Take 1 tablet (5 mg) by mouth 2 (two) times a day. Active sacubitril-vals haven (Entresto) 24-26 MG tablet Take 1 tablet by mouth 2 (two) times a day. Active gabapentin (Neurontin) 400 MG capsule Take 1 capsule (400 mg) by mouth. Active loperamide (Imodium) 2 MG capsule Take 1 capsule (2 mg) by mouth 4 (four) times a day if needed for diarrhea. Active melatonin 3 MG tablet Take by mouth. Active methocarbamol (Robaxin) 750 MG tablet Take 1 tablet (750 mg) by mouth 2 (two) times a day. Active metoprolol tartrate (Lopressor) 25 MG tablet Take by mouth 1 (one) time each day. Active Multiple Vitamin (multivitamin) tablet Take 1 tablet by mouth 1 (one) time each day. Active famotidine (Pepcid) 20 MG tablet Take by mouth. Active ondansetron (Zofran) 4 MG tablet Take 1 tablet (4 mg) by mouth every 6 (six) hours if needed for nausea or vomiting. Active Active Problems Problem Noted Date Diagnosed Date Atherosclerotic heart diseas e of [place] coronary artery without angina pectoris 09/12/2023 Social History Tobacco Use Types Packs/Day Years Used Date Smoking Tobacco: Every Day Cigarettes 0.5 50 Smokeless Tobacco: Never Tobacco Cessation:Ready to Q uit: Not Asked; Counseling Given: Not Answered Alcohol Use Standard Drinks/Week Comments Yes 0 (1 standard drink = 0.6 oz pur e alcohol) PHQ-2 Answer Date Recorded Patient Health Questionnaire-2 Score 0 09/12/2023 Sex and Gender Information Value Date Recorded Sex Assigned at Not on file Legal Sex Male 8:07 PM EDT Gender Identity Not on file Sexual Orientation Not on file Last Filed Vital Signs Vital Sign Reading Time Taken Comments Blood Pressure 122/82 09/12/2023 7:41 AM EST Pulse 88 09/12/2023 7:41 AM EST Temperature - - Respiratory Rate - - Oxygen Saturation 92% 09/12/2023 7:41 AM EST Inhaled Oxygen Concentration - - Weight 54.4 kg (120 lb) 09/12/2023 7:41 AM EST Height - - Body Mass Index - - Plan of Treatment Health Maintenance Due Date Last Done Comments [facility]-Hepatitis C Screening 1955 [facility]-Medicare Annual Wellness (AWV) 1955 [facility]-Infant/Child/Adol SDOH Screenings 1955 [facility]- SDOH Screenings 1973 [facility]-Adult SDOH Screenings 1973 [facility]-DTaP,Tdap,and Td Vaccine s (1 - Tdap) 1974 CT Colonography 2000 Colonoscopy 2000 [facility]-DNA 2000 FIT 2000 FOBT 2000 Sigmoidoscopy 2000 [facility]-Colorectal Cancer Screening 2000 [facility]-Pneumococcal Vaccine: 50 + Years (1 of 1 - PCV) 2005 [facility]-Zoster Vaccines (1 of 2) 2005 [facility]-Depression Screening 09/12/2024 09/12/2023 [id number] Vaccine (4 - 2024- season) 2025 05/22/2022, 12/20/2021, 08/04/2021 [facility]-Influenza Vaccine (#1) 04/20/202505/09, 08/05/2019, 05/22/2016 [facility]-RSV Vaccine: 60+ Years o r (1 - 1-dose 75+ series) 2030 [facility]-Diabetes: Hemoglobin A1C Discontinued 05/18/2021 HPV Vaccines Aged Out No longer eligi ble based on patient's age to complete this topic [facility]-HIB Vaccines Aged Out No longer e ligible based on patient's age to complete this topic [facility]-Hepatitis A Vaccines Aged Out No longer eligible based on patient's age to complete this topic [facility]-IPV Vaccines Aged Out No longer e ligible based on patient's age to complete this topic [facility]-Rotavirus Vaccines Aged Out No lo nger eligible based on patient's age to complete this topic Insurance [facility] MEDICARE [place]ICAID-[place] 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
== END 2025-04-27 23:59 | disposition home or self-care (01) ==
LOC: RAD 12:58
PROVIDERS: PCP Pediatrics; Visit Provider Internal Medicine Pulmonary Disease
DX: I25.10 Atherosclerotic heart disease of native coronary artery without angina pectoris (principal); R91.1 Solitary pulmonary nodule; Z12.2 Encounter for screening for malignant neoplasm of respiratory organs; F17.210 Nicotine dependence, cigarettes, uncomplicated
CPT/HCPCS: 71271

== ENCOUNTER 2025-05-11 08:13 | Outpatient (CLI) | payer MEDICARE, MEDICAID, SELFPAY ==
[2025-05-11 08:27] LABS: Hematocrit 42.7 % (42.0-52.0); Hemoglobin 14.2 g/dL (14.1-18.0); Immature Granulocytes % 0.5 %; Mean Corpuscular HGB Conc 33.3 g/dL (31.8-35.4); Mean Corpuscular Hemoglobin 30.9 pg (27.0-31.2); Mean Corpuscular Volume 93.0 fl (80-94); Nucleated Red Blood Cells % 0 %; Platelet Count 209 K/mm3 (142-424); Red Blood Count 4.59 M/mm3 (4.60-6.20); Red Cell Distribution Width-SD 47.3 fL; White Blood Count 6.3 K/mm3 (4.8-10.8)
[2025-05-11 08:47] LABS: Albumin Level 3.6 g/dl (3.5-5.0); Chloride 105 mmol/L (98-107); Potassium 3.8 mmoL/L (3.5-5.1); Sodium 140 mmol/L (136-145)
[2025-05-11 08:50] LABS: Alanine Aminotransferase 15 U/L (12-78); Albumin/Globulin Ratio 1.2 (1.1-1.8); Alkaline Phosphatase 99 U/L (38-126); Anion Gap 10.8 mEq/L (5-15); Aspartate Amino Transferase 23 U/L (17-59); Bilirubin,Total 0.6 mg/dl (0.2-1.3); Blood Urea Nitrogen 17 mg/dl (9-20); Calcium 8.9 mg/dl (8.4-10.2); Carbon Dioxide 28 mmol/L (22.0-30.0); Cholesterol 85 mg/dl (140-200); Creatinine,Serum 0.80 mg/dl (0.66-1.25); Estimated Glomerular Filt Rate 96 ml/min (>60); GFR (African American) 116 ML/MIN (>60); Globulin 3.0 g/dL (1.3-3.2); Glucose 108 mg/dl (74-100); Total Protein,Serum 6.6 g/dl (6.3-8.2); Triglycerides 105 mg/dl (30-150)
[2025-05-11 08:51] LABS: HDL Cholesterol 19 mg/dl (40-60)
== END 2025-05-11 23:59 | disposition home or self-care (01) ==
PROVIDERS: PCP Family Medicine; Visit Provider Family Medicine
DX: J44.9 Chronic obstructive pulmonary disease, unspecified (principal); E78.5 Hyperlipidemia, unspecified; I10 Essential (primary) hypertension
CPT/HCPCS: 36415; 80053; 80061; 85025